=== PATIENT | female | born 1960 | race Caucasian/White ===

== ENCOUNTER 2018-04-29 16:40 | Inpatient (IN) | payer OTHER ==
--- NOTE | 2018-04-29 16:59 | PDOC ---
History of Present Illness - General Stated Complaint: SICK History Source: Patient, Family Exam Limitations: Clinical Condition - History of Present Illness Initial Comments: 04/29/18 16:53 58 yo F with a hx of CAD, ESRD, HLD, anemia, atrial fibrillation, HTN, DM, on g tube, and tracheostomy presents to the emergency department from [facility] for worsening SOB and AMS. Per the daughter, she states her mother has been acting off since receiving her flu vaccine 2 days ago. Normally, she interacts with nods during conversation but is now having her eyes wander, having periods of tachypnea, and seeming distressed. Per the nursing charts, a cxr was done on 04/27 that shows an infiltrate consistent with a pneumonia in the right lung. Per the daughter, the patient did not receive abx. Per the patient, she was able to nod to basic questions; she endorses having SOB, chest pain, abdominal pain, and overall malaise. Past History - Past Medical History Allergies/Adverse Reactions: Allergies Allergy/AdvReac Type Severity Reaction Status Date / Time fluoxetine HCl [From Prozac] Allergy Verified 04/29/18 17:02 Home Medications: Ambulatory Orders Acetaminophen 650 mg PO Q6H PRN 05/18/17 Diphenhydramine HCl 50 mg PO Q6H PRN 05/18/17 Metoclopramide HCl 5 mg PO TID 05/18/17 Montelukast Sodium [Singulair] 10 mg PO DAILY 05/18/17 Multivit-Min/Iron/Folic/Vit K1 [Centrum Chewables Adults Tab] 1 each PO DAILY Omeprazole 20 mg PO DAILY 05/18/17 Acetaminophen [Tylenol .Regular Strength -] 650 mg PO Q4H PRN tablet 05/27/17 Albuterol 2.5/Ipratropium 0.5 [Duoneb -] 1 amp NEB Q4H PRN amp 05/27/17 Amino Acids/Protein Hydrolys [Prosource No Carb Liquid Pkt] 30 ml PO BID@0800, 1730 packet 05/27/17 Budesonide [Pulmicort 0.5 mg Nebulizer -] 1 amp NEB RBID amp 05/27/17 Folic Acid - 1 mg PO DAILY 30 Days #30 tablet 05/27/17 Megestrol Acetate Oral Susp [Megace Oral Suspension -] 400 mg PO DAILY 30 Days # 300 ml 05/27/17 Montelukast Na [Singulair -] 10 mg PO HS tablet 05/27/17 Omeprazole 20 mg PO BID #60 capsule. 05/27/17 Polyethylene Glycol 3350 [Miralax 119 gm Btl -] 17 gm PO DAILY bottle 05/27/17 Sucralfate Oral Suspension [Carafate Oral Suspension -] 1 gm PO QID #0 ml Sucralfate [Carafate -] 1 gm PO QID 30 Days #120 tablet 05/27/17 Vitamin B Comp W-C [Total B with C -] 1 each PO DAILY tablet 05/27/17 Asthma: Yes COPD: Yes Diabetes: Yes (IDDM) GI Disorders: Yes (diverticulitis, diverticulosis) HTN: Yes - Surgical History Abdominal Surgery: Yes (TUMOR,GASTRIC BYPASS,HERNIA X2) Cholecystectomy: Yes Lung Surgery: Yes (LOBECTOMY RT) - Suicide/Smoking/Psychosocial Hx Smoking History: Never smoked Have you smoked in the past 12 months: No If you are a former smoker, when did you quit?: 10 YRS AGO Hx Alcohol Use: No Drug/Substance Use Hx: No Substance Use Type: None Hx Substance Use Treatment: No Review of Systems - Review of Systems Able to Perform ROS?: No (non verbal) Is the patient limited [place] proficient: No HEENTM: No: Mouth Pain *Physical Exam - Physical Exam General Appearance: Yes: Nourished, Appropriately Dressed, Mild Distress, Obese , Other (anxious and uncomfortable ) HEENT: positive: EOMI, ORLIN, Normal Voice, Symmetrical, Pharynx Normal. negative: Pale Conjunctivae, Scleral Icterus (R), Scleral Icterus (L), Muffled/ Hoarse voice, Pharyngeal Erythema, Tonsillar Exudate, Tonsillar Erythema, Nasal Congestion, Rhinorrhea Neck: positive: Trachea midline, Supple, Other (tracheostomy in place). negative: Tender, Lymphadenopathy (R), Lymphadenopathy (L), Tender lateral, Tender midline Respiratory/Chest: positive: Crackles, Rales, Rhonchi, Other (bilateral rhonchi , crackles, and rales throughout the lung espinosa with decreased breath sounds. ) . negative: Chest Tender, Lungs Clear, Normal Breath Sounds, Respiratory Distress, Accessory Muscle Use Cardiovascular: positive: Regular Rhythm, Regular Rate, S1, S2. negative: Systolic Murmur Gastrointestinal/Abdominal: positive: Normal Bowel Sounds, Tender (LLQ tenderness point of maximal tenderness. tenderness throughout the abdomen), Other (g tube in for 2 weeks). negative: Guarding, Rebound Lymphatic: negative: Adenopathy Musculoskeletal: positive: Other (patient has the following findings: 8x8 cm stage 3 ulcer with obvious infection, 2x 4x4cm stage 2 ulcers on right posterior shoulder). negative: Normal Inspection, CVA Tenderness Extremity: positive: Other (the following have digit necrosis: Left hand has DIP necrosis of the third digit. Right hand has digit necrosis of the 2nd and 3rd digit. both hands are cold to touch with poor radial pulses. Bilateral toes all 10 are necrosed. ). negative: Normal Capillary Refill, Normal Inspection, Normal Range of Motion, Tender Integumentary: positive: Dry, Warm, Pale. negative: Swelling Neurologic: positive: Alert. negative: EOM Palsy, Facial Droop ED Treatment Course - LABORATORY CBC & Chemistry Diagram: 04/29/18 17:30 04/29/18 17:30 Medical Decision Making - Medical Decision Making 58 yo F with a hx of CAD, ESRD, HLD, anemia, atrial fibrillation, HTN, DM, on g tube, and tracheostomy presents to the emergency department from [facility] for worsening SOB and AMS. Initial vitals: Temperature: 98.8 F, Pulse 72 bpm, 119/54, and 100% O2. Work up: ddx: pna vs uri vs acs Interventions: patient is coming with a known right lobe PNA from a previous xray the day prior. will start on vancomycin, zosyn, tylenol, and fluids. Laboratory Tests 04/29/18 04/29/18 04/29/18 17:30 17:30 17:30 WBC 23.6 H RBC 3.25 L Hgb 10.0 L Hct 30.3 L D MCV 93.3 MCH 30.6 MCHC 32.8 RDW 18.8 H Plt Count 278 MPV 7.2 L Absolute Neuts (auto) 22.6 H Neutrophils % 95.7 H D Neutrophils % (Manual) 88.0 H Band Neutrophils % 3.0 Lymphocytes % 1.7 L D Lymphocytes % (Manual) 1.0 L Monocytes % 2.3 L Monocytes % (Manual) 8 Eosinophils % 0.1 D Basophils % 0.2 Nucleated RBC % 0 Hypochromia 1+ Platelet Estimate Adequate Platelet Comment No clumping noted Polychromasia 1+ Anisocytosis 1+ Macrocytosis 1+ PT with INR 15.70 H INR 1.33 H PTT (Actin FS) 35.2 Anticoagulation Therapy Puncture Site ABG pH ABG pCO2 at Pt Temp ABG pO2 at Pt Temp ABG HCO3 ABG O2 Sat (Measured) ABG O2 Content ABG Base Excess Young Test VBG pH POC VBG pCO2 POC VBG pO2 Mixed VBG HCO3 Carboxyhemoglobin Methemoglobin O2 Delivery Device Oxygen Flow Rate Vent Mode Vent Rate Mechanical Rate Pressure Support Vent Sodium 128 L Potassium 5.1 Chloride 96 L Carbon Dioxide 26 Anion Gap 6 L BUN 64 H Creatinine 2.7 H Creat Clearance w eGFR 18.23 Random Glucose 52 L Lactic Acid Calcium 7.2 L Total Bilirubin 0.3 AST 10 L ALT < 6 L Alkaline Phosphatase 128 H Creatine Kinase 20 L CK-MB (CK-2) 2.7 Troponin I Total Protein 5.5 L Albumin 1.1 L Urine Color Urine Appearance Urine pH Ur Specific [place] Urine Protein Urine Glucose (UA) Urine Ketones Urine Blood Urine Nitrite Urine Bilirubin Urine Urobilinogen Ur Leukocyte Esterase Urine WBC (Auto) Urine RBC (Auto) Urine Mucus Digoxin Blood Type Antibody Screen 04/29/18 04/29/18 04/29/18 17:30 17:30 17:30 WBC RBC Hgb Hct MCV MCH MCHC RDW Plt Count MPV Absolute Neuts (auto) Neutrophils % Neutrophils % (Manual) Band Neutrophils % Lymphocytes % Lymphocytes % (Manual) Monocytes % Monocytes % (Manual) Eosinophils % Basophils % Nucleated RBC % Hypochromia Platelet Estimate Platelet Comment Polychromasia Anisocytosis Macrocytosis PT with INR INR PTT (Actin FS) Anticoagulation Therapy Puncture Site ABG pH ABG pCO2 at Pt Temp ABG pO2 at Pt Temp ABG HCO3 ABG O2 Sat (Measured) ABG O2 Content ABG Base Excess Young Test VBG pH 7.26 L POC VBG pCO2 55.6 H POC VBG pO2 23.3 L Mixed VBG HCO3 24.0 Carboxyhemoglobin Methemoglobin O2 Delivery Device Oxygen Flow Rate Vent Mode Vent Rate Mechanical Rate Pressure Support Vent Sodium Potassium Chloride Carbon Dioxide Anion Gap BUN Creatinine Creat Clearance w eGFR Random Glucose Lactic Acid 1.3 Calcium Total Bilirubin AST ALT Alkaline Phosphatase Creatine Kinase CK-MB (CK-2) Troponin I Total Protein Albumin Urine Color Red Urine Appearance Cloudy Urine pH 8.0 D Ur Specific [place] 1.012 Urine Protein 3+ H Urine Glucose (UA) Negative Urine Ketones Negative Urine Blood 3+ H Urine Nitrite Negative Urine Bilirubin Negative Urine Urobilinogen Negative Ur Leukocyte Esterase 1+ H Urine WBC (Auto) 92 Urine RBC (Auto) 437 Urine Mucus Rare Digoxin Blood Type Antibody Screen 04/29/18 04/29/18 04/29/18 17:30 17:30 17:30 WBC RBC Hgb Hct MCV MCH MCHC RDW Plt Count MPV Absolute Neuts (auto) Neutrophils % Neutrophils % (Manual) Band Neutrophils % Lymphocytes % Lymphocytes % (Manual) Monocytes % Monocytes % (Manual) Eosinophils % Basophils % Nucleated RBC % Hypochromia Platelet Estimate Platelet Comment Polychromasia Anisocytosis Macrocytosis PT with INR INR PTT (Actin FS) Anticoagulation Therapy Puncture Site ABG pH ABG pCO2 at Pt Temp ABG pO2 at Pt Temp ABG HCO3 ABG O2 Sat (Measured) ABG O2 Content ABG Base Excess Young Test VBG pH POC VBG pCO2 POC VBG pO2 Mixed VBG HCO3 Carboxyhemoglobin Methemoglobin O2 Delivery Device Oxygen Flow Rate Vent Mode Vent Rate Mechanical Rate Pressure Support Vent Sodium Potassium Chloride Carbon Dioxide Anion Gap BUN Creatinine Creat Clearance w eGFR Random Glucose Lactic Acid Calcium Total Bilirubin AST ALT Alkaline Phosphatase Creatine Kinase CK-MB (CK-2) Troponin I < 0.02 Total Protein Albumin Urine Color Urine Appearance Urine pH Ur Specific [place] Urine Protein Urine Glucose (UA) Urine Ketones Urine Blood Urine Nitrite Urine Bilirubin Urine Urobilinogen Ur Leukocyte Esterase Urine WBC (Auto) Urine RBC (Auto) Urine Mucus Digoxin 0.97 Blood Type O POSITIVE Antibody Screen Negative 04/29/18 17:42 WBC RBC Hgb Hct MCV MCH MCHC RDW Plt Count MPV Absolute Neuts (auto) Neutrophils % Neutrophils % (Manual) Band Neutrophils % Lymphocytes % Lymphocytes % (Manual) Monocytes % Monocytes % (Manual) Eosinophils % Basophils % Nucleated RBC % Hypochromia Platelet Estimate Platelet Comment Polychromasia Anisocytosis Macrocytosis PT with INR INR PTT (Actin FS) Anticoagulation Therapy No Result Required. Puncture Site No Result Required. ABG pH 7.35 ABG pCO2 at Pt Temp 42.9 ABG pO2 at Pt Temp 110.0 H ABG HCO3 23.0 ABG O2 Sat (Measured) 98.5 ABG O2 Content 11.7 L ABG Base Excess -1.9 Young Test No Result Required. VBG pH POC VBG pCO2 POC VBG pO2 Mixed VBG HCO3 Carboxyhemoglobin 1.0 Methemoglobin 0.1 L O2 Delivery Device No Result Required. Oxygen Flow Rate No Result Required. Vent Mode No Result Required. Vent Rate No Result Required. Mechanical Rate No Result Required. Pressure Support Vent No Result Required. Sodium Potassium Chloride Carbon Dioxide Anion Gap BUN Creatinine Creat Clearance w eGFR Random Glucose Lactic Acid Calcium Total Bilirubin AST ALT Alkaline Phosphatase Creatine Kinase CK-MB (CK-2) Troponin I Total Protein Albumin Urine Color Urine Appearance Urine pH Ur Specific [place] Urine Protein Urine Glucose (UA) Urine Ketones Urine Blood Urine Nitrite Urine Bilirubin Urine Urobilinogen Ur Leukocyte Esterase Urine WBC (Auto) Urine RBC (Auto) Urine Mucus Digoxin Blood Type Antibody Screen labs were deranged on a multitude of fronts including the followin.6 WBC, 10 hgb, 7.35 pH, 52 glucose, 2.7 creatinine, 1.1 albumin and UA showing 1+ leukocyte esterase with [address] negative. [address] Power was contacted who accepted admission. At the time of admission, head ct, abdomen pelvis CT, and chest CT were pending. Dispo: Admit *DC/Admit/Observation/Transfer Diagnosis at time of Disposition: Sepsis Qualifiers: Sepsis type: sepsis due to unspecified organism Qualified Code(s): A41.9 - Sepsis, unspecified organism - Referrals - Patient Instructions - Post Discharge Activity
[2018-04-29] MEDS ORDERED: PIPERACILLIN/TAZOB 2.25 GM 2.25 GM in DEXTROSE 5%-WATER - 50 ML IVPB ONE (17:05)
[2018-04-29] MEDS ORDERED: VANCOMYCIN 1,000 MG in DEXTROSE 5%-WATER - 250 ML IVPB ONE (17:05)
[2018-04-29] MEDS ORDERED: PIPERACILLIN/TAZOB 2.25 GM 2.25 GM/50 ML BAG IVPB ONE (17:23)
[2018-04-29] MEDS ORDERED: VANCOMYCIN 1 GRAM (PRE-DOCKED) 1,000 MG/250 ML BAG IVPB ONE (17:23)
[2018-04-29 17:39] LABS: VENOUS PC02 55.6 mmHg (38-52); VENOUS PH 7.26 (7.32-7.42); VENOUS PO2 23.3 mmHg (28-48)
[2018-04-29 17:40] LABS: HEMATOCRIT 30.3 % (32.4-45.2); LYMPH % 1.7 % (8-40); MCH 30.6 pg (25.7-33.7); MCHC 32.8 g/dl (32.0-36.0); MEAN CELL VOLUME 93.3 fl (80-96); MEAN PLT VOLUME 7.2 fl (7.5-11.1); NEUT % 95.7 % (42.8-82.8); PLATELET COUNT 278 K/MM3 (134-434); RBC 3.25 M/mm3 (3.60-5.2); RDW 18.8 % (11.6-15.6); WHITE BLOOD COUNT 23.6 K/mm3 (4.0-10.0)
[2018-04-29 17:41] LABS: BASO % 0.2 % (0-2.0); EOS % 0.1 % (0-4.5); MONO % 2.3 % (3.8-10.2)
[2018-04-29 17:45] LABS: URINE APPEARANCE CLOUDY; URINE BILIRUBIN NEGATIVE (<2.0 mg/dL); URINE COLOR RED; URINE GLUCOSE (UA) NEGATIVE (NEGATIVE); URINE KETONE NEGATIVE (NEGATIVE); URINE LEUK ESTERASE 1+ (NEGATIVE); URINE NITRITE NEGATIVE (NEGATIVE); URINE PROTEIN 3+ (NEGATIVE); URINE UROBILINOGEN NEGATIVE mg/dL (0.2-1.0)
[2018-04-29 17:48] LABS: URINE MUCUS RARE
[2018-04-29 17:54] LABS: INR 1.33 (0.83-1.09); PROTHROMBIN TIME (PATIENT) 15.7 SEC (9.7-13.0)
[2018-04-29 17:56] LABS: ACTIVATED PTT 35.2 SECONDS (25.2-36.5)
[2018-04-29 18:09] LABS: ALBUMIN 1.1 g/dl (3.4-5.0); ALK PHOS 128 U/L (45-117); ANION GAP 6 MMOL/L (8-16); BILIRUBIN,TOTAL 0.3 mg/dL (0.2-1); BLOOD UREA NITROGEN 64 mg/dL (7-18); CALCIUM 7.2 mg/dL (8.5-10.1); CHLORIDE 96 mmol/L (98-107); CO2 26 mmol/L (21-32); CREATININE 2.7 mg/dL (0.55-1.3); GLUCOSE,RANDOM 52 mg/dL (74-106); POTASSIUM 5.1 mmol/L (3.5-5.1); SGOT/AST 10 U/L (15-37); SGPT/ALT < 6 U/L (13-61); SODIUM 128 mmol/L (136-145); TOT PROT 5.5 g/dl (6.4-8.2)
[2018-04-29 18:12] LABS: ANISOCYTOSIS 1+; MACROCYTOSIS 1+
[2018-04-29 18:13] LABS: PLATELET ESTIMATE ADEQUATE
[2018-04-29] MEDS ORDERED: SODIUM CHLORIDE 1,000 ML IV STA (18:13)
[2018-04-29] MEDS ORDERED: DEXTROSE 50%-WATER - 25 GM/50 ML VIAL IVPUSH ONE (18:13)
[2018-04-29] MEDS ORDERED: DEXTROSE 50%-WATER 25 GM/50 ML DISP.SYRIN ONE (18:29)
[2018-04-29 18:34] LABS: ARTERIAL BLD GAS O2 SATURATION 98.5 % (90-98.9); ARTERIAL BLOOD GAS BASE EXCESS -1.9 meq/l (-2-2); ARTERIAL BLOOD GAS PCO2 42.9 mmHg (35-45); ARTERIAL BLOOD GAS pH 7.35 (7.35-7.45)
--- NOTE | 2018-04-29 18:35 | PDOC ---
Attending Attestation - Resident Resident Name: Lloyd Hathaway - ED Attending Attestation I have performed the following: I have examined & evaluated the patient, The case was reviewed & discussed with the resident, I agree w/resident's findings & plan, Exceptions are as noted - HPI HPI: 04/29/18 18:28 "The patient is a 58 year old female, with a significant past medical history of CAD, HLD, anemia, atrial fibrillation, HTN, DM, s/p G tube and trach, who presents to the emergency department from [facility], accompanied by daughter, with shortness of breath and altered mental status. Patients daughter reports 2 days of subjective fevers and lethargy. She notes that over the past 2 days pt has also had episodes of tachypnea and increased work of breathing. The patient is non verbal (due to tracheostomy) but is responsive with nodding. Pt had CXR at OR 2 days ago that showed RLL PNA. The patient denies cough, headache and dizziness. Denies, chills, nausea, vomit, diarrhea and constipation. Denies dysuria, frequency, urgency and hematuria. Allergies: Fluoxetine HCl Past surgical history: tumor removal, gastric bypass, hernia repair x2, right lobectomy, cholecystectomy Social history: None reported - Physicial Exam PE: 04/29/18 18:35 Agree with resident exam - Medical Decision Making 04/29/18 18:37 58 F with SOB, lethargy. Found on CXR 2 days ago to have PNA. Pt tachynpeic in ED but otherwise stable on vent. - Labs, cultures - CT head - CT chest - IVF, abx - Admit
[2018-04-29] MEDS ORDERED: ACETAMINOPHEN 1000 MG/100 ML VIAL (NON FORMULARY) IVPB ONE (18:42)
[2018-04-29] MEDS ORDERED: ACETAMINOPHEN INJECTION 100 ML IVPB ONE (18:52)
[2018-04-29] MEDS ORDERED: morphine CARPU-JECT 4 MG/1 ML DISP.SYRIN IVPUSH ONE (20:56)
[2018-04-29] MEDS ORDERED: MORPHINE SULFATE 2 MG/ML VIAL ONE (21:08)
[2018-04-29] MEDS ORDERED: SODIUM CHLORIDE 1,000 ML IV SCH (21:45)
--- NOTE | 2018-04-29 21:46 | HP ---
Admitting History and Physical - Admission History of Present Illness: 58 yo F with a hx of CAD, ESRD, HLD, anemia, atrial fibrillation, HTN, DM, on g tube, and tracheostomy presents to the emergency department from [facility] for worsening SOB and AMS. Per the daughter, she states her mother has been acting off since receiving her flu vaccine 2 days ago. Normally, she interacts with nods during conversation but is now having her eyes wander, having periods of tachypnea, and seeming distressed. Per the nursing charts, a cxr was done on 04/27 that shows an infiltrate consistent with a pneumonia in the right lung. Per the daughter, the patient did not receive abx. Per the patient, she was able to nod to basic questions; she endorses having SOB, chest pain, abdominal pain, and overall malaise. 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 She had PICC inserted and started on supplemental nutrition. On 10/2017 she was admitted to [facility] in septic shock by MRSA --Cx by [facility] / Resp failure / drug induced thromocytopenia / necrosis of LE toes and several finger of both hands / she remained on pressors >2 weeks/---at that time she was transferred to [facility] ---our office had no follow up after transferred. History Source: Medical Record Limitations to Obtaining History: Intubated - Past Medical History Cardiovascular: Yes: AFIB, CHF, HTN, Hyperlipdemia Pulmonary: Yes: Cancer, COPD, Pneumonia, Previously Intubated, Other (partial right pneumonectomy) Gastrointestinal: Yes: Cancer (GIST), Diverticulitis, Other (GIST tumor, adhesions, sigmoid colitis/diverticulitis) Renal/: Yes: Renal Inusuff ...LMP: 03/25/16 Heme/Onc: Yes: Thrombocytopenia Infectious Disease: Yes: MRSA (sepsis MRSA blood) Endocrine: Yes: Diabetes Mellitus - Past Surgical History Past Surgical History: Yes: Bariatric Surgery (with excision of GIST tumor), Cholecystectomy, Colectomy - Smoking History Smoking history: Never smoked Have you smoked in the past 12 months: No If you are a former smoker, when did you quit?: 10 YRS AGO - Alcohol/Substance Use Hx Alcohol Use: No History of Substance Use: reports: Prescription (opioid pain medication - [facility] record ) - Social History Usual Living Arrangement: Yes: Jail ADL: Independent History of Recent Travel: No Home Medications - Allergies Allergies/Adverse Reactions: Allergies Allergy/AdvReac Type Severity Reaction Status Date / Time fluoxetine HCl [From Prozac] Allergy Verified 04/29/18 17:02 - Home Medications Home Medications: Ambulatory Orders Acetaminophen 650 mg PO Q6H PRN 05/18/17 Diphenhydramine HCl 50 mg PO Q6H PRN 05/18/17 Metoclopramide HCl 5 mg PO TID 05/18/17 Montelukast Sodium [Singulair] 10 mg PO DAILY 05/18/17 Multivit-Min/Iron/Folic/Vit K1 [Centrum Chewables Adults Tab] 1 each PO DAILY Omeprazole 20 mg PO DAILY 05/18/17 Acetaminophen [Tylenol .Regular Strength -] 650 mg PO Q4H PRN tablet 05/27/17 Albuterol 2.5/Ipratropium 0.5 [Duoneb -] 1 amp NEB Q4H PRN amp 05/27/17 Amino Acids/Protein Hydrolys [Prosource No Carb Liquid Pkt] 30 ml PO BID@0800, 1730 packet 05/27/17 Budesonide [Pulmicort 0.5 mg Nebulizer -] 1 amp NEB RBID amp 05/27/17 Folic Acid - 1 mg PO DAILY 30 Days #30 tablet 05/27/17 Megestrol Acetate Oral Susp [Megace Oral Suspension -] 400 mg PO DAILY 30 Days # 300 ml 05/27/17 Montelukast Na [Singulair -] 10 mg PO HS tablet 05/27/17 Omeprazole 20 mg PO BID #60 capsule. 05/27/17 Polyethylene Glycol 3350 [Miralax 119 gm Btl -] 17 gm PO DAILY bottle 05/27/17 Sucralfate Oral Suspension [Carafate Oral Suspension -] 1 gm PO QID #0 ml Sucralfate [Carafate -] 1 gm PO QID 30 Days #120 tablet 05/27/17 Vitamin B Comp W-C [Total B with C -] 1 each PO DAILY tablet 05/27/17 Fentanyl 12 patch TD Q3D 04/30/18 Aspirin 81 mg PO DAILY 05/01/18 Clopidogrel 75 mg PEG DAILY 05/01/18 Collagenase Clostridium Hist. [Santyl -] 250 unit TP DAILY 05/01/18 Famotidine 20 tab PEG BID 05/01/18 Heparin - 5,000 unit SQ Q8H 05/01/18 Insulin Aspart [Novolog] 100 unit SQ BID 05/01/18 Metoprolol Tartrate [Lopressor] 100 mg PEG Q8H 05/01/18 Nitroglycerin Patch [Nitro-Dur] 0.4 mg TD DAILY 05/01/18 Silver Sulfadiazine 1% Top Cr [Silvadene -] 1 applic TP DAILY 05/01/18 Review of Systems Unable to obtain ROS, reason: intubated at time of exam - Review of Systems Constitutional: reports: Loss of Appetite, Weakness Eyes: reports: No Symptoms HENT: reports: No Symptoms Neck: reports: No Symptoms Cardiovascular: reports: Shortness of Breath. denies: Chest Pain Respiratory: reports: SOB, Other (intubated) Gastrointestinal: reports: No Symptoms, Other (PEG) Integumentary: reports: Other (gangrene toes and fingers.) Neurological: reports: Pre-Existing Deficit Hematology/Lymphatic: reports: No Symptoms Psychiatric: reports: No Symptoms Physical Examination Vital Signs: Vital Signs Temperature 98.8 F 04/29/18 17:47 Pulse Rate 72 04/29/18 19:10 Respiratory Rate 14 04/29/18 19:10 Blood Pressure 119/54 L 04/29/18 19:10 O2 Sat by Pulse Oximetry (%) 100 04/29/18 19:10 Constitutional: Yes: Calm, Other (intubated) Eyes: Yes: Conjunctiva Clear, EOM Intact HENT: Yes: Atraumatic, Normocephalic Neck: Yes: Supple, Trachea Midline Cardiovascular: Yes: Regular Rate and Rhythm Respiratory: Yes: Rhonchi Gastrointestinal: Yes: Distention Renal/: Yes: WNL Breast(s): Yes: WNL, Gynecomastia Musculoskeletal: Yes: Muscle Weakness Extremities: Yes: Cyanosis (gangrene all toes right hand distal 2nd and 3rd digit left hand distal 3rd digit) Edema: Yes Edema: LUE: 3+, RUE: 3+, LLE: 3+, RLE: 3+ Peripheral Pulses WNL: Yes (gangrene toes / fingers) Integumentary: Yes: Pressure Ulcer Neurological: Yes: Alert Psychiatric: Yes: Alert Labs: CBC, BMP 04/29/18 17:30 04/29/18 17:30 Problem List - Problems (1) Sepsis Code(s): A41.9 - SEPSIS, UNSPECIFIED ORGANISM Qualifiers: Sepsis type: methicillin resistant Staphylococcus aureus Qualified Code(s) : A41.02 - Sepsis due to Methicillin resistant Staphylococcus aureus (2) Respiratory failure, acute and chronic Code(s): J96.20 - ACUTE AND CHR RESP FAILURE, UNSP W HYPOXIA OR HYPERCAPNIA (3) Altered mental status Code(s): R41.82 - ALTERED MENTAL STATUS, UNSPECIFIED (4) CKD (chronic kidney disease) Code(s): N18.9 - CHRONIC KIDNEY DISEASE, UNSPECIFIED (5) PVD (peripheral vascular disease) Code(s): I73.9 - PERIPHERAL VASCULAR DISEASE, UNSPECIFIED (6) CAD (coronary artery disease) Code(s): I25.10 - ATHSCL HEART DISEASE OF [place] CORONARY ARTERY W/O ANG PCTRS (7) Atrial fibrillation Code(s): I48.91 - UNSPECIFIED ATRIAL FIBRILLATION (8) Hypertension Code(s): I10 - ESSENTIAL (PRIMARY) HYPERTENSION (9) Diabetes mellitus Code(s): E11.9 - TYPE 2 DIABETES MELLITUS WITHOUT COMPLICATIONS (10) Nyafq-xy-pohlhes renal failure Code(s): N17.9 - ACUTE KIDNEY FAILURE, UNSPECIFIED; N18.9 - CHRONIC KIDNEY DISEASE, UNSPECIFIED Qualifiers: Qualified Code(s): N17.9 - Acute kidney failure, unspecified; N18.9 - Chronic kidney disease, unspecified Assessment/Plan assmt #Sepsis await c/s emepric abx Vanco given in ER X1 will hold further dose in view of renal status ID consult Dr Aiken #resp failure acute on chronic - patient with trache - hx unclear Ac12/ 40 FiO2 CXR opacified right hemithorax PNA / atelectasis / fluid overload Pulmonary consult # [facility] CKD baseline unknown / proteinuria / hematuria appreciate renal consult #PVD gangrene toes / fingers vascular consult wound care silvadene / lidocaine #DM hx multiple episodes of hypoglycemia will monitor BS no coverage and no hypoglycemics #HTN monitor Bp and treat as needed # severe malnutrition albumin 1.[address] start feeding - nephro AND add protein supplement HOB elevated
[2018-04-30] MEDS: ALBUTEROL SO4 2.5/IPRATROPIUM 0.5 INH SOL 3 ML VIAL.NEB. NEB SCH ×4 (08:13→21:00)
[2018-04-30 08:29] LABS: HEMATOCRIT 26.5 % (32.4-45.2); HEMOGLOBIN 8.9 GM/dL (10.7-15.3); MCH 30.9 pg (25.7-33.7); MCHC 33.5 g/dl (32.0-36.0); MEAN CELL VOLUME 92.1 fl (80-96); MEAN PLT VOLUME 7.2 fl (7.5-11.1); PLATELET COUNT 263 K/MM3 (134-434); RBC 2.88 M/mm3 (3.60-5.2); RDW 18.4 % (11.6-15.6); WHITE BLOOD COUNT 21.2 K/mm3 (4.0-10.0)
[2018-04-30 09:11] LABS: ANION GAP 7 MMOL/L (8-16); BLOOD UREA NITROGEN 69 mg/dL (7-18); CHLORIDE 97 mmol/L (98-107); CO2 24 mmol/L (21-32); CREATININE 2.8 mg/dL (0.55-1.3); PHOSPHOROUS 3.1 mg/dL (2.5-4.9); SODIUM 128 mmol/L (136-145)
[2018-04-30] MEDS ORDERED: DEXTROSE 50%-WATER - 25 GM/50 ML VIAL IVPUSH ONE (09:25)
[2018-04-30 09:26] LABS: CALCIUM 6.9 mg/dL (8.5-10.1); GLUCOSE,RANDOM 28 mg/dL (74-106)
[2018-04-30] MEDS ORDERED: DEXTROSE 50%-WATER 25 GM/50 ML DISP.SYRIN ONE (09:35)
--- NOTE | 2018-04-30 09:39 | PN ---
Progress Note (short form) - Note Progress Note: ID consult dictated imp/reccd sepsis bacteremia pneumonia/atelectasis ckd 58 yo female with trach and peg admitted from NH with SOB and Mental status changed she has left cxry whiteout , leukocytosis multiple necrotic fingers and toes, a stage 3 sacral ulcer and positive blood cultures prior history of MRSA sepsis per Dr Power\ plan cultures-add sputum, urinary antigens continue vanco/zosyn contact isolation MRSA repeat blood cultures in am echo pulmonary consult
--- NOTE | 2018-04-30 10:06 | EKG ---
Test Reason : Blood Pressure : / mmHG Vent. Rate : 069 BPM Atrial Rate : 069 BPM P-R Int : 158 ms QRS Dur : 072 ms QT Int : 286 ms P-R-T Axes : 064 035 156 degrees QTc Int : 306 ms NORMAL SINUS RHYTHM LOW VOLTAGE QRS NONSPECIFIC T WAVE ABNORMALITY ABNORMAL ECG WHEN COMPARED WITH ECG OF 18-MAY-2017 15:04, T WAVE VARIATION Confirmed by EMMY SEGOVIA MD ([id number]) on 04/30/2018 10:05:37 AM Referred By: Confirmed By:EMMY SEGOVIA MD
[2018-04-30 11:01] LABS: ARTERIAL BLD GAS O2 SATURATION 98.2 % (90-98.9); ARTERIAL BLOOD GAS BASE EXCESS -1.5 meq/l (-2-2); ARTERIAL BLOOD GAS PCO2 38.9 mmHg (35-45); ARTERIAL BLOOD GAS pH 7.39 (7.35-7.45)
[2018-04-30 11:02] LABS: ALLENS TEST POSITIVE
[2018-04-30] MEDS: PIPERACILLIN/TAZOB 2.25 GM 2.25 GM in DEXTROSE 5%-WATER - 50 ML IVPB SCH ×2 (11:29→21:01)
[2018-04-30 11:42] LABS: AMYLASE 7 U/L (25-115); LIPASE 28 U/L (73-393)
[2018-04-30] MEDS: DEXTROSE 5%-NORMAL SALINE 1,000 ML IV SCH (12:29)
--- NOTE | 2018-04-30 13:17 | CONSULT ---
Consult Consult Specialty:: Nephrology Reason for Consultation:: HOPE - History of Present Illness Chief Complaint: sent in for hypoxia and altered mental status History of Present Illness: Pt is a 58 year old female with pmhx of CAD, HLD, anemia, a-fib, htn, dm, chronic resp failure with trache and vent and possible ckd who was sent in from [facility] for shortness of breath and altered mental status. Pt is awake and interactive however is unable to give much history as she is on a vent. She does nod to questions. Chart was reviewed. I was called to evaluate the pt for elevated creatinine. She does not have ESRD. - History Source History Provided By: Medical Record - Past Medical History Cardio/Vascular: Yes: HTN, Hyperlipdemia Pulmonary: Yes: COPD, Pneumonia, Previously Intubated Gastrointestinal: Yes: Diverticulitis, Other (GIST tumor, adhesions, sigmoid colitis/diverticulitis) Renal/: Yes: Renal Inusuff ...LMP: 03/25/16 Infectious Disease: Yes: MRSA (sepsis MRSA blood) Additional Medical History: obesity - Past Surgical History Past Surgical History: Yes: Bariatric Surgery (with excision of GIST tumor), Cholecystectomy, Colectomy - Alcohol/Substance Use Hx Alcohol Use: No History of Substance Use: reports: Prescription (opioid pain medication - [facility] record ) - Smoking History Smoking history: Never smoked Have you smoked in the past 12 months: No If you are a former smoker, when did you quit?: 10 YRS AGO - Social History ADL: Independent History of Recent Travel: No Home Medications - Allergies Allergies/Adverse Reactions: Allergies Allergy/AdvReac Type Severity Reaction Status Date / Time fluoxetine HCl [From Prozac] Allergy Verified 04/29/18 17:02 - Home Medications Home Medications: Ambulatory Orders Acetaminophen 650 mg PO Q6H PRN 05/18/17 Diphenhydramine HCl 50 mg PO Q6H PRN 05/18/17 Metoclopramide HCl 5 mg PO TID 05/18/17 Montelukast Sodium [Singulair] 10 mg PO DAILY 05/18/17 Multivit-Min/Iron/Folic/Vit K1 [Centrum Chewables Adults Tab] 1 each PO DAILY Omeprazole 20 mg PO DAILY 05/18/17 Acetaminophen [Tylenol .Regular Strength -] 650 mg PO Q4H PRN tablet 05/27/17 Albuterol 2.5/Ipratropium 0.5 [Duoneb -] 1 amp NEB Q4H PRN amp 05/27/17 Amino Acids/Protein Hydrolys [Prosource No Carb Liquid Pkt] 30 ml PO BID@0800, 1730 packet 05/27/17 Budesonide [Pulmicort 0.5 mg Nebulizer -] 1 amp NEB RBID amp 05/27/17 Folic Acid - 1 mg PO DAILY 30 Days #30 tablet 05/27/17 Megestrol Acetate Oral Susp [Megace Oral Suspension -] 400 mg PO DAILY 30 Days # 300 ml 05/27/17 Montelukast Na [Singulair -] 10 mg PO HS tablet 05/27/17 Omeprazole 20 mg PO BID #60 capsule. 05/27/17 Polyethylene Glycol 3350 [Miralax 119 gm Btl -] 17 gm PO DAILY bottle 05/27/17 Sucralfate Oral Suspension [Carafate Oral Suspension -] 1 gm PO QID #0 ml Sucralfate [Carafate -] 1 gm PO QID 30 Days #120 tablet 05/27/17 Vitamin B Comp W-C [Total B with C -] 1 each PO DAILY tablet 05/27/17 Family Disease History - Family Disease History Family History: Unable to Obtain Review of Systems Unable to obtain ROS, reason: not verbal, very limited - Review of Systems Constitutional: reports: Weakness. denies: Chills Cardiovascular: reports: Shortness of Breath Respiratory: reports: SOB Gastrointestinal: denies: Abdominal Pain Physical Exam Vital Signs: Vital Signs Temperature 98.2 F 04/30/18 09:40 Pulse Rate 71 04/30/18 09:40 Respiratory Rate 18 04/30/18 09:40 Blood Pressure 139/64 04/30/18 09:40 O2 Sat by Pulse Oximetry (%) 100 04/30/18 09:40 Constitutional: Yes: Calm Eyes: Yes: Conjunctiva Clear Neck: Yes: Other (trache) Cardiovascular: Yes: S1, S2 Respiratory: Yes: Mechanically Ventilated Gastrointestinal: Yes: Soft, Other (peg) Renal/: Yes: Montoya Present, Hematuria Musculoskeletal: Yes: Muscle Weakness Extremities: Yes: Other (gangrene of distal exremities, fingers and toes) Edema: Yes Edema: LLE: 2+, RLE: 2+ Neurological: Yes: Other (awake and responsive) Psychiatric: Yes: Oriented Labs: CBC, BMP 04/30/18 07:08 04/30/18 07:08 Laboratory Tests 05/26/17 04/29/18 04/29/18 06:30 17:30 17:30 Sodium 128 L Potassium Chloride Carbon Dioxide Anion Gap BUN 64 H Creatinine 0.3 L 2.7 H Urine Protein 3+ H Urine Blood 3+ H 04/30/18 07:08 Sodium 128 L Potassium 5.0 Chloride 97 L Carbon Dioxide 24 Anion Gap 7 L BUN 69 H Creatinine 2.8 H Urine Protein Urine Blood Imaging - Results Chest X-ray: Report Reviewed Problem List - Problems (1) Altered mental status Code(s): R41.82 - ALTERED MENTAL STATUS, UNSPECIFIED (2) Atrial fibrillation Code(s): I48.91 - UNSPECIFIED ATRIAL FIBRILLATION (3) CAD (coronary artery disease) Code(s): I25.10 - ATHSCL HEART DISEASE OF [place] CORONARY ARTERY W/O ANG PCTRS (4) CKD (chronic kidney disease) Code(s): N18.9 - CHRONIC KIDNEY DISEASE, UNSPECIFIED (5) Diabetes mellitus Code(s): E11.9 - TYPE 2 DIABETES MELLITUS WITHOUT COMPLICATIONS (6) PVD (peripheral vascular disease) Code(s): I73.9 - PERIPHERAL VASCULAR DISEASE, UNSPECIFIED (7) Respiratory failure, acute and chronic Code(s): J96.20 - ACUTE AND CHR RESP FAILURE, UNSP W HYPOXIA OR HYPERCAPNIA (8) COPD (chronic obstructive pulmonary disease) Code(s): J44.9 - CHRONIC OBSTRUCTIVE PULMONARY DISEASE, UNSPECIFIED Qualifiers: Assessment/Plan Current Medications Generic Name Dose Route Start Last Admin Trade Name Freq PRN Reason Stop Dose Admin Albuterol/Ipratropium 1 amp 04/30/18 08:00 04/30/18 11:06 Duoneb - NEB 1 amp RQID JOE Administration Piperacillin Sod/Tazobactam 50 mls @ 100 mls/hr 04/30/18 10:00 04/30/18 11:29 Sod 2.25 gm/ Dextrose IVPB 100 mls/hr Q8H-IV JOE Administration Protocol Dextrose/Sodium Chloride 1,000 mls @ 100 mls/hr 04/30/18 10:15 04/30/18 12:29 D5-Ns - IV 100 mls/hr ASDIR JOE Administration Laboratory Tests 04/29/18 17:30 Albumin 1.1 L Impression 1. HOPE 2. CKD with unclear baseline 3. sepsis 4. chronic respiratory failure 5. peripheral vascular disease 6. 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 pt with peg tube 8. PNA 9. altered mental status 10. htn 11. DM 12. a-fib 13. hematuria 14. hyponatremia 15. hypoglycemia 16. severe malnutrition Plan - check ultrasound of the kidneys and bladder - check ua, lytes and graphics coordinator to calc fena - cont d5 ns as glucose was low - monitor blood sugar - follow up ct of the abd/pelvis - check plasma and urine osm - dietary eval as albumin is 1.1 - will workup renal failure and hyponatremia - may need diuretics once more stable - will follow Dr Lira
--- NOTE | 2018-04-30 13:47 | CONS ---
DATE OF CONSULTATION: DATE OF DICTATION: 04/30/2018 Patient was seen and examined. residential records were reviewed. Case was discussed with the primary physician, Dr. Power, at length. This is a 58-year-old woman with a history of CKD, hyperlipidemia, who has a history of a gastric bypass that had in the past been complicated by multiple admissions for aspiration pneumonia and weight loss. In September of 2017, she was at the [facility] for surgical correction of her bypass. 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 At that time, she was evaluated and she was felt to be in need of nutritional support prior to surgery. She had a PICC line placed and she was started on nutrition. In October, she was admitted to [facility] in septic shock, with MRSA. She had acute kidney injury, respiratory failure, necrosis of her hands and fingers, and she was ultimately transferred to an LTAC in [facility] and was lost therefore to local followup and she is now currently residing at [facility]. She now is admitted from the nursing center with worsening shortness of breath and change in mental status. She is apparently normally interactive but, per the daughter, has been less communicative. Per the nursing chart, she had a chest x-ray done on the that showed an infiltrate in the right lung. In the emergency room, the patient had a workup that included cultures and imaging. The imaging is all preliminary and has not been read. The head CT is negative for infiltrate. She is noted to have a white count of 23,000. It is unclear what her baseline renal function is. She was noted to have acute kidney injury with a BUN of 69 and creatinine 2.8. She was noted to have a chest x-ray with a whiteout of her entire right lung as well as some fluffy infiltrate in the left lower base. As I was seeing her in the emergency room, we received a call from Microbiology, and 3 of 4 blood cultures are now growing gram-positive cocci in clusters. She is awake and alert and in no distress. Past medical history is extensive. She has a history of hypertension, hyperlipidemia, COPD, pneumonia, multiple episodes of aspiration pneumonia. She has been previously intubated. As well, she has a history of MRSA sepsis and was in shock, on pressors for 2 weeks at [facility]. She has a history of diverticulitis, a GIST tumor, adhesions, sigmoid colitis, diverticulitis, thrombocytopenia. She has had bariatric surgery with excision of the GIST tumor and gastric bypass, cholecystectomy, colectomy. There is also a history of a right lobectomy in the past. She is currently status post trach and G-tube. SOCIAL HISTORY: Apparently she is a former smoker, stopped 10 years ago, and she is residing at the shelter. She is allergic to PROZAC. Her medication list includes vitamin B, sucralfate, MiraLax, omeprazole, Centrum, Singulair, Megace, folic acid, diphenhydramine, nebulizer treatment, and Tylenol. Review of systems is not available. She denies any pain at present. PHYSICAL EXAMINATION: General: She is a chronically ill-appearing woman in no acute distress. Vital Signs: Temperature is 98.2. She has had no fever since admission. Blood pressure is 139/64. She has not been hypotensive. Pulse is 71. Respiratory rate is 18. She is saturating 100% on FiO2 of 50%. HEENT: Normocephalic. Her eyes are anicteric. She has a trach. Lungs: Diminished breath sounds on the right lung. Heart: Regular rate and rhythm. Abdomen: G-tube site is clean. She has some areas of erythema and subcutaneous edema in both her flanks. She has a stage 3 sacral ulcer that has some eschar but there is no michael purulence. It is foul smelling. Skin: She has necrosis of all her toes on both her feet as well as multiple fingers. There is no active drainage. Extremities: Notable for edema. Her albumin is 1.1, BUN 69, creatinine 2.8, and her white count is 21.2 with a hemoglobin of 8.9, platelets are 263. Imaging: Head CT is negative for infiltrate; chest and abdomen are pending. Chest x-ray reveals a complete right lung whiteout. In summary, this is a 58-year-old woman with sepsis, bacteremia, pneumonia, atelectasis of the right lung, and CKD. Blood and urine cultures have been sent. Would obtain sputum and urinary antigens. Would continue vancomycin and Zosyn. Will continue vancomycin based on levels. A level has been ordered for today. Contact isolation for MRSA. She needs repeat blood cultures done as well as an echo and pulmonary consult. Case was discussed at length with Dr. Power. ALKA SLADE M.D. [place]/[id number]
[2018-04-30] MEDS ORDERED: VANCOMYCIN 500 MG in DEXTROSE 5%-WATER - 100 ML IVPB ONE (14:10)
--- NOTE | 2018-04-30 15:12 | ECHO ---
Name: FABIANA MARX Exam:Adult Echocardiogram Study Date: 04/30/2018 01:13 PM Age: 58 yrs Reason For Study: R/O ENDOCARDITIS Height: 56 in Weight: 149 lb BSA: 1.6 m2 MMode/2D Measurements & Calculations IVSd: 0.77 cm Ao root diam: 2.7 cm LVIDd: 5.2 cm LA dimension: 4.1 cm LVIDs: 3.8 cm LVPWd: 0.72 cm EDV(Teich): 127.8 ml TAPSE: 2.6 cm ESV(Teich): 62.1 ml Doppler Measurements & Calculations MV E max chris: 102.4 cm/sec Ao V2 max: 170.6 cm/sec MV A max chris: 92.5 cm/sec Ao max P.6 mmHg MV E/A: 1.1 MV dec time: 0.13 sec LV V1 max P.1 mmHg MR max chris: 568.7 cm/sec LV V1 max: 101.8 cm/sec MR max P.4 mmHg TR max chris: 380.8 cm/sec PA V2 max: 168.3 cm/sec TR max P.1 mmHg PA max P.3 mmHg PI end-d chris: 237.2 cm/sec Med Peak E' Chris: 4.1 cm/sec Med E/e': 24.8 Lat Peak E' Chris: 11.0 cm/sec Lat E/e': 9.3 Procedure A complete two-dimensional transthoracic echocardiogram was performed (2D, M-mode, Doppler and color flow Doppler). Left Ventricle The left ventricle is normal in size. Left ventricular systolic function is low normal. Ejection Frac tion = 50-55%. Diastolic dysfunction, Grade II (pseudonormalization pattern). Abnormal septal motion. Right Ventricle The right ventricle is normal size. The right ventricular systolic function is normal. RV systolic TD I is 11 cm/s. Atria The left atrial size is normal. Right atrial size is normal. Mitral Valve The mitral valve is normal in structure and function. There is mild mitral valve prolapse. Prolapse o f the posterior mitral leaflet(s). There is moderate mitral regurgitation. Tricuspid Valve The tricuspid valve is normal in structure and function. There is moderate to severe tricuspid regurg itation. Pulmonary artery systolic pressure is at least 70 mmHg assuming RA pressure of 3 mmHg. Aortic Valve There is mild aortic sclerosis.;. No aortic regurgitation is present. Pulmonic Valve The pulmonic valve is not well visualized. Mild pulmonic valvular regurgitation. Great Vessels The aortic root is normal size. Pericardium/Pleura Small pericardial effusion (<1cm). Interpretation Summary The left ventricle is normal in size. Left ventricular systolic function is low normal. Abnormal septal motion Ejection Fraction = 50-55%. Diastolic dysfunction, Grade II (pseudonormalization pattern). The right ventricular systolic function is normal. The left atrial size is normal. Right atrial size is normal. There is mild mitral valve prolapse. Prolapse of the posterior mitral leaflet(s). There is moderate mitral regurgitation. There is moderate to severe tricuspid regurgitation. Pulmonary artery systolic pressure is at least 70 mmHg assuming RA pressure of 3 mmHg There is mild aortic sclerosis.; No aortic regurgitation is present. Mild pulmonic valvular regurgitation. No obvious vegetation are seen. Clinical correlation is recommended. RUCHI if clinically indicated Small pericardial effusion (<1cm) Previous study is not available for comparison Charles Nation MD 04/30/2018 03:11 PM
[2018-04-30 15:50] LABS: URINE APPEARANCE TURBID; URINE BILIRUBIN NEGATIVE (<2.0 mg/dL); URINE COLOR AMBER; URINE GLUCOSE (UA) NEGATIVE (NEGATIVE); URINE KETONE NEGATIVE (NEGATIVE); URINE LEUK ESTERASE 2+ (NEGATIVE); URINE NITRITE NEGATIVE (NEGATIVE); URINE PROTEIN 3+ (NEGATIVE); URINE UROBILINOGEN NEGATIVE mg/dL (0.2-1.0)
--- NOTE | 2018-04-30 15:59 | CON.PULM ---
Consult Consult Specialty:: PULM/CCM Referred by:: RICHA Reason for Consultation:: Vent dependent - History of Present Illness History of Present Illness: 58 F, extensive past medical history. Trached and vented due to chronic respiratory failure, septic shock with resultant dry gangrene due of her fingers /toes, CAD, HLD, anemia, AFib, HTN, DM, and CKD. Admitted via the ER from the SNF due to shortness of breath and altered mental status. Patient is currently seen in the ER on AC Mode of vent 40%, saturating 100%. She is awake and responsive and able to follow simple commands. She is able to nod to questioning. She denies SOB or CP. She does report some mild abdominal tenderness. CXR/CT: right opacification that has increased from previous imaging. Bibasilar infiltrates. - History Source History Provided By: Patient, Medical Record Limitations to Obtaining History: Clinical Condition - Past Medical History Cardio/Vascular: Yes: HTN, Hyperlipdemia Pulmonary: Yes: COPD, O2 Dependent, Pneumonia, Previously Intubated. No: Pulmonary Embolus Gastrointestinal: Yes: Diverticulitis, Other (GIST tumor, adhesions, sigmoid colitis/diverticulitis) Renal/: Yes: Renal Inusuff ...LMP: 03/25/16 Infectious Disease: Yes: MRSA (sepsis MRSA blood) Additional Medical History: obesity - Past Surgical History Past Surgical History: Yes: Bariatric Surgery (with excision of GIST tumor), Cholecystectomy, Colectomy - Alcohol/Substance Use Hx Alcohol Use: No History of Substance Use: reports: Prescription (opioid pain medication - [facility] record ) - Smoking History Smoking history: Never smoked Have you smoked in the past 12 months: No If you are a former smoker, when did you quit?: 10 YRS AGO - Social History ADL: Independent History of Recent Travel: No Home Medications - Allergies Allergies/Adverse Reactions: Allergies Allergy/AdvReac Type Severity Reaction Status Date / Time fluoxetine HCl [From Prozac] Allergy Verified 04/29/18 17:02 - Home Medications Home Medications: Ambulatory Orders Acetaminophen 650 mg PO Q6H PRN 05/18/17 Diphenhydramine HCl 50 mg PO Q6H PRN 05/18/17 Metoclopramide HCl 5 mg PO TID 05/18/17 Montelukast Sodium [Singulair] 10 mg PO DAILY 05/18/17 Multivit-Min/Iron/Folic/Vit K1 [Centrum Chewables Adults Tab] 1 each PO DAILY Omeprazole 20 mg PO DAILY 05/18/17 Acetaminophen [Tylenol .Regular Strength -] 650 mg PO Q4H PRN tablet 05/27/17 Albuterol 2.5/Ipratropium 0.5 [Duoneb -] 1 amp NEB Q4H PRN amp 05/27/17 Amino Acids/Protein Hydrolys [Prosource No Carb Liquid Pkt] 30 ml PO BID@0800, 1730 packet 05/27/17 Budesonide [Pulmicort 0.5 mg Nebulizer -] 1 amp NEB RBID amp 05/27/17 Folic Acid - 1 mg PO DAILY 30 Days #30 tablet 05/27/17 Megestrol Acetate Oral Susp [Megace Oral Suspension -] 400 mg PO DAILY 30 Days # 300 ml 05/27/17 Montelukast Na [Singulair -] 10 mg PO HS tablet 05/27/17 Omeprazole 20 mg PO BID #60 capsule. 05/27/17 Polyethylene Glycol 3350 [Miralax 119 gm Btl -] 17 gm PO DAILY bottle 05/27/17 Sucralfate Oral Suspension [Carafate Oral Suspension -] 1 gm PO QID #0 ml Sucralfate [Carafate -] 1 gm PO QID 30 Days #120 tablet 05/27/17 Vitamin B Comp W-C [Total B with C -] 1 each PO DAILY tablet 05/27/17 Review of Systems Unable to obtain ROS, reason: not able to provide Physical Exam Vital Sings: Vital Signs Temperature 98.2 F 04/30/18 09:40 Pulse Rate 71 04/30/18 09:40 Respiratory Rate 27 H 04/30/18 14:01 Blood Pressure 139/64 04/30/18 09:40 O2 Sat by Pulse Oximetry (%) 100 04/30/18 09:40 Constitutional: Yes: Anxious, Other (vented ) Eyes: Yes: Conjunctiva Clear HENT: Yes: Other (Tracheostomy intact ) Neck: Yes: Trachea Midline, Other (Tracheostomy intact ) Cardiovascular: Yes: Regular Rate and Rhythm Respiratory: Yes: Diminished, Dullness, Mechanically Ventilated, Poor Air Entry , Rhonchi. No: Accessory Muscle Use, Rales, Stridor, Tachypnea, Wheezes ...Inspection: Yes: Other (well healed surgical scars ) ...Clubbing: No Gastrointestinal: Yes: Normal Bowel Sounds, Soft, Abdomen, Obese, Tenderness, Tenderness, Epigastrium, Other. No: Palpable Mass (PEG ), Pulsatile Mass Musculoskeletal: Yes: WNL Extremities: Yes: Cool Peripheral Pulses WNL: Yes Integumentary: Yes: WNL Neurological: Yes: Confusion Labs: CBC, BMP 04/30/18 07:08 04/30/18 07:08 ABG Results ABG pH 7.39 (7.35-7.45) 04/30/18 10:50 ABG pCO2 at Pt Temp 38.9 mmHg (35-45) 04/30/18 10:50 ABG pO2 at Pt Temp 104.0 mmHg (80-100) H 04/30/18 10:50 ABG HCO3 22.8 meq/L (22-26) 04/30/18 10:50 ABG O2 Sat (Measured) 98.2 % (90-98.9) 04/30/18 10:50 ABG O2 Content 12.0 % vol (15-22) L 04/30/18 10:50 ABG Base Excess -1.5 meq/l (-2-2) 04/30/18 10:50 Imaging - Results Chest X-ray: Report Reviewed, Image Reviewed Cat Scan: Report Reviewed, Image Reviewed Problem List - Problems (1) Shortness of breath Code(s): R06.02 - SHORTNESS OF BREATH (2) Altered mental status Code(s): R41.82 - ALTERED MENTAL STATUS, UNSPECIFIED (3) Atrial fibrillation Code(s): I48.91 - UNSPECIFIED ATRIAL FIBRILLATION (4) CAD (coronary artery disease) Code(s): I25.10 - ATHSCL HEART DISEASE OF [place] CORONARY ARTERY W/O ANG PCTRS (5) Diabetes mellitus Code(s): E11.9 - TYPE 2 DIABETES MELLITUS WITHOUT COMPLICATIONS (6) Hypertension Code(s): I10 - ESSENTIAL (PRIMARY) HYPERTENSION (7) PVD (peripheral vascular disease) Code(s): I73.9 - PERIPHERAL VASCULAR DISEASE, UNSPECIFIED (8) Respiratory failure, acute and chronic Code(s): J96.20 - ACUTE AND CHR RESP FAILURE, UNSP W HYPOXIA OR HYPERCAPNIA (9) Abdominal pain Code(s): R10.9 - UNSPECIFIED ABDOMINAL PAIN Qualifiers: Abdominal location: generalized Qualified Code(s): R10.84 - Generalized abdominal pain (10) Asthma Code(s): J45.909 - UNSPECIFIED ASTHMA, UNCOMPLICATED (11) COPD (chronic obstructive pulmonary disease) Code(s): J44.9 - CHRONIC OBSTRUCTIVE PULMONARY DISEASE, UNSPECIFIED Qualifiers: (12) Diabetes mellitus Code(s): E11.9 - TYPE 2 DIABETES MELLITUS WITHOUT COMPLICATIONS Qualifiers: Diabetes mellitus type: type 2 (13) H/O gastric bypass Code(s): Z98.89 - OTHER SPECIFIED POSTPROCEDURAL STATES * DO NOT USE * Assessment/Plan AC Mode of vent, 40% FiO2 and titrate as needed BD TX Medrol Directional suctioning Solo-culture ABX per ID May need bronchoscopy if the right atelectasis does not improve Chest PT if able Will follow closely Can monitor on 5S for now. Thank you. Dr Blankenship
[2018-04-30 16:16] LABS: EPI CELLS RARE /HPF (FEW); URINE BACTERIA MANY /hpf (NONE SEEN); URINE MUCUS FEW
[2018-04-30] MEDS ORDERED: VANCOMYCIN 500 MG VIAL (RESTRICTED TO ID ONLY) ONE (16:48)
[2018-04-30] MEDS: methylPREDNISolone NA SUCC 40 MG/1 ML VIAL IVPUSH SCH (18:55)
[2018-04-30] MEDS ORDERED: DEXTROSE 5%-WATER - 50 ML IVPB ONE (20:03)
[2018-04-30] MEDS ORDERED: PIPERACILLIN/TAZOBACTAM 2.25 GM VIAL IVPB ONE (20:03)
[2018-04-30 20:14] VITALS: BMI 35.6
[2018-05-01] MEDS ORDERED: ACETAMINOPHEN 1000 MG/100 ML VIAL (NON FORMULARY) IVPB ONE (01:15)
[2018-05-01] MEDS ORDERED: PIPERACILLIN/TAZOBACTAM 2.25 GM VIAL IVPB ONE ×3 (01:24→18:01)
[2018-05-01] MEDS ORDERED: DEXTROSE 5%-WATER - 50 ML IVPB ONE ×3 (01:24→18:01)
[2018-05-01] MEDS: PIPERACILLIN/TAZOB 2.25 GM 2.25 GM in DEXTROSE 5%-WATER - 50 ML IVPB SCH ×3 (02:00→18:08)
[2018-05-01] MEDS: methylPREDNISolone NA SUCC 40 MG/1 ML VIAL IVPUSH SCH ×3 (02:00→18:09)
[2018-05-01] MEDS: DEXTROSE 5%-NORMAL SALINE 1,000 ML IV SCH ×2 (04:48→11:15)
[2018-05-01 06:40] LABS: ARTERIAL BLD GAS O2 SATURATION 99.1 % (90-98.9); ARTERIAL BLOOD GAS BASE EXCESS -3.1 meq/l (-2-2); ARTERIAL BLOOD GAS PCO2 32.1 mmHg (35-45); ARTERIAL BLOOD GAS pH 7.42 (7.35-7.45)
[2018-05-01] MEDS: ALBUTEROL SO4 2.5/IPRATROPIUM 0.5 INH SOL 3 ML VIAL.NEB. NEB SCH ×2 (07:35→11:10)
[2018-05-01 08:20] LABS: HEMATOCRIT 26.1 % (32.4-45.2); HEMOGLOBIN 8.7 GM/dL (10.7-15.3); MCH 30.2 pg (25.7-33.7); MCHC 33.3 g/dl (32.0-36.0); MEAN CELL VOLUME 90.7 fl (80-96); PLATELET COUNT 277 K/MM3 (134-434); RBC 2.88 M/mm3 (3.60-5.2); RDW 18.1 % (11.6-15.6); WHITE BLOOD COUNT 13.3 K/mm3 (4.0-10.0)
[2018-05-01 09:01] LABS: ANION GAP 8 MMOL/L (8-16); BLOOD UREA NITROGEN 72 mg/dL (7-18); CHLORIDE 94 mmol/L (98-107); CO2 22 mmol/L (21-32); GLUCOSE,RANDOM 206 mg/dL (74-106); POTASSIUM 5.4 mmol/L (3.5-5.1); SODIUM 124 mmol/L (136-145)
[2018-05-01 09:19] LABS: N-TERMINAL BNP 71773.6 pg/ml (5-125)
[2018-05-01] MEDS ORDERED: VANCOMYCIN 750 MG in DEXTROSE 5%-WATER - 250 ML IVPB ONE (12:00)
--- NOTE | 2018-05-01 12:29 | PN ---
Progress Note (short form) - Note Progress Note: PULMONARY Vented, awake. Low grade temps. AM CXR with improving right sided atelectasis. Vital Signs Period Temp Pulse Resp BP Sys/Corrigan Pulse Ox Last 24 Hr 97.9 F-100 F 70-91 12-27 134-152/63-70 100-100 Gen: vented, awake Heart: RRR Lung: scattered rhonchi Abd: soft, nontender Ext: + edema, +gangrene CBC, BMP 05/01/18 07:00 05/01/18 07:00 ABG Results ABG pH 7.42 (7.35-7.45) 05/01/18 06:30 ABG pCO2 at Pt Temp 32.1 mmHg (35-45) L 05/01/18 06:30 ABG pO2 at Pt Temp 142.0 mmHg (80-100) H D 05/01/18 06:30 ABG HCO3 20.4 meq/L (22-26) L 05/01/18 06:30 ABG O2 Sat (Measured) 99.1 % (90-98.9) H 05/01/18 06:30 ABG O2 Content 11.8 % vol (15-22) L 05/01/18 06:30 ABG Base Excess -3.1 meq/l (-2-2) L 05/01/18 06:30 Active Medications Albuterol/Ipratropium (Duoneb -) 1 amp NEB RQID JOE Last Admin: 05/01/18 11:10 Dose: 1 amp Piperacillin Sod/Tazobactam (Sod 2.25 gm/ Dextrose) 50 mls @ 100 mls/hr IVPB Q8H-IV JOE; Protocol Last Admin: 05/01/18 11:14 Dose: 100 mls/hr Dextrose/Sodium Chloride (D5-Ns -) 1,000 mls @ 100 mls/hr IV ASDIR JOE Last Admin: 05/01/18 11:15 Dose: Not Given Vancomycin HCl 750 mg/ (Dextrose) 250 mls @ 250 mls/hr IVPB ONCE ONE; Protocol Stop: 05/01/18 12:59 Methylprednisolone Sodium Succinate (Solu-Medrol -) 60 mg IVPUSH Q8H-IV JOE Last Admin: 05/01/18 11:15 Dose: 60 mg A/P Chronic Respiratory Failure s/p Tracheostomy Pneumonia vs Atelectasis Staph Bacteremia Sacral Ulcers Sepsis CKD Hyponatremia Volume Overload - continue antibiotics per ID - f/u cultures - chest PT, pulmonary toilet - will add mucomyst to inhaled bronchodilators - short course of medrol, can likely d/c in AM - monitor CXR, may need bronchoscopy if CXR does not improve further - enteral feeds - DVT prophylaxis
[2018-05-01 12:33] LABS: CALCIUM 6.9 mg/dL (8.5-10.1)
--- NOTE | 2018-05-01 12:46 | PN ---
Progress Note, Physician History of Present Illness: Pt seen and examined at bedside. She is more awake and alert. She is tolerating tube feeds. - Current Medication List Current Medications: Active Medications Acetylcysteine (Mucomyst 20 Oral / Inh Use Only*) 200 mg NEB RQID JOE Albuterol Sulfate (Ventolin 0.083% Nebulizer Soln -) 1 amp NEB RQID JOE Piperacillin Sod/Tazobactam (Sod 2.25 gm/ Dextrose) 50 mls @ 100 mls/hr IVPB Q8H-IV JOE; Protocol Last Admin: 05/01/18 11:14 Dose: 100 mls/hr Dextrose/Sodium Chloride (D5-Ns -) 1,000 mls @ 100 mls/hr IV ASDIR JOE Last Admin: 05/01/18 11:15 Dose: Not Given Vancomycin HCl 750 mg/ (Dextrose) 250 mls @ 250 mls/hr IVPB ONCE ONE; Protocol Stop: 05/01/18 12:59 Methylprednisolone Sodium Succinate (Solu-Medrol -) 60 mg IVPUSH Q8H-IV JOE Last Admin: 05/01/18 11:15 Dose: 60 mg - Objective Vital Signs: Vital Signs Temperature 98.6 F 05/01/18 09:00 Pulse Rate 70 05/01/18 09:00 Respiratory Rate 20 05/01/18 10:59 Blood Pressure 134/70 05/01/18 09:00 O2 Sat by Pulse Oximetry (%) 100 04/30/18 21:00 Constitutional: Yes: Calm Eyes: Yes: Conjunctiva Clear Neck: Yes: Other (trache) Cardiovascular: Yes: S1, S2 Respiratory: Yes: On Venti-Mask Gastrointestinal: Yes: Soft, Other (peg) Genitourinary: Yes: Montoya Present Musculoskeletal: Yes: Muscle Weakness Edema: Yes (anasarca) Edema: LUE: 3+, RUE: 3+, LLE: 3+, RLE: 3+ Neurological: Yes: Oriented Psychiatric: Yes: Oriented Labs: CBC, BMP 05/01/18 07:00 05/01/18 07:00 INR, PTT INR 1.33 (0.83-1.09) H 04/29/18 17:30 - ....Imaging Chest X-ray: Report Reviewed Problem List - Problems (1) Altered mental status Code(s): R41.82 - ALTERED MENTAL STATUS, UNSPECIFIED (2) Atrial fibrillation Code(s): I48.91 - UNSPECIFIED ATRIAL FIBRILLATION (3) CAD (coronary artery disease) Code(s): I25.10 - ATHSCL HEART DISEASE OF [place] CORONARY ARTERY W/O ANG PCTRS (4) CKD (chronic kidney disease) Code(s): N18.9 - CHRONIC KIDNEY DISEASE, UNSPECIFIED (5) Diabetes mellitus Code(s): E11.9 - TYPE 2 DIABETES MELLITUS WITHOUT COMPLICATIONS (6) PVD (peripheral vascular disease) Code(s): I73.9 - PERIPHERAL VASCULAR DISEASE, UNSPECIFIED (7) Respiratory failure, acute and chronic Code(s): J96.20 - ACUTE AND CHR RESP FAILURE, UNSP W HYPOXIA OR HYPERCAPNIA (8) COPD (chronic obstructive pulmonary disease) Code(s): J44.9 - CHRONIC OBSTRUCTIVE PULMONARY DISEASE, UNSPECIFIED Qualifiers: Assessment/Plan Current Medications Generic Name Dose Route Start Last Admin Trade Name Freq PRN Reason Stop Dose Admin Acetylcysteine 200 mg 05/01/18 16:00 Mucomyst 20 Oral / Inh Use Only* NEB RQID JOE Albuterol Sulfate 1 amp 05/01/18 16:00 Ventolin 0.083% Nebulizer Soln - NEB RQID JOE Piperacillin Sod/Tazobactam 50 mls @ 100 mls/hr 04/30/18 10:00 05/01/18 11:14 Sod 2.25 gm/ Dextrose IVPB 100 mls/hr Q8H-IV JOE Administration Protocol Dextrose/Sodium Chloride 1,000 mls @ 100 mls/hr 04/30/18 10:15 05/01/18 11:15 D5-Ns - IV Not Given ASDIR JOE Vancomycin HCl 750 mg/ 250 mls @ 250 mls/hr 05/01/18 12:00 Dextrose IVPB 05/01/18 12:59 ONCE ONE Protocol Methylprednisolone Sodium Succinate 60 mg 04/30/18 18:00 05/01/18 11:15 Solu-Medrol - IVPUSH 60 mg Q8H-IV JOE Administration Laboratory Tests 04/30/18 04/30/18 05/01/18 15:09 15:09 07:00 Sodium 124 L Potassium 5.4 H Random Glucose 206 H Urine Osmolality 401 Ur Random Sodium 66 Laboratory Tests 05/01/18 07:00 B-Natriuretic Peptide 89218.6 H Impression 1. HOPE 2. CKD with unclear baseline 3. sepsis 4. chronic respiratory failure 5. peripheral vascular disease 6. 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 pt with peg tube 8. PNA 9. altered mental status 10. htn 11. DM 12. a-fib 13. hematuria 14. hyponatremia 15. hypoglycemia 16. severe malnutrition 17. hyperkalemia Plan - d/c fluids - pt tolerating feeds - will give a dose of lasix for overload along with albumin - lasix should help with potassium - change feeds to nepro - discussed with pulmonary team - dietary eval as albumin is 1.1 - will workup renal failure and hyponatremia - will follow Dr Lira
[2018-05-01] MEDS ORDERED: FUROSEMIDE 40 MG/4 ML INJECTABLE VIAL IVPUSH ONE (12:47)
[2018-05-01] MEDS ORDERED: ALBUMIN HUMAN 25% 12.5 GM/50 ML VIAL IVPB ONE (12:47)
[2018-05-01] MEDS ORDERED: PT OWN MED DRAWER 7, Y5N ONE (13:13)
[2018-05-01] MEDS: ACETYLCYSTEINE 20% 200MG/ML 4 ML VIAL *FOR ORAL / INH USE ONLY NEB SCH ×2 (15:18→21:10)
[2018-05-01] MEDS: ALBUTEROL SO4 0.083% IH SOL 2.5 MG/3 ML VIAL.NEB. NEB SCH ×2 (15:18→21:10)
[2018-05-01] MEDS: METOPROLOL TARTRATE 50 MG TABLET (FP) PEG SCH ×2 (15:27→22:46)
[2018-05-01] MEDS: ACETAMINOPHEN 1000 MG/100 ML VIAL (NON FORMULARY) IVPB PRN (15:27)
--- NOTE | 2018-05-01 16:08 | PN ---
Progress Note (short form) - Note Progress Note: alert trach to vent family reports she was at [facility] for less then a week she was transferred there from [facility] thy were told she has myeloma "bone cancer" Vital Signs Period Temp Pulse Resp BP Sys/Corrigan Pulse Ox Last 24 Hr 97.9 F-100 F 70-91 12-26 134-157/62-70 100-100 cor-rrr lungs decreased bs on the right abd soft, +subcutaneous edema ext multiple dry necrotic digits and toes CBC, BMP 05/01/18 07:00 05/01/18 07:00 Microbiology 05/01/18 07:00 Sputum - Endotrachea Suction/Ventilator Gram Stain - Final 04/30/18 15:09 Back Gram Stain - Final 04/30/18 15:09 Back Wound Culture - Preliminary Lactose Fermenting Neg Bacilli Non Lactose Fermenting Gnb Staphylococcus Latex Coag Pos Group D Strep Or Entero Coccus Pending Organism 04/29/18 17:30 Urine - Urine Clean Catch Urine Culture - Preliminary Lactose Fermenting Neg Bacilli Presumptive Ps Aeruginosa Group D Strep Or Entero Coccus 04/29/18 17:30 Blood - Peripheral Venous Blood Culture - Preliminary Presumptive Mssa (Pbp2a Neg) 04/29/18 17:30 Blood - Peripheral Venous Blood Culture - Preliminary Presumptive Mssa (Pbp2a Neg) 04/30/18 10:38 Urine For Antigen Detection Legionella Antigen - Final 04/30/18 10:38 Urine For Antigen Detection Streptococcus pneumoniae Antigen (M - Final a/p sepsis bacteremia-staph await ID and sensi- ?skin source pneumonia/atelectasis-improved samuel/ckd ?myeloma-labs pending overall prognosis poor vanco/zosyn to adjust antibotics in am when blood culture results are back
[2018-05-01 17:41] LABS: RATIO URIN PROTEIN/URIN CREAT 10.72 MG/DL
--- NOTE | 2018-05-01 18:35 | PN ---
Progress Note (short form) - Note Progress Note: vented awake able to nod to questions appropriately family reports she was at [facility] for less then a week she was transferred there from [facility] they were told she has myeloma "bone cancer" Vital Signs Period Temp Pulse Resp BP Sys/Corrigan Pulse Ox Last 24 Hr 98.5 F-100 F 70-91 12-26 134-157/62-70 100-100 vented - trach awake Heart: RRR Lung: scattered rhonchi Abd: soft, nontender Ext: + edema, +gangrene anasarca CBC, BMP 05/01/18 07:00 05/01/18 07:00 Microbiology 05/01/18 07:00 Sputum - Endotrachea Suction/Ventilator Gram Stain - Final 04/30/18 15:09 Back Gram Stain - Final 04/30/18 15:09 Back Wound Culture - Preliminary Lactose Fermenting Neg Bacilli Non Lactose Fermenting Gnb Staphylococcus Latex Coag Pos Group D Strep Or Entero Coccus Pending Organism 04/29/18 17:30 Urine - Urine Clean Catch Urine Culture - Preliminary Lactose Fermenting Neg Bacilli Presumptive Ps Aeruginosa Group D Strep Or Entero Coccus 04/29/18 17:30 Blood - Peripheral Venous Blood Culture - Preliminary Presumptive Mssa (Pbp2a Neg) 04/29/18 17:30 Blood - Peripheral Venous Blood Culture - Preliminary Presumptive Mssa (Pbp2a Neg) 04/30/18 10:38 Urine For Antigen Detection Legionella Antigen - Final 04/30/18 10:38 Urine For Antigen Detection Streptococcus pneumoniae Antigen (M - Final Active Medications Acetaminophen (Ofirmev Injection -) 1,000 mg IVPB Q6H PRN PRN Reason: PAIN SCALE 6-10 Last Admin: 05/01/18 15:27 Dose: 1,000 mg Acetylcysteine (Mucomyst 20 Oral / Inh Use Only*) 200 mg NEB RQID JOE Last Admin: 05/01/18 15:18 Dose: 200 mg Albuterol Sulfate (Ventolin 0.083% Nebulizer Soln -) 1 amp NEB RQID JOE Last Admin: 05/01/18 15:18 Dose: 1 amp Amino Acids (Prosource No Carb Liquid Pkt) 30 ml PEG BID [facility] Aspirin (Asa -) 81 mg PEG DAILY [facility] Clopidogrel Bisulfate (Plavix -) 75 mg PEG DAILY [facility] Digoxin (Lanoxin -) 0.125 mg PEG MoWeFr [facility] Piperacillin Sod/Tazobactam (Sod 2.25 gm/ Dextrose) 50 mls @ 100 mls/hr IVPB Q8H-IV JOE; Protocol Last Admin: 05/01/18 18:08 Dose: 100 mls/hr Lidocaine HCl (Xylocaine 5% Top. Ointment) 1 applic TP BID [facility] Lorazepam (Ativan Injection -) 1 mg IVPUSH HS [facility] Methylprednisolone Sodium Succinate (Solu-Medrol -) 60 mg IVPUSH Q8H-IV JOE Last Admin: 05/01/18 18:09 Dose: 60 mg Metoprolol Tartrate (Lopressor -) 50 mg PEG TID [facility] Last Admin: 05/01/18 15:27 Dose: 50 mg Ranitidine HCl (Zantac Oral Solution -) 150 mg PEG BID [facility] Silver Sulfadiazine (Silvadene -) 1 applic TP BID [facility] assmt #Sepsis await c/s emepric abx Vanco given in ER X1 will hold further dose in view of renal status ID consult Dr Aiken #resp failure acute on chronic - patient with trache - hx unclear Ac12/ 40 FiO2 CXR opacified right hemithorax PNA / atelectasis / fluid overload Pulmonary consult # HOPE CKD baseline unknown / proteinuria / hematuria appreciate renal consult #PVD gangrene toes / fingers vascular consult wound care silvadene / lidocaine #DM hx multiple episodes of hypoglycemia will monitor BS no coverage and no hypoglycemics #HTN monitor Bp and treat as needed # severe malnutrition albumin 1.[address] start feeding - nephro AND add protein supplement HOB elevated NH called - patient has been at [place] for approx one week and limited information obtained . Problem List - Problems (1) Respiratory failure, acute and chronic Code(s): J96.20 - ACUTE AND CHR RESP FAILURE, UNSP W HYPOXIA OR HYPERCAPNIA (2) Altered mental status Code(s): R41.82 - ALTERED MENTAL STATUS, UNSPECIFIED (3) CKD (chronic kidney disease) Code(s): N18.9 - CHRONIC KIDNEY DISEASE, UNSPECIFIED (4) PVD (peripheral vascular disease) Code(s): I73.9 - PERIPHERAL VASCULAR DISEASE, UNSPECIFIED (5) CAD (coronary artery disease) Code(s): I25.10 - ATHSCL HEART DISEASE OF [place] CORONARY ARTERY W/O ANG PCTRS (6) Atrial fibrillation Code(s): I48.91 - UNSPECIFIED ATRIAL FIBRILLATION (7) Hypertension Code(s): I10 - ESSENTIAL (PRIMARY) HYPERTENSION (8) Diabetes mellitus Code(s): E11.9 - TYPE 2 DIABETES MELLITUS WITHOUT COMPLICATIONS
[2018-05-01] MEDS ORDERED: SILVER SULFADIAZINE 1% TOP CREAM 50 GM JAR TP SCH (22:00)
[2018-05-01] MEDS: LIDOCAINE HCL 5% TOP OINTMENT 50 GM TUBE TP SCH (22:46)
[2018-05-01] MEDS: LORazepam 2 MG/ML SDV VIAL IVPUSH SCH (22:46)
[2018-05-01] MEDS: AMINO ACIDS/PROTEIN HYDROLYS 30 ML LIQUID.PKT PEG SCH (22:46)
[2018-05-01] MEDS: RANITIDINE HCL 150 MG/10 ML UNIT-DOSE PEG SCH (22:46)
[2018-05-02] MEDS ORDERED: PIPERACILLIN/TAZOBACTAM 2.25 GM VIAL IVPB ONE ×3 (02:24→17:12)
[2018-05-02] MEDS ORDERED: DEXTROSE 5%-WATER - 50 ML IVPB ONE ×2 (02:24→11:00)
[2018-05-02] MEDS: methylPREDNISolone NA SUCC 40 MG/1 ML VIAL IVPUSH SCH ×3 (02:33→17:40)
[2018-05-02] MEDS: PIPERACILLIN/TAZOB 2.25 GM 2.25 GM in DEXTROSE 5%-WATER - 50 ML IVPB SCH ×2 (02:33→11:28)
[2018-05-02] MEDS: METOPROLOL TARTRATE 50 MG TABLET (FP) PEG SCH ×3 (06:28→22:35)
[2018-05-02 07:08] LABS: ARTERIAL BLD GAS O2 SATURATION 98.5 % (90-98.9); ARTERIAL BLOOD GAS BASE EXCESS -5.9 meq/l (-2-2); ARTERIAL BLOOD GAS PCO2 41.4 mmHg (35-45)
[2018-05-02 07:09] LABS: ALLENS TEST POSITIVE
--- NOTE | 2018-05-02 08:07 | PN ---
Progress Note (short form) - Note Progress Note: Vascular Surgery: Called to see patient for multiple wound evaluations. She came to the ER from [facility] with SOB and AMS. 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 Hands: b/l radial pulses, +2. Left hand dry gangrene to tip of finger to nailbed (circumfrential) no drainage or erythema. Right hand: +2 radial pulse with second/third dry gangrenous fingers to pip joint. No drainage or erythema. LE: bilateral toes on left and right feet with dry gangrene, circumferential and extending to the base of the MCP. No drainage or erythema. +2 DP pulses b/ l. edema to b/l feet. Left ankle small ulcer/eschar on lateral mallellous. 1x1cm, applied optifoam. Bony promience over the left fibula head. No ulcers/erythema to skin, applied optifoam. CBC, BMP 05/02/18 06:30 05/02/18 06:30 A/p: 58 yo female with b/l dry gangrene to finger and feet. Sacral ulcer, stage 4 with minimal necrotic tissue. -Reposition every two hours while in bed -Air mattress recommended -Use drawsheets and Trendelenburg when repositioning to reduce friction and shear -Manage incontinence via timely cleansing, use of appropriate incontinence disposables and use of barrier ointment to intact skin -Ensure adequate hydration/nutrition, supplementation per primary team -Ensure off-loading to all bony areas (heels, ankles, hips and tailbone) with Allevyn/Optifoam -Clean open wounds with normal saline and apply (insert ointment/dressing) No surgical intervention needed, wound care orders written for betadine to dry gangrene. Optifoam to bony prominence areas. Santyl to sacrum with optifoam D/w Dr. renteria
[2018-05-02 08:08] LABS: BASO % 0.2 % (0-2.0); HEMATOCRIT 24.3 % (32.4-45.2); HEMOGLOBIN 8.3 GM/dL (10.7-15.3); LYMPH % 1.1 % (8-40); MCH 30.7 pg (25.7-33.7); MCHC 33.9 g/dl (32.0-36.0); MEAN CELL VOLUME 90.6 fl (80-96); MEAN PLT VOLUME 6.9 fl (7.5-11.1); MONO % 1.8 % (3.8-10.2); NEUT % 96.9 % (42.8-82.8); PLATELET COUNT 308 K/MM3 (134-434); RBC 2.69 M/mm3 (3.60-5.2); RDW 18.2 % (11.6-15.6); WHITE BLOOD COUNT 16.8 K/mm3 (4.0-10.0)
[2018-05-02] MEDS: ACETYLCYSTEINE 20% 200MG/ML 4 ML VIAL *FOR ORAL / INH USE ONLY NEB SCH ×4 (08:30→20:39)
[2018-05-02] MEDS: ALBUTEROL SO4 0.083% IH SOL 2.5 MG/3 ML VIAL.NEB. NEB SCH ×4 (08:30→20:39)
[2018-05-02 08:35] LABS: ALBUMIN 1.1 g/dl (3.4-5.0); ALK PHOS 153 U/L (45-117); ANION GAP 10 MMOL/L (8-16); BILIRUBIN,TOTAL 0.3 mg/dL (0.2-1); BLOOD UREA NITROGEN 85 mg/dL (7-18); CALCIUM 7.2 mg/dL (8.5-10.1); CHLORIDE 92 mmol/L (98-107); CO2 22 mmol/L (21-32); CREATININE 3.2 mg/dL (0.55-1.3); GLUCOSE,RANDOM 240 mg/dL (74-106); POTASSIUM 5.3 mmol/L (3.5-5.1); SGOT/AST 5 U/L (15-37); SGPT/ALT < 6 U/L (13-61); SODIUM 123 mmol/L (136-145); TOT PROT 5.2 g/dl (6.4-8.2)
[2018-05-02] MEDS ORDERED: PT OWN MED DRAWER 7, Y5N ONE ×3 (10:59→18:29)
[2018-05-02] MEDS: CLOPIDOGREL BISULFATE 75 MG TABLET (FP) PEG SCH (11:28)
[2018-05-02] MEDS: RANITIDINE HCL 150 MG/10 ML UNIT-DOSE PEG SCH ×2 (11:29→22:35)
[2018-05-02] MEDS: ASPIRIN 81 MG CHEWABLE TABLETS PEG SCH (11:29)
[2018-05-02] MEDS: AMINO ACIDS/PROTEIN HYDROLYS 30 ML LIQUID.PKT PEG SCH ×2 (11:29→22:35)
[2018-05-02] MEDS ORDERED: FUROSEMIDE 40 MG/4 ML INJECTABLE VIAL IVPUSH ONE ×2 (11:45→15:00)
[2018-05-02] MEDS ORDERED: ALBUMIN HUMAN 25% 12.5 GM/50 ML VIAL IVPB ONE (11:45)
[2018-05-02] MEDS: COLLAGENASE CLOSTRIDIUM HIST. 30 GRAMS TUBE TP SCH (11:48)
[2018-05-02] MEDS: LIDOCAINE HCL 5% TOP OINTMENT 50 GM TUBE TP SCH ×2 (11:49→22:35)
[2018-05-02] MEDS: DIGOXIN 0.125 MG TABLET (FP) PEG SCH (12:38)
[2018-05-02 12:44] LABS: ANISOCYTOSIS 1+
[2018-05-02 12:46] LABS: OVALOCYTE 1+; PLATELET ESTIMATE ADEQUATE
[2018-05-02] MEDS ORDERED: SODIUM CHLORIDE 1 GM TABLET GT ONE (13:35)
--- NOTE | 2018-05-02 13:35 | PN ---
Progress Note, Physician History of Present Illness: Pt seen and examined at bedside. She is awake and nods to questions. - Current Medication List Current Medications: Active Medications Acetaminophen (Ofirmev Injection -) 1,000 mg IVPB Q6H PRN PRN Reason: PAIN SCALE 6-10 Last Admin: 05/01/18 15:27 Dose: 1,000 mg Acetylcysteine (Mucomyst 20 Oral / Inh Use Only*) 200 mg NEB RQID [facility] Last Admin: 05/02/18 12:14 Dose: 200 mg Albuterol Sulfate (Ventolin 0.083% Nebulizer Soln -) 1 amp NEB RQID [facility] Last Admin: 05/02/18 12:14 Dose: 1 amp Amino Acids (Prosource No Carb Liquid Pkt) 30 ml PEG BID [facility] Last Admin: 05/02/18 11:29 Dose: 30 ml Aspirin (Asa -) 81 mg PEG DAILY [facility] Last Admin: 05/02/18 11:29 Dose: 81 mg Clopidogrel Bisulfate (Plavix -) 75 mg PEG DAILY [facility] Last Admin: 05/02/18 11:28 Dose: 75 mg Collagenase (Santyl -) 1 applic TP DAILY [facility]; Protocol Last Admin: 05/02/18 11:48 Dose: 1 applic Digoxin (Lanoxin -) 0.125 mg PEG MoWeFr [facility] Piperacillin Sod/Tazobactam (Sod 2.25 gm/ Dextrose) 50 mls @ 100 mls/hr IVPB Q8H-IV JOE; Protocol Last Admin: 05/02/18 11:28 Dose: 100 mls/hr Lidocaine HCl (Xylocaine 5% Top. Ointment) 1 applic TP BID [facility] Last Admin: 05/02/18 11:49 Dose: Not Given Lorazepam (Ativan Injection -) 1 mg IVPUSH HS [facility] Last Admin: 05/01/18 22:46 Dose: 1 mg Methylprednisolone Sodium Succinate (Solu-Medrol -) 60 mg IVPUSH Q8H-IV [facility] Last Admin: 05/02/18 11:28 Dose: 60 mg Metoprolol Tartrate (Lopressor -) 50 mg PEG TID [facility] Last Admin: 05/02/18 06:28 Dose: 50 mg Ranitidine HCl (Zantac Oral Solution -) 150 mg PEG BID [facility] Last Admin: 05/02/18 11:29 Dose: 150 mg - Objective Vital Signs: Vital Signs Temperature 99 F 02/13/19 08:00 Pulse Rate 89 05/02/18 08:00 Respiratory Rate 17 05/02/18 11:58 Blood Pressure 136/82 05/02/18 08:00 O2 Sat by Pulse Oximetry (%) 100 05/01/18 22:33 Constitutional: Yes: Calm Eyes: Yes: Conjunctiva Clear Neck: Yes: Other (trache) Cardiovascular: Yes: S1, S2 Gastrointestinal: Yes: Soft, Other (peg) Genitourinary: Yes: Montoya Present Musculoskeletal: Yes: Muscle Weakness Edema: Yes Edema: LUE: 2+, RUE: 2+, LLE: 2+, RLE: 2+ Neurological: Yes: Oriented Labs: CBC, BMP 05/02/18 06:30 05/02/18 06:30 INR, PTT INR 1.33 (0.83-1.09) H 04/29/18 17:30 Problem List - Problems (1) Altered mental status Code(s): R41.82 - ALTERED MENTAL STATUS, UNSPECIFIED (2) Atrial fibrillation Code(s): I48.91 - UNSPECIFIED ATRIAL FIBRILLATION (3) CAD (coronary artery disease) Code(s): I25.10 - ATHSCL HEART DISEASE OF [place] CORONARY ARTERY W/O ANG PCTRS (4) CKD (chronic kidney disease) Code(s): N18.9 - CHRONIC KIDNEY DISEASE, UNSPECIFIED (5) Diabetes mellitus Code(s): E11.9 - TYPE 2 DIABETES MELLITUS WITHOUT COMPLICATIONS (6) PVD (peripheral vascular disease) Code(s): I73.9 - PERIPHERAL VASCULAR DISEASE, UNSPECIFIED (7) Respiratory failure, acute and chronic Code(s): J96.20 - ACUTE AND CHR RESP FAILURE, UNSP W HYPOXIA OR HYPERCAPNIA (8) COPD (chronic obstructive pulmonary disease) Code(s): J44.9 - CHRONIC OBSTRUCTIVE PULMONARY DISEASE, UNSPECIFIED Qualifiers: Assessment/Plan Current Medications Generic Name Dose Route Start Last Admin Trade Name Freq PRN Reason Stop Dose Admin Acetaminophen 1,000 mg 05/01/18 15:14 05/01/18 15:27 Ofirmev Injection - IVPB 1,000 mg Q6H PRN Administration PAIN SCALE 6-10 Acetylcysteine 200 mg 05/01/18 16:00 05/02/18 12:14 Mucomyst 20 Oral / Inh Use Only* NEB 200 mg RQID JOE Administration Albuterol Sulfate 1 amp 05/01/18 16:00 05/02/18 12:14 Ventolin 0.083% Nebulizer Soln - NEB 1 amp RQID JOE Administration Amino Acids 30 ml 05/01/18 22:00 05/02/18 11:29 Prosource No Carb Liquid Pkt PEG 30 ml BID JOE Administration Aspirin 81 mg 05/02/18 10:00 05/02/18 11:29 Asa - PEG 81 mg DAILY JOE Administration Clopidogrel Bisulfate 75 mg 05/02/18 10:00 05/02/18 11:28 Plavix - PEG 75 mg DAILY JOE Administration Collagenase 1 applic 05/02/18 10:00 05/02/18 11:48 Santyl - TP 1 applic DAILY JOE Administration Protocol Digoxin 0.125 mg 05/02/18 10:00 Lanoxin - PEG MoWeFr JOE Piperacillin Sod/Tazobactam 50 mls @ 100 mls/hr 04/30/18 10:00 05/02/18 11:28 Sod 2.25 gm/ Dextrose IVPB 100 mls/hr Q8H-IV JOE Administration Protocol Lidocaine HCl 1 applic 05/01/18 22:00 05/02/18 11:49 Xylocaine 5% Top. Ointment TP Not Given BID JOE Lorazepam 1 mg 05/01/18 22:00 05/01/18 22:46 Ativan Injection - IVPUSH 1 mg HS JOE Administration Methylprednisolone Sodium Succinate 60 mg 04/30/18 18:00 05/02/18 11:28 Solu-Medrol - IVPUSH 60 mg Q8H-IV JOE Administration Metoprolol Tartrate 50 mg 05/01/18 15:15 05/02/18 06:28 Lopressor - PEG 50 mg TID JOE Administration Ranitidine HCl 150 mg 05/01/18 22:00 05/02/18 11:29 Zantac Oral Solution - PEG 150 mg BID JOE Administration Laboratory Tests 05/01/18 05/01/18 05/01/18 07:00 14:30 15:30 Protein/Creatinin Ratio 10.720 LUZ MARIA M-Fabien Pending CRISTEL Screen Pending c-ANCA Pending Proteinase 3 (PR3) Pending p-ANCA Pending Atypical p-ANCA Pending Myeloperoxidase Ab Pending Double Strand DNA Ab Pending Glomerular Base Memb Ab Pending Hepatitis A Ab Total Pending Hep Bs Antigen Pending Hep Bs Antibody Pending Hep B Core Total Ab Pending HCV Quantitation Pending Impression 1. HOPE 2. CKD with unclear baseline 3. sepsis 4. chronic respiratory failure 5. peripheral vascular disease 6. 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 pt with peg tube 8. PNA 9. altered mental status 10. htn 11. DM 12. a-fib 13. hematuria 14. hyponatremia 15. hypoglycemia 16. severe malnutrition 17. hyperkalemia 18. nephrotic range proteinuria Plan - cont with lasix - renal function worsening - may need HD if she does not improved - discussed care at length with medical team - renal workup in progress - pt on steroids IV - cont feeds - wound care to extremities as she has gangrene - prognosis is guarded Dr Lira
--- NOTE | 2018-05-02 15:23 | PN ---
Progress Note, Physician History of Present Illness: PULMONARY SLEEPY ON VENT SUPPORT,-RESP DISTRESS - Current Medication List Current Medications: Active Medications Acetaminophen (Ofirmev Injection -) 1,000 mg IVPB Q6H PRN PRN Reason: PAIN SCALE 6-10 Last Admin: 05/01/18 15:27 Dose: 1,000 mg Acetylcysteine (Mucomyst 20 Oral / Inh Use Only*) 200 mg NEB RQID JOE Last Admin: 05/02/18 12:14 Dose: 200 mg Albuterol Sulfate (Ventolin 0.083% Nebulizer Soln -) 1 amp NEB RQID [facility] Last Admin: 05/02/18 12:14 Dose: 1 amp Amino Acids (Prosource No Carb Liquid Pkt) 30 ml PEG BID [facility] Last Admin: 05/02/18 11:29 Dose: 30 ml Aspirin (Asa -) 81 mg PEG DAILY [facility] Last Admin: 05/02/18 11:29 Dose: 81 mg Clopidogrel Bisulfate (Plavix -) 75 mg PEG DAILY [facility] Last Admin: 05/02/18 11:28 Dose: 75 mg Collagenase (Santyl -) 1 applic TP DAILY [facility]; Protocol Last Admin: 05/02/18 11:48 Dose: 1 applic Digoxin (Lanoxin -) 0.125 mg PEG MoWeFr [facility] Piperacillin Sod/Tazobactam (Sod 2.25 gm/ Dextrose) 50 mls @ 100 mls/hr IVPB Q8H-IV JOE; Protocol Last Admin: 05/02/18 11:28 Dose: 100 mls/hr Lidocaine HCl (Xylocaine 5% Top. Ointment) 1 applic TP BID [facility] Last Admin: 05/02/18 11:49 Dose: Not Given Lorazepam (Ativan Injection -) 1 mg IVPUSH HS [facility] Last Admin: 05/01/18 22:46 Dose: 1 mg Methylprednisolone Sodium Succinate (Solu-Medrol -) 60 mg IVPUSH Q8H-IV [facility] Last Admin: 05/02/18 11:28 Dose: 60 mg Metoprolol Tartrate (Lopressor -) 50 mg PEG TID [facility] Last Admin: 05/02/18 06:28 Dose: 50 mg Ranitidine HCl (Zantac Oral Solution -) 150 mg PEG BID [facility] Last Admin: 05/02/18 11:29 Dose: 150 mg - Objective Vital Signs: Vital Signs Temperature 98.3 F 05/02/18 14:12 Pulse Rate 72 05/02/18 14:12 Respiratory Rate 20 05/02/18 14:12 Blood Pressure 142/72 05/02/18 14:12 O2 Sat by Pulse Oximetry (%) 100 05/01/18 22:33 Constitutional: Yes: Well Nourished, Other (SLEEPY) Eyes: Yes: WNL HENT: Yes: WNL Neck: Yes: Supple (TRACH) Cardiovascular: Yes: Regular Rate and Rhythm, S1, S2 Respiratory: Yes: Rhonchi Gastrointestinal: Yes: Normal Bowel Sounds, Soft Extremities: Yes: WNL Edema: No Labs: CBC, BMP 05/02/18 06:30 05/02/18 06:30 INR, PTT INR 1.33 (0.83-1.09) H 04/29/18 17:30 - ....Imaging Chest X-ray: Image Reviewed Problem List - Problems (1) CKD (chronic kidney disease) Code(s): N18.9 - CHRONIC KIDNEY DISEASE, UNSPECIFIED (2) Diabetes mellitus Code(s): E11.9 - TYPE 2 DIABETES MELLITUS WITHOUT COMPLICATIONS (3) Hypertension Code(s): I10 - ESSENTIAL (PRIMARY) HYPERTENSION (4) Respiratory failure, acute and chronic Code(s): J96.20 - ACUTE AND CHR RESP FAILURE, UNSP W HYPOXIA OR HYPERCAPNIA (5) COPD (chronic obstructive pulmonary disease) Code(s): J44.9 - CHRONIC OBSTRUCTIVE PULMONARY DISEASE, UNSPECIFIED Qualifiers: Assessment/Plan A/P Chronic Respiratory Failure s/p Tracheostomy Atelectasis improving Pneumonia Staph Bacteremia Sacral Ulcers Sepsis CKD Hyponatremia Volume Overload - antibiotics per ID - chest PT, pulmonary toilet - continue mucomyst and inhaled bronchodilators - medrol - monitor CXR, may need bronchoscopy if CXR does not improve further - enteral feeds - DVT prophylaxis DR ARROYO
--- NOTE | 2018-05-02 16:14 | PN ---
Progress Note (short form) - Note Progress Note: alert trach to vent Vital Signs Period Temp Pulse Resp BP Sys/Corrigan Pulse Ox Last 24 Hr 98.1 F-99 F 72-89 17-24 136-146/72-82 98-100 cor-rrr lungs decreased bs at right base abd soft, +GT +flank edema ext trace edema necrotic dry gangrene of toes/fingers CBC, BMP 05/02/18 06:30 05/02/18 06:30 Microbiology 04/30/18 15:09 Back Gram Stain - Final 04/30/18 15:09 Back Wound Culture - Preliminary Lactose Fermenting Neg Bacilli Non Lactose Fermenting Gnb Mr S Aureus Vr Ec Faecalis 04/29/18 17:30 Blood - Peripheral Venous Blood Culture - Final Staphylococcus Aureus 04/29/18 17:30 Urine - Urine Clean Catch Urine Culture - Preliminary Lactose Fermenting Neg Bacilli Pseudomonas Aeruginosa Group D Strep Or Entero Coccus 04/29/18 17:30 Blood - Peripheral Venous Blood Culture - Final Staphylococcus Aureus 05/01/18 07:00 Sputum - Endotrachea Suction/Ventilator Gram Stain - Final 05/01/18 07:00 Sputum - Endotrachea Suction/Ventilator Sputum Culture - Preliminary Presumptive Mssa (Pbp2a Neg) Non Lactose Fermenting Gnb Lactose Fermenting Neg Bacilli 05/01/18 07:30 Blood - Peripheral Venous Blood Culture - Preliminary NO GROWTH OBTAINED AFTER 24 HOURS, INCUBATION TO CONTINUE FOR 4 DAYS. 05/01/18 07:00 Blood - Peripheral Venous Blood Culture - Preliminary NO GROWTH OBTAINED AFTER 24 HOURS, INCUBATION TO CONTINUE FOR 4 DAYS. 04/30/18 10:38 Urine For Antigen Detection Legionella Antigen - Final 04/30/18 10:38 Urine For Antigen Detection Streptococcus pneumoniae Antigen (M - Final a/p sepsis bacteremia-staph await ID and sensi- ?skin source pneumonia/atelectasis-unchnanged samuel/ckd ?myeloma-labs pending overall prognosis poor continue zosyn consider taper steroids
--- NOTE | 2018-05-02 16:58 | PROC ---
Procedure Note Procedure: Called by patient's RN as they are unable to get peripheral iv access after multiple attempts. Right EJ cleansed with chloraprep. 20 guage angiocath inserted. Line aspirates with good venous blood return. Flushed with 5cc NS. Heplock secured. Ok to use line.
[2018-05-02] MEDS ORDERED: SODIUM CHLORIDE 50 ML IVPB ONE (17:13)
[2018-05-02] MEDS: PIPERACILLIN/TAZOB 2.25 GM 2.25 GM in SODIUM CHLORIDE 50 ML IVPB SCH (17:37)
--- NOTE | 2018-05-02 21:37 | PN ---
Progress Note (short form) - Note Progress Note: vented / lethargic / but arousalable awake able to nod to questions appropriately Vital Signs Period Temp Pulse Resp BP Sys/Corrigan Pulse Ox Last 24 Hr 98.5 F-100 F 70-91 12-26 134-157/62-70 100-100 vented - trach awake Heart: RRR Lung: scattered rhonchi Abd: soft, nontender Ext: + edema, +gangrene anasarca CBC, BMP 05/02/18 06:30 05/02/18 06:30 CBC, BMP 05/01/18 07:00 05/01/18 07:00 Microbiology 04/30/18 15:09 Back Gram Stain - Final 04/30/18 15:09 Back Wound Culture - Preliminary Lactose Fermenting Neg Bacilli Non Lactose Fermenting Gnb Mr S Aureus Vr Ec Faecalis 04/29/18 17:30 Blood - Peripheral Venous Blood Culture - Final Staphylococcus Aureus 04/29/18 17:30 Urine - Urine Clean Catch Urine Culture - Preliminary Lactose Fermenting Neg Bacilli Pseudomonas Aeruginosa Group D Strep Or Entero Coccus 04/29/18 17:30 Blood - Peripheral Venous Blood Culture - Final Staphylococcus Aureus 05/01/18 07:00 Sputum - Endotrachea Suction/Ventilator Gram Stain - Final 05/01/18 07:00 Sputum - Endotrachea Suction/Ventilator Sputum Culture - Preliminary Presumptive Mssa (Pbp2a Neg) Non Lactose Fermenting Gnb Lactose Fermenting Neg Bacilli 05/01/18 07:30 Blood - Peripheral Venous Blood Culture - Preliminary NO GROWTH OBTAINED AFTER 24 HOURS, INCUBATION TO CONTINUE FOR 4 DAYS. 05/01/18 07:00 Blood - Peripheral Venous Blood Culture - Preliminary NO GROWTH OBTAINED AFTER 24 HOURS, INCUBATION TO CONTINUE FOR 4 DAYS. 04/30/18 10:38 Urine For Antigen Detection Legionella Antigen - Final 04/30/18 10:38 Urine For Antigen Detection Streptococcus pneumoniae Antigen (M - Final Active Medications Acetaminophen (Ofirmev Injection -) 1,000 mg IVPB Q6H PRN PRN Reason: PAIN SCALE 6-10 Last Admin: 05/01/18 15:27 Dose: 1,000 mg Acetylcysteine (Mucomyst 20 Oral / Inh Use Only*) 200 mg NEB RQID JOE Last Admin: 05/01/18 15:18 Dose: 200 mg Albuterol Sulfate (Ventolin 0.083% Nebulizer Soln -) 1 amp NEB RQID [facility] Last Admin: 05/01/18 15:18 Dose: 1 amp Amino Acids (Prosource No Carb Liquid Pkt) 30 ml PEG BID [facility] Aspirin (Asa -) 81 mg PEG DAILY JOE Clopidogrel Bisulfate (Plavix -) 75 mg PEG DAILY JOE Digoxin (Lanoxin -) 0.125 mg PEG MoWeFr [facility] Piperacillin Sod/Tazobactam (Sod 2.25 gm/ Dextrose) 50 mls @ 100 mls/hr IVPB Q8H-IV JOE; Protocol Last Admin: 05/01/18 18:08 Dose: 100 mls/hr Lidocaine HCl (Xylocaine 5% Top. Ointment) 1 applic TP BID JOE Lorazepam (Ativan Injection -) 1 mg IVPUSH HS JOE Methylprednisolone Sodium Succinate (Solu-Medrol -) 60 mg IVPUSH Q8H-IV [facility]E Last Admin: 05/01/18 18:09 Dose: 60 mg Metoprolol Tartrate (Lopressor -) 50 mg PEG TID [facility] Last Admin: 05/01/18 15:27 Dose: 50 mg Ranitidine HCl (Zantac Oral Solution -) 150 mg PEG BID JOE Silver Sulfadiazine (Silvadene -) 1 applic TP BID [facility] assmt #Sepsis await c/s emepric abx #resp failure acute on chronic - patient with trache - hx unclear Ac12/ 40 FiO2 CXR opacified right hemithorax PNA / atelectasis / fluid overload # HOPE CKD baseline unknown / proteinuria / hematuria appreciate renal consult #PVD gangrene toes / fingers vascular consult wound care silvadene / lidocaine #DM hx multiple episodes of hypoglycemia will monitor BS no coverage and no hypoglycemics #HTN moitor Bp treat as needed # severe malnutrition albumin 1.[address] start feeding - nephro AND add protein supplement [facility] called - patient has been at [facility] for approx one week and limited information obtained . Problem List - Problems (1) Sepsis Code(s): A41.9 - SEPSIS, UNSPECIFIED ORGANISM Qualifiers: Sepsis type: Escherichia coli, in Qualified Code(s): P36.4 - Sepsis of due to Escherichia coli (2) Respiratory failure, acute and chronic Code(s): J96.20 - ACUTE AND CHR RESP FAILURE, UNSP W HYPOXIA OR HYPERCAPNIA (3) Altered mental status Code(s): R41.82 - ALTERED MENTAL STATUS, UNSPECIFIED (4) CKD (chronic kidney disease) Code(s): N18.9 - CHRONIC KIDNEY DISEASE, UNSPECIFIED (5) PVD (peripheral vascular disease) Code(s): I73.9 - PERIPHERAL VASCULAR DISEASE, UNSPECIFIED (6) CAD (coronary artery disease) Code(s): I25.10 - ATHSCL HEART DISEASE OF [place] CORONARY ARTERY W/O ANG PCTRS (7) Atrial fibrillation Code(s): I48.91 - UNSPECIFIED ATRIAL FIBRILLATION (8) Hypertension Code(s): I10 - ESSENTIAL (PRIMARY) HYPERTENSION (9) Diabetes mellitus Code(s): E11.9 - TYPE 2 DIABETES MELLITUS WITHOUT COMPLICATIONS (10) Sepsis Code(s): A41.9 - SEPSIS, UNSPECIFIED ORGANISM
[2018-05-02] MEDS: LORazepam 2 MG/ML SDV VIAL IVPUSH SCH (22:35)
[2018-05-03] MEDS ORDERED: SODIUM CHLORIDE 50 ML IVPB ONE ×2 (01:06→10:17)
[2018-05-03] MEDS ORDERED: PIPERACILLIN/TAZOBACTAM 2.25 GM VIAL IVPB ONE ×2 (01:06→10:16)
[2018-05-03] MEDS: PIPERACILLIN/TAZOB 2.25 GM 2.25 GM in SODIUM CHLORIDE 50 ML IVPB SCH ×2 (02:00→10:58)
[2018-05-03] MEDS: methylPREDNISolone NA SUCC 40 MG/1 ML VIAL IVPUSH SCH ×2 (02:00→10:47)
[2018-05-03] MEDS: METOPROLOL TARTRATE 50 MG TABLET (FP) PEG SCH ×3 (06:26→22:35)
[2018-05-03] MEDS ORDERED: PT OWN MED DRAWER 7, Y5N ONE ×2 (06:59→10:16)
[2018-05-03] MEDS: ACETYLCYSTEINE 20% 200MG/ML 4 ML VIAL *FOR ORAL / INH USE ONLY NEB SCH ×4 (07:20→20:15)
[2018-05-03] MEDS: ALBUTEROL SO4 0.083% IH SOL 2.5 MG/3 ML VIAL.NEB. NEB SCH ×4 (07:20→20:15)
[2018-05-03 08:41] LABS: ALBUMIN 1.5 g/dl (3.4-5.0); ALK PHOS 193 U/L (45-117); ANION GAP 11 MMOL/L (8-16); BILIRUBIN,TOTAL 0.3 mg/dL (0.2-1); BLOOD UREA NITROGEN 103 mg/dL (7-18); CALCIUM 7.4 mg/dL (8.5-10.1); CHLORIDE 93 mmol/L (98-107); CO2 20 mmol/L (21-32); CREATININE 3.4 mg/dL (0.55-1.3); GLUCOSE,RANDOM 285 mg/dL (74-106); POTASSIUM 5.2 mmol/L (3.5-5.1); SGOT/AST 8 U/L (15-37); SGPT/ALT 6 U/L (13-61); SODIUM 124 mmol/L (136-145); TOT PROT 5.5 g/dl (6.4-8.2)
--- NOTE | 2018-05-03 10:48 | PN ---
Progress Note (short form) - Note Progress Note: 58 y/o female found lying in bed. NAD. Nods yes for pain but unable to state location. Vital Signs Period Temp Pulse Resp BP Sys/Corrigan Pulse Ox Last 24 Hr 97.4 F-98.3 F 72-104 17-24 141-147/71-82 97-98 CBC, BMP 05/03/18 07:55 05/03/18 07:55 HEENT- Normocephalic, Trach in place Neck-supple Lungs- CTAb Heart- S1/S2 Abd- Soft, Nt, PEG intact Ext- Gangrenous B/L fingers and toes Active Medications Acetaminophen (Ofirmev Injection -) 1,000 mg IVPB Q6H PRN PRN Reason: PAIN SCALE 6-10 Last Admin: 05/01/18 15:27 Dose: 1,000 mg Acetylcysteine (Mucomyst 20 Oral / Inh Use Only*) 200 mg NEB RQID [facility] Last Admin: 05/03/18 07:20 Dose: 200 mg Albuterol Sulfate (Ventolin 0.083% Nebulizer Soln -) 1 amp NEB RQID [facility] Last Admin: 05/03/18 07:20 Dose: 1 amp Amino Acids (Prosource No Carb Liquid Pkt) 30 ml PEG BID [facility] Last Admin: 05/02/18 22:35 Dose: 30 ml Aspirin (Asa -) 81 mg PEG DAILY [facility] Last Admin: 05/02/18 11:29 Dose: 81 mg Clopidogrel Bisulfate (Plavix -) 75 mg PEG DAILY [facility] Last Admin: 05/02/18 11:28 Dose: 75 mg Collagenase (Santyl -) 1 applic TP DAILY [facility]E; Protocol Last Admin: 05/02/18 11:48 Dose: 1 applic Digoxin (Lanoxin -) 0.125 mg PEG MoWeFr [facility] Last Admin: 05/02/18 12:38 Dose: 0.125 mg Piperacillin Sod/Tazobactam (Sod 2.25 gm/ Sodium Chloride) 50 mls @ 100 mls/hr IVPB Q8H-IV JOE; Protocol Last Admin: 05/03/18 02:00 Dose: 100 mls/hr Insulin Aspart (Novolog Vial Sliding Scale -) 1 vial SQ TIDAC [facility]; Protocol Lidocaine HCl (Xylocaine 5% Top. Ointment) 1 applic TP BID [facility] Last Admin: 05/02/18 22:35 Dose: Not Given Lorazepam (Ativan Injection -) 1 mg IVPUSH HS [facility] Last Admin: 05/02/18 22:35 Dose: 1 mg Methylprednisolone Sodium Succinate (Solu-Medrol -) 60 mg IVPUSH Q8H-IV [facility] Last Admin: 05/03/18 02:00 Dose: 60 mg Metoprolol Tartrate (Lopressor -) 50 mg PEG TID [facility] Last Admin: 05/03/18 06:26 Dose: 50 mg Ranitidine HCl (Zantac Oral Solution -) 150 mg PEG BID [facility] Last Admin: 05/02/18 22:35 Dose: 150 mg assmt #Sepsis await c/s IV antibiotics per ID # Pain IV Tylenol prn #resp failure acute on chronic - patient with trach CXR reviewed- no change from previous PNA / atelectasis / fluid overload # HOPE CKD baseline unknown / proteinuria / hematuria Trend renal #PVD gangrene toes / fingers vascular consult local wound care #DM hx BG 285 monitor BS Sliding scale #HTN monitor BP # severe malnutrition albumin 1.[address] Cont nephro and protein supplement Problem List - Problems (1) Sepsis Code(s): A41.9 - SEPSIS, UNSPECIFIED ORGANISM Qualifiers: Sepsis type: Escherichia coli, in Qualified Code(s): P36.4 - Sepsis of due to Escherichia coli (2) Respiratory failure, acute and chronic Code(s): J96.20 - ACUTE AND CHR RESP FAILURE, UNSP W HYPOXIA OR HYPERCAPNIA (3) Altered mental status Code(s): R41.82 - ALTERED MENTAL STATUS, UNSPECIFIED (4) CKD (chronic kidney disease) Code(s): N18.9 - CHRONIC KIDNEY DISEASE, UNSPECIFIED (5) PVD (peripheral vascular disease) Code(s): I73.9 - PERIPHERAL VASCULAR DISEASE, UNSPECIFIED (6) CAD (coronary artery disease) Code(s): I25.10 - ATHSCL HEART DISEASE OF [place] CORONARY ARTERY W/O ANG PCTRS (7) Atrial fibrillation Code(s): I48.91 - UNSPECIFIED ATRIAL FIBRILLATION (8) Hypertension Code(s): I10 - ESSENTIAL (PRIMARY) HYPERTENSION (9) Diabetes mellitus Code(s): E11.9 - TYPE 2 DIABETES MELLITUS WITHOUT COMPLICATIONS (10) Sepsis Code(s): A41.9 - SEPSIS, UNSPECIFIED ORGANISM
[2018-05-03 11:21] LABS: HEMATOCRIT 25.4 % (32.4-45.2); HEMOGLOBIN 8.4 GM/dL (10.7-15.3); MCH 30.6 pg (25.7-33.7); MEAN CELL VOLUME 92.8 fl (80-96); MEAN PLT VOLUME 7.1 fl (7.5-11.1); PLATELET COUNT 279 K/MM3 (134-434); RBC 2.74 M/mm3 (3.60-5.2); RDW 18.3 % (11.6-15.6); WHITE BLOOD COUNT 16.5 K/mm3 (4.0-10.0)
[2018-05-03] MEDS: ASPIRIN 81 MG CHEWABLE TABLETS PEG SCH (11:28)
[2018-05-03] MEDS: AMINO ACIDS/PROTEIN HYDROLYS 30 ML LIQUID.PKT PEG SCH ×2 (11:28→22:35)
[2018-05-03] MEDS: CLOPIDOGREL BISULFATE 75 MG TABLET (FP) PEG SCH (11:28)
[2018-05-03] MEDS: LIDOCAINE HCL 5% TOP OINTMENT 50 GM TUBE TP SCH ×2 (11:29→22:43)
[2018-05-03] MEDS: RANITIDINE HCL 150 MG/10 ML UNIT-DOSE PEG SCH ×2 (11:29→22:35)
[2018-05-03] MEDS: ACETAMINOPHEN 1000 MG/100 ML VIAL (NON FORMULARY) IVPB PRN (11:30)
--- NOTE | 2018-05-03 11:32 | PN ---
Progress Note (short form) - Note Progress Note: PULMONARY Vented, awake. CXR showing continued improvement. Vital Signs Period Temp Pulse Resp BP Sys/Corrigan Pulse Ox Last 24 Hr 97.4 F-98.4 F 72-104 17-24 134-147/71-82 97-98 Gen: vented, awake Heart: RRR Lung: scattered rhonchi Abd: soft, nontender Ext: + edema, +gangrene CBC, BMP 05/03/18 07:55 Active Medications Acetaminophen (Ofirmev Injection -) 1,000 mg IVPB Q6H PRN PRN Reason: PAIN SCALE 6-10 Last Admin: 05/01/18 15:27 Dose: 1,000 mg Acetylcysteine (Mucomyst 20 Oral / Inh Use Only*) 200 mg NEB RQID [facility] Last Admin: 05/03/18 11:15 Dose: 200 mg Albuterol Sulfate (Ventolin 0.083% Nebulizer Soln -) 1 amp NEB RQID [facility] Last Admin: 05/03/18 11:16 Dose: 1 amp Amino Acids (Prosource No Carb Liquid Pkt) 30 ml PEG BID [facility] Last Admin: 05/02/18 22:35 Dose: 30 ml Aspirin (Asa -) 81 mg PEG DAILY [facility] Last Admin: 05/02/18 11:29 Dose: 81 mg Clopidogrel Bisulfate (Plavix -) 75 mg PEG DAILY [facility] Last Admin: 05/02/18 11:28 Dose: 75 mg Collagenase (Santyl -) 1 applic TP DAILY [facility]; Protocol Last Admin: 05/02/18 11:48 Dose: 1 applic Digoxin (Lanoxin -) 0.125 mg PEG MoWeFr [facility] Last Admin: 05/02/18 12:38 Dose: 0.125 mg Piperacillin Sod/Tazobactam (Sod 2.25 gm/ Sodium Chloride) 50 mls @ 100 mls/hr IVPB Q8H-IV [facility]; Protocol Last Admin: 05/03/18 10:58 Dose: 100 mls/hr Insulin Aspart (Novolog Vial Sliding Scale -) 1 vial SQ TIDAC [facility]; Protocol Lidocaine HCl (Xylocaine 5% Top. Ointment) 1 applic TP BID [facility] Last Admin: 05/02/18 22:35 Dose: Not Given Lorazepam (Ativan Injection -) 1 mg IVPUSH HS [facility] Last Admin: 05/02/18 22:35 Dose: 1 mg Methylprednisolone Sodium Succinate (Solu-Medrol -) 60 mg IVPUSH Q8H-IV [facility] Last Admin: 05/03/18 10:47 Dose: 60 mg Metoprolol Tartrate (Lopressor -) 50 mg PEG TID [facility] Last Admin: 05/03/18 06:26 Dose: 50 mg Ranitidine HCl (Zantac Oral Solution -) 150 mg PEG BID [facility] Last Admin: 05/02/18 22:35 Dose: 150 mg A/P Chronic Respiratory Failure s/p Tracheostomy Pneumonia vs Atelectasis Staph Bacteremia Sacral Ulcers Sepsis CKD Hyponatremia Volume Overload - continue antibiotics per ID - chest PT, pulmonary toilet - continue mucomyst with inhaled bronchodilators - will d/c steroids - monitor CXR - enteral feeds - DVT prophylaxis
[2018-05-03] MEDS ORDERED: INSULIN (NOVOLOG) ASPART 100 UNITS/ML 10ML VIAL ONE (11:34)
[2018-05-03] MEDS: INSULIN SLIDING SCALE (NOVOLOG) 1 VIAL SQ SCH ×2 (11:45→18:20)
[2018-05-03 12:28] LABS: HBSAG SCREEN Negative (Negative); HEP A AB, IGM Negative (Negative); HEP B CORE AB, TOT Negative (Negative)
--- NOTE | 2018-05-03 12:31 | PN ---
Progress Note, Physician History of Present Illness: Pt seen and examined at bedside. She is awake and appears comfortable. She is able to nod to questions. - Current Medication List Current Medications: Active Medications Acetaminophen (Ofirmev Injection -) 1,000 mg IVPB Q6H PRN PRN Reason: PAIN SCALE 6-10 Last Admin: 05/03/18 11:30 Dose: 1,000 mg Acetylcysteine (Mucomyst 20 Oral / Inh Use Only*) 200 mg NEB RQID [facility] Last Admin: 05/03/18 11:15 Dose: 200 mg Albuterol Sulfate (Ventolin 0.083% Nebulizer Soln -) 1 amp NEB RQID [facility] Last Admin: 05/03/18 11:16 Dose: 1 amp Amino Acids (Prosource No Carb Liquid Pkt) 30 ml PEG BID [facility] Last Admin: 05/03/18 11:28 Dose: 30 ml Aspirin (Asa -) 81 mg PEG DAILY [facility] Last Admin: 05/03/18 11:28 Dose: 81 mg Clopidogrel Bisulfate (Plavix -) 75 mg PEG DAILY [facility] Last Admin: 05/03/18 11:28 Dose: 75 mg Collagenase (Santyl -) 1 applic TP DAILY [facility]; Protocol Last Admin: 05/02/18 11:48 Dose: 1 applic Digoxin (Lanoxin -) 0.125 mg PEG MoWeFr [facility] Last Admin: 05/02/18 12:38 Dose: 0.125 mg Piperacillin Sod/Tazobactam (Sod 2.25 gm/ Sodium Chloride) 50 mls @ 100 mls/hr IVPB Q8H-IV [facility]; Protocol Last Admin: 05/03/18 10:58 Dose: 100 mls/hr Insulin Aspart (Novolog Vial Sliding Scale -) 1 vial SQ TIDAC [facility]; Protocol Last Admin: 05/03/18 11:45 Dose: 6 units Lidocaine HCl (Xylocaine 5% Top. Ointment) 1 applic TP BID [facility] Last Admin: 05/03/18 11:29 Dose: Not Given Lorazepam (Ativan Injection -) 1 mg IVPUSH HS [facility] Last Admin: 05/02/18 22:35 Dose: 1 mg Metoprolol Tartrate (Lopressor -) 50 mg PEG TID [facility] Last Admin: 05/03/18 06:26 Dose: 50 mg Ranitidine HCl (Zantac Oral Solution -) 150 mg PEG BID [facility] Last Admin: 05/03/18 11:29 Dose: 150 mg - Objective Vital Signs: Vital Signs Temperature 98.4 F 05/03/18 10:00 Pulse Rate 76 05/03/18 10:00 Respiratory Rate 23 H 05/03/18 11:14 Blood Pressure 134/75 05/03/18 10:00 O2 Sat by Pulse Oximetry (%) 97 05/03/18 08:05 Constitutional: Yes: Calm Eyes: Yes: Conjunctiva Clear Neck: Yes: Other (trache) Cardiovascular: Yes: S1, S2 Respiratory: Yes: Mechanically Ventilated Gastrointestinal: Yes: Soft, Other (peg) Genitourinary: Yes: [place] Present Edema: Yes (anasarca) Edema: LUE: 2+, RUE: 2+, LLE: 3+, RLE: 3+ Neurological: Yes: Oriented Labs: CBC, BMP 05/03/18 10:25 05/03/18 07:55 INR, PTT INR 1.33 (0.83-1.09) H 04/29/18 17:30 Problem List - Problems (1) Altered mental status Code(s): R41.82 - ALTERED MENTAL STATUS, UNSPECIFIED (2) Atrial fibrillation Code(s): I48.91 - UNSPECIFIED ATRIAL FIBRILLATION (3) CAD (coronary artery disease) Code(s): I25.10 - ATHSCL HEART DISEASE OF [place] CORONARY ARTERY W/O ANG PCTRS (4) CKD (chronic kidney disease) Code(s): N18.9 - CHRONIC KIDNEY DISEASE, UNSPECIFIED (5) Diabetes mellitus Code(s): E11.9 - TYPE 2 DIABETES MELLITUS WITHOUT COMPLICATIONS (6) PVD (peripheral vascular disease) Code(s): I73.9 - PERIPHERAL VASCULAR DISEASE, UNSPECIFIED (7) Respiratory failure, acute and chronic Code(s): J96.20 - ACUTE AND CHR RESP FAILURE, UNSP W HYPOXIA OR HYPERCAPNIA (8) COPD (chronic obstructive pulmonary disease) Code(s): J44.9 - CHRONIC OBSTRUCTIVE PULMONARY DISEASE, UNSPECIFIED Qualifiers: Assessment/Plan Current Medications Generic Name Dose Route Start Last Admin Trade Name Freq PRN Reason Stop Dose Admin Acetaminophen 1,000 mg 05/01/18 15:14 05/03/18 11:30 Ofirmev Injection - IVPB 1,000 mg Q6H PRN Administration PAIN SCALE 6-10 Acetylcysteine 200 mg 05/01/18 16:00 05/03/18 11:15 Mucomyst 20 Oral / Inh Use Only* NEB 200 mg RQID JOE Administration Albuterol Sulfate 1 amp 05/01/18 16:00 05/03/18 11:16 Ventolin 0.083% Nebulizer Soln - NEB 1 amp RQID JOE Administration Amino Acids 30 ml 05/01/18 22:00 05/03/18 11:28 Prosource No Carb Liquid Pkt PEG 30 ml BID JOE Administration Aspirin 81 mg 05/02/18 10:00 05/03/18 11:28 Asa - PEG 81 mg DAILY JOE Administration Clopidogrel Bisulfate 75 mg 05/02/18 10:00 05/03/18 11:28 Plavix - PEG 75 mg DAILY JOE Administration Collagenase 1 applic 05/02/18 10:00 05/02/18 11:48 Santyl - TP 1 applic DAILY JOE Administration Protocol Digoxin 0.125 mg 05/02/18 10:00 05/02/18 12:38 Lanoxin - PEG 0.125 mg MoWeFr JOE Administration Piperacillin Sod/Tazobactam 50 mls @ 100 mls/hr 05/02/18 18:00 05/03/18 10:58 Sod 2.25 gm/ Sodium Chloride IVPB 100 mls/hr Q8H-IV JOE Administration Protocol Insulin Aspart 1 vial 05/03/18 11:00 05/03/18 11:45 Novolog Vial Sliding Scale - SQ 6 units TIDAC JOE Administration Protocol Lidocaine HCl 1 applic 05/01/18 22:00 05/03/18 11:29 Xylocaine 5% Top. Ointment TP Not Given BID [facility] Lorazepam 1 mg 05/01/18 22:00 05/02/18 22:35 Ativan Injection - IVPUSH 1 mg HS JOE Administration Metoprolol Tartrate 50 mg 05/01/18 15:15 05/03/18 06:26 Lopressor - PEG 50 mg TID JOE Administration Ranitidine HCl 150 mg 05/01/18 22:00 05/03/18 11:29 Zantac Oral Solution - PEG 150 mg BID JOE Administration Impression 1. HOPE 2. CKD with unclear baseline 3. sepsis 4. chronic respiratory failure 5. peripheral vascular disease 6. 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 pt with peg tube 8. PNA 9. altered mental status 10. htn 11. DM 12. a-fib 13. hematuria 14. hyponatremia 15. hypoglycemia 16. severe malnutrition 17. hyperkalemia 18. nephrotic range proteinuria Plan - renal function worsening - pt remains overloaded - will give more lasix today - repeat labs in am - pt was getting myeloma workup in other hosp, check light chains - sodium slowly improving - cont feeds - wound care to extremities as she has gangrene - prognosis is guarded Dr Lira
[2018-05-03] MEDS ORDERED: FUROSEMIDE 40 MG/4 ML INJECTABLE VIAL IVPB ONE (13:00)
[2018-05-03] MEDS ORDERED: ALBUMIN HUMAN 25% 12.5 GM/50 ML VIAL IVPB ONE (13:00)
[2018-05-03] MEDS ORDERED: ALBUMIN HUMAN 25% 100 ML VIAL IVPB ONE (14:45)
[2018-05-03] MEDS: COLLAGENASE CLOSTRIDIUM HIST. 30 GRAMS TUBE TP SCH (14:52)
[2018-05-03] MEDS ORDERED: SODIUM CHLORIDE IVPB ONE (17:00)
[2018-05-03] MEDS ORDERED: LEVOFLOXACIN IVPB ONE (17:00)
--- NOTE | 2018-05-03 17:04 | PN ---
Progress Note (short form) - Note Progress Note: alert trach to vent Vital Signs Period Temp Pulse Resp BP Sys/Corrigan Pulse Ox Last 24 Hr 97.4 F-98.4 F 72-104 14-28 134-147/68-82 97-98 cor-rrr lungs decreased bs on the right abd soft, +GT ext necrotic digits unchanged CBC, BMP 05/03/18 10:25 05/03/18 07:55 Microbiology 04/29/18 17:30 Urine - Urine Clean Catch Urine Culture - Final Escherichia Coli [employer] Flow Team Leader Pseudomonas Aeruginosa Vr Ec Faecalis 04/30/18 15:09 Back Gram Stain - Final 04/30/18 15:09 Back Wound Culture - Final Escherichia Coli [employer]bl [employer] Flow Team Leader Proteus Mirabilis Mr S Aureus Vr Ec Faecalis 05/01/18 07:00 Sputum - Endotrachea Suction/Ventilator Gram Stain - Final 05/01/18 07:00 Sputum - Endotrachea Suction/Ventilator Sputum Culture - Preliminary Staphylococcus Aureus Stenotrophomon.(X.)Maltophilia Lactose Fermenting Neg Bacilli 05/01/18 07:30 Blood - Peripheral Venous Blood Culture - Preliminary NO GROWTH OBTAINED AFTER 48 HOURS, INCUBATION TO CONTINUE FOR 3 DAYS. 05/01/18 07:00 Blood - Peripheral Venous Blood Culture - Preliminary NO GROWTH OBTAINED AFTER 48 HOURS, INCUBATION TO CONTINUE FOR 3 DAYS. 04/29/18 17:30 Blood - Peripheral Venous Blood Culture - Final Staphylococcus Aureus 04/29/18 17:30 Blood - Peripheral Venous Blood Culture - Final Staphylococcus Aureus 04/30/18 10:38 Urine For Antigen Detection Legionella Antigen - Final 04/30/18 10:38 Urine For Antigen Detection Streptococcus pneumoniae Antigen (M - Final a/p sepsis bacteremia-MSSA pneumonia/atelectasis-improved sacral ulcer and urine represent colonization will switch to ancef and add levaquin for pneumonia based on present sensitivities samuel/ckd ?myeloma-labs pending overall prognosis poor
[2018-05-03] MEDS: CEFAZOLIN 1 GM in SODIUM CHLORIDE 50 ML IVPB SCH (22:35)
[2018-05-03] MEDS: LORazepam 2 MG/ML SDV VIAL IVPUSH SCH (22:35)
[2018-05-04] MEDS: METOPROLOL TARTRATE 50 MG TABLET (FP) PEG SCH ×3 (06:14→22:45)
[2018-05-04] MEDS: INSULIN SLIDING SCALE (NOVOLOG) 1 VIAL SQ SCH ×3 (06:14→17:14)
[2018-05-04] MEDS: ALBUTEROL SO4 0.083% IH SOL 2.5 MG/3 ML VIAL.NEB. NEB SCH ×4 (08:26→20:40)
[2018-05-04] MEDS: ACETYLCYSTEINE 20% 200MG/ML 4 ML VIAL *FOR ORAL / INH USE ONLY NEB SCH ×4 (08:26→20:40)
[2018-05-04 08:33] LABS: BASO % 0.4 % (0-2.0); HEMOGLOBIN 8.3 GM/dL (10.7-15.3); LYMPH % 1.3 % (8-40); MCH 30.6 pg (25.7-33.7); MCHC 33.1 g/dl (32.0-36.0); MEAN CELL VOLUME 92.5 fl (80-96); MEAN PLT VOLUME 7.4 fl (7.5-11.1); NEUT % 93.3 % (42.8-82.8); PLATELET COUNT 263 K/MM3 (134-434); RBC 2.71 M/mm3 (3.60-5.2); WHITE BLOOD COUNT 19.2 K/mm3 (4.0-10.0)
[2018-05-04 09:13] LABS: ALBUMIN 1.7 g/dl (3.4-5.0); ALK PHOS 202 U/L (45-117); ANION GAP 13 MMOL/L (8-16); BILIRUBIN,TOTAL 0.3 mg/dL (0.2-1); CALCIUM 7.6 mg/dL (8.5-10.1); CHLORIDE 93 mmol/L (98-107); CO2 18 mmol/L (21-32); CREATININE 3.6 mg/dL (0.55-1.3); POTASSIUM 4.9 mmol/L (3.5-5.1); SGOT/AST 7 U/L (15-37); SGPT/ALT 8 U/L (13-61); SODIUM 124 mmol/L (136-145); TOT PROT 5.5 g/dl (6.4-8.2)
[2018-05-04] MEDS: CEFAZOLIN 1 GM in SODIUM CHLORIDE 50 ML IVPB SCH (09:29)
[2018-05-04 09:32] LABS: BLOOD UREA NITROGEN 119 mg/dL (7-18); GLUCOSE,RANDOM 320 mg/dL (74-106)
[2018-05-04 10:18] LABS: ANTIGLOMERULAR BASEMENT MEN.AB 3 units (0-20)
--- NOTE | 2018-05-04 11:10 | PN ---
Progress Note (short form) - Note Progress Note: 58 y/o female found sitting in bed. Trach/vent in place. Vital Signs Period Temp Pulse Resp BP Sys/Corrigan Pulse Ox Last 24 Hr 97.9 F-99.5 F 71-82 14-28 142-150/68-79 100-100 CBC, BMP 05/04/18 06:20 05/04/18 06:20 HEENT- normocephalic, vented Neck-Supple Lungs- Scattered rhonchi Heart- S1/S2 Abd- Soft, nt, PEG in place Ext- 2+/ 3+ pitting edema B/L UEs/LEs Necrotic b/l fingers/toes Active Medications Acetaminophen (Ofirmev Injection -) 1,000 mg IVPB Q6H PRN PRN Reason: PAIN SCALE 6-10 Last Admin: 05/03/18 11:30 Dose: 1,000 mg Acetylcysteine (Mucomyst 20 Oral / Inh Use Only*) 200 mg NEB RQID [facility] Last Admin: 05/04/18 08:26 Dose: 200 mg Albuterol Sulfate (Ventolin 0.083% Nebulizer Soln -) 1 amp NEB RQID [facility] Last Admin: 05/04/18 08:26 Dose: 1 amp Amino Acids (Prosource No Carb Liquid Pkt) 30 ml PEG BID [facility] Last Admin: 05/03/18 22:35 Dose: 30 ml Aspirin (Asa -) 81 mg PEG DAILY [facility] Last Admin: 05/03/18 11:28 Dose: 81 mg Clopidogrel Bisulfate (Plavix -) 75 mg PEG DAILY [facility] Last Admin: 05/03/18 11:28 Dose: 75 mg Collagenase (Santyl -) 1 applic TP DAILY [facility]; Protocol Last Admin: 05/03/18 14:52 Dose: 1 applic Digoxin (Lanoxin -) 0.125 mg PEG MoWeFr [facility] Last Admin: 05/02/18 12:38 Dose: 0.125 mg Cefazolin Sodium 1 gm/ Sodium (Chloride) 50 mls @ 100 mls/hr IVPB BID [facility] Last Admin: 05/04/18 09:29 Dose: 100 mls/hr Insulin Aspart (Novolog Vial Sliding Scale -) 1 vial SQ TIDAC [facility]; Protocol Last Admin: 05/04/18 06:14 Dose: 10 units Lidocaine HCl (Xylocaine 5% Top. Ointment) 1 applic TP BID [facility] Last Admin: 05/03/18 22:43 Dose: Not Given Lorazepam (Ativan Injection -) 1 mg IVPUSH HS [facility] Last Admin: 05/03/18 22:35 Dose: 1 mg Metoprolol Tartrate (Lopressor -) 50 mg PEG TID [facility] Last Admin: 05/04/18 06:14 Dose: 50 mg Nystatin/Triamcinolone Acetonide (Mycolog Ii Ointment -) 1 applic TP BID [facility] Ranitidine HCl (Zantac Oral Solution -) 150 mg PEG BID [facility] Last Admin: 05/03/18 22:35 Dose: 150 mg assmt #Sepsis await c/s IV antibiotics per ID WBC increasing 19.2 # Pain IV Tylenol prn #resp failure acute on chronic - patient with trach PNA / atelectasis / fluid overload # HOPE CKD baseline unknown / proteinuria / hematuria Renal function worsening- BUN 119 #PVD gangrenous toes / fingers local wound care- DPD #DM hx BG 320 monitor BS cont Sliding scale #HTN- controlled monitor BP # severe malnutrition albumin 1.[address] Cont nephro and protein supplement Plan- Case discussed with renal. Renal function worsening. Attending notified. Case to be discussed with dtr regarding palliative care. Problem List - Problems (1) Sepsis Code(s): A41.9 - SEPSIS, UNSPECIFIED ORGANISM Qualifiers: Sepsis type: Escherichia coli, in Qualified Code(s): P36.4 - Sepsis of due to Escherichia coli (2) Respiratory failure, acute and chronic Code(s): J96.20 - ACUTE AND CHR RESP FAILURE, UNSP W HYPOXIA OR HYPERCAPNIA (3) Altered mental status Code(s): R41.82 - ALTERED MENTAL STATUS, UNSPECIFIED (4) CKD (chronic kidney disease) Code(s): N18.9 - CHRONIC KIDNEY DISEASE, UNSPECIFIED (5) PVD (peripheral vascular disease) Code(s): I73.9 - PERIPHERAL VASCULAR DISEASE, UNSPECIFIED (6) CAD (coronary artery disease) Code(s): I25.10 - ATHSCL HEART DISEASE OF [place] CORONARY ARTERY W/O ANG PCTRS (7) Atrial fibrillation Code(s): I48.91 - UNSPECIFIED ATRIAL FIBRILLATION (8) Hypertension Code(s): I10 - ESSENTIAL (PRIMARY) HYPERTENSION (9) Diabetes mellitus Code(s): E11.9 - TYPE 2 DIABETES MELLITUS WITHOUT COMPLICATIONS (10) Sepsis Code(s): A41.9 - SEPSIS, UNSPECIFIED ORGANISM
[2018-05-04] MEDS: ACETAMINOPHEN 1000 MG/100 ML VIAL (NON FORMULARY) IVPB PRN ×2 (11:24→18:11)
[2018-05-04] MEDS: AMINO ACIDS/PROTEIN HYDROLYS 30 ML LIQUID.PKT PEG SCH ×2 (11:26→22:45)
[2018-05-04] MEDS: CLOPIDOGREL BISULFATE 75 MG TABLET (FP) PEG SCH (11:26)
[2018-05-04] MEDS: ASPIRIN 81 MG CHEWABLE TABLETS PEG SCH (11:27)
[2018-05-04] MEDS: DIGOXIN 0.125 MG TABLET (FP) PEG SCH (11:27)
[2018-05-04] MEDS: LIDOCAINE HCL 5% TOP OINTMENT 50 GM TUBE TP SCH ×2 (11:27→22:46)
[2018-05-04] MEDS: RANITIDINE HCL 150 MG/10 ML UNIT-DOSE PEG SCH ×2 (11:28→22:45)
--- NOTE | 2018-05-04 11:31 | PN ---
Progress Note, Physician History of Present Illness: pulmonary alert on vent support ac mode -resp distress - Current Medication List Current Medications: Active Medications Acetaminophen (Ofirmev Injection -) 1,000 mg IVPB Q6H PRN PRN Reason: PAIN SCALE 6-10 Last Admin: 05/03/18 11:30 Dose: 1,000 mg Acetylcysteine (Mucomyst 20 Oral / Inh Use Only*) 200 mg NEB RQID [facility] Last Admin: 05/04/18 08:26 Dose: 200 mg Albuterol Sulfate (Ventolin 0.083% Nebulizer Soln -) 1 amp NEB RQID [facility] Last Admin: 05/04/18 08:26 Dose: 1 amp Amino Acids (Prosource No Carb Liquid Pkt) 30 ml PEG BID [facility] Last Admin: 05/03/18 22:35 Dose: 30 ml Aspirin (Asa -) 81 mg PEG DAILY [facility] Last Admin: 05/03/18 11:28 Dose: 81 mg Clopidogrel Bisulfate (Plavix -) 75 mg PEG DAILY [facility] Last Admin: 05/03/18 11:28 Dose: 75 mg Collagenase (Santyl -) 1 applic TP DAILY [facility]; Protocol Last Admin: 05/03/18 14:52 Dose: 1 applic Digoxin (Lanoxin -) 0.125 mg PEG MoWeFr [facility] Last Admin: 05/02/18 12:38 Dose: 0.125 mg Cefazolin Sodium 1 gm/ Sodium (Chloride) 50 mls @ 100 mls/hr IVPB BID [facility] Last Admin: 05/04/18 09:29 Dose: 100 mls/hr Insulin Aspart (Novolog Vial Sliding Scale -) 1 vial SQ TIDAC [facility]; Protocol Last Admin: 05/04/18 06:14 Dose: 10 units Lidocaine HCl (Xylocaine 5% Top. Ointment) 1 applic TP BID [facility] Last Admin: 05/03/18 22:43 Dose: Not Given Lorazepam (Ativan Injection -) 1 mg IVPUSH HS [facility] Last Admin: 05/03/18 22:35 Dose: 1 mg Metoprolol Tartrate (Lopressor -) 50 mg PEG TID [facility] Last Admin: 05/04/18 06:14 Dose: 50 mg Nystatin/Triamcinolone Acetonide (Mycolog Ii Ointment -) 1 applic TP BID [facility] Ranitidine HCl (Zantac Oral Solution -) 150 mg PEG BID [facility] Last Admin: 05/03/18 22:35 Dose: 150 mg - Objective Vital Signs: Vital Signs Temperature 97.9 F 05/04/18 10:00 Pulse Rate 74 05/04/18 10:29 Respiratory Rate 24 H 05/04/18 10:27 Blood Pressure 145/79 05/04/18 10:00 O2 Sat by Pulse Oximetry (%) 100 05/04/18 10:29 Constitutional: Yes: Well Nourished, Calm Eyes: Yes: WNL HENT: Yes: WNL Neck: Yes: WNL Cardiovascular: Yes: Regular Rate and Rhythm, S1, S2 Respiratory: Yes: Rhonchi (few rhonchi) Gastrointestinal: Yes: Normal Bowel Sounds, Soft Extremities: Yes: Other (gangrene) Edema: Yes Labs: CBC, BMP 05/04/18 06:20 05/04/18 06:20 INR, PTT INR 1.33 (0.83-1.09) H 04/29/18 17:30 Problem List - Problems (1) CKD (chronic kidney disease) Code(s): N18.9 - CHRONIC KIDNEY DISEASE, UNSPECIFIED (2) Diabetes mellitus Code(s): E11.9 - TYPE 2 DIABETES MELLITUS WITHOUT COMPLICATIONS (3) Hypertension Code(s): I10 - ESSENTIAL (PRIMARY) HYPERTENSION (4) Respiratory failure, acute and chronic Code(s): J96.20 - ACUTE AND CHR RESP FAILURE, UNSP W HYPOXIA OR HYPERCAPNIA (5) COPD (chronic obstructive pulmonary disease) Code(s): J44.9 - CHRONIC OBSTRUCTIVE PULMONARY DISEASE, UNSPECIFIED Qualifiers: Assessment/Plan A/P Chronic Respiratory Failure s/p Tracheostomy Atelectasis improving Pneumonia Staph Bacteremia Sacral Ulcers Sepsis CKD Hyponatremia Volume Overload - antibiotics per ID - chest PT, pulmonary toilet - continue mucomyst and inhaled bronchodilators - medrol - monitor CXR - enteral feeds - DVT prophylaxis DR ARROYO
--- NOTE | 2018-05-04 12:24 | PN ---
Progress Note (short form) - Note Progress Note: alert trach to vent worsening renal function Vital Signs Period Temp Pulse Resp BP Sys/Corrigan Pulse Ox Last 24 Hr 97.9 F-99.5 F 71-82 14-28 142-150/68-79 100-100 cor-rrr lungs decreased bs at bases abd soft, +flank edema ext multiple necrotic digits sacral ulcer CBC, BMP 05/04/18 06:20 05/04/18 06:20 Microbiology 05/01/18 07:00 Sputum - Endotrachea Suction/Ventilator Gram Stain - Final 05/01/18 07:00 Sputum - Endotrachea Suction/Ventilator Sputum Culture - Final Staphylococcus Aureus Stenotrophomon.(X.)Maltophilia Escherichia Coli Esbl Customer Order Clerk 05/01/18 07:30 Blood - Peripheral Venous Blood Culture - Preliminary NO GROWTH OBTAINED AFTER 72 HOURS, INCUBATION TO CONTINUE FOR 2 DAYS. 05/01/18 07:00 Blood - Peripheral Venous Blood Culture - Preliminary NO GROWTH OBTAINED AFTER 72 HOURS, INCUBATION TO CONTINUE FOR 2 DAYS. 04/29/18 17:30 Urine - Urine Clean Catch Urine Culture - Final Escherichia Coli Esbl Customer Order Clerk Pseudomonas Aeruginosa Vr Ec Faecalis 04/30/18 15:09 Back Gram Stain - Final 04/30/18 15:09 Back Wound Culture - Final Escherichia Coli Esbl Customer Order Clerk Proteus Mirabilis Mr S Aureus Vr Ec Faecalis 04/29/18 17:30 Blood - Peripheral Venous Blood Culture - Final Staphylococcus Aureus 04/29/18 17:30 Blood - Peripheral Venous Blood Culture - Final Staphylococcus Aureus 04/30/18 10:38 Urine For Antigen Detection Legionella Antigen - Final 04/30/18 10:38 Urine For Antigen Detection Streptococcus pneumoniae Antigen (M - Final a/p sepsis ervmjcoiir-DWZZ-znpxwn blood cultures negative pneumonia/rnpvlmolibt-fqmlhgaf-gvxz ecoli- will switch to ertapenam sacral ulcer and urine represent colonization change drew (catheter from prior hospital) samuel/ckd overall prognosis poor consider palliative care evaluation contact isolation
[2018-05-04] MEDS ORDERED: ERTAPENEM SODIUM 1 GM in SODIUM CHLORIDE 50 ML IVPB SCH (12:30)
[2018-05-04 12:32] LABS: ANISOCYTOSIS 1+; MACROCYTOSIS 0; PLATELET ESTIMATE NORMAL
[2018-05-04] MEDS: NYSTATIN/TRIAMCINOLONE TOPICAL OINTMENT 15 GM TUBE TP SCH ×2 (12:46→22:45)
--- NOTE | 2018-05-04 13:22 | PN ---
Progress Note, Physician History of Present Illness: Pt seen and examine at bedside. No great change in clinical status. - Current Medication List Current Medications: Active Medications Acetaminophen (Ofirmev Injection -) 1,000 mg IVPB Q6H PRN PRN Reason: PAIN SCALE 6-10 Last Admin: 05/04/18 11:24 Dose: 1,000 mg Acetylcysteine (Mucomyst 20 Oral / Inh Use Only*) 200 mg NEB RQID [facility] Last Admin: 05/04/18 08:26 Dose: 200 mg Albuterol Sulfate (Ventolin 0.083% Nebulizer Soln -) 1 amp NEB RQID [facility] Last Admin: 05/04/18 11:30 Dose: 1 amp Amino Acids (Prosource No Carb Liquid Pkt) 30 ml PEG BID [facility] Last Admin: 05/04/18 11:26 Dose: 30 ml Aspirin (Asa -) 81 mg PEG DAILY [facility] Last Admin: 05/04/18 11:27 Dose: 81 mg Clopidogrel Bisulfate (Plavix -) 75 mg PEG DAILY [facility] Last Admin: 05/04/18 11:26 Dose: 75 mg Collagenase (Santyl -) 1 applic TP DAILY [facility]; Protocol Last Admin: 05/03/18 14:52 Dose: 1 applic Digoxin (Lanoxin -) 0.125 mg PEG MoWeFr [facility] Last Admin: 05/04/18 11:27 Dose: 0.125 mg Ertapenem 0.5 gm/ Sodium (Chloride) 50 mls @ 100 mls/hr IVPB DAILY [facility] Insulin Aspart (Novolog Vial Sliding Scale -) 1 vial SQ TIDAC [facility]; Protocol Last Admin: 05/04/18 11:25 Dose: 6 units Lidocaine HCl (Xylocaine 5% Top. Ointment) 1 applic TP BID [facility] Last Admin: 05/04/18 11:27 Dose: Not Given Lorazepam (Ativan Injection -) 1 mg IVPUSH HS [facility] Last Admin: 05/03/18 22:35 Dose: 1 mg Metoprolol Tartrate (Lopressor -) 50 mg PEG TID [facility] Last Admin: 05/04/18 06:14 Dose: 50 mg Nystatin/Triamcinolone Acetonide (Mycolog Ii Ointment -) 1 applic TP BID [facility] Ranitidine HCl (Zantac Oral Solution -) 150 mg PEG BID [facility] Last Admin: 05/04/18 11:28 Dose: 150 mg - Objective Vital Signs: Vital Signs Temperature 97.9 F 05/04/18 10:00 Pulse Rate 76 05/04/18 11:27 Respiratory Rate 24 H 05/04/18 10:27 Blood Pressure 145/79 05/04/18 10:00 O2 Sat by Pulse Oximetry (%) 100 05/04/18 10:29 Constitutional: Yes: Calm Eyes: Yes: Conjunctiva Clear HENT: Yes: Atraumatic Neck: Yes: Other (trache) Cardiovascular: Yes: S1, S2 Respiratory: Yes: Mechanically Ventilated Gastrointestinal: Yes: Abdomen, Obese, Other (anasarca) Genitourinary: Yes: Montoya Present Musculoskeletal: Yes: Muscle Weakness Edema: Yes Edema: LUE: 2+, RUE: 2+, LLE: 2+, RLE: 2+ Neurological: Yes: Oriented Psychiatric: Yes: Oriented Labs: CBC, BMP 05/04/18 06:20 05/04/18 06:20 INR, PTT INR 1.33 (0.83-1.09) H 04/29/18 17:30 Problem List - Problems (1) Altered mental status Code(s): R41.82 - ALTERED MENTAL STATUS, UNSPECIFIED (2) Atrial fibrillation Code(s): I48.91 - UNSPECIFIED ATRIAL FIBRILLATION (3) CAD (coronary artery disease) Code(s): I25.10 - ATHSCL HEART DISEASE OF [place] CORONARY ARTERY W/O ANG PCTRS (4) CKD (chronic kidney disease) Code(s): N18.9 - CHRONIC KIDNEY DISEASE, UNSPECIFIED (5) Diabetes mellitus Code(s): E11.9 - TYPE 2 DIABETES MELLITUS WITHOUT COMPLICATIONS (6) PVD (peripheral vascular disease) Code(s): I73.9 - PERIPHERAL VASCULAR DISEASE, UNSPECIFIED (7) Respiratory failure, acute and chronic Code(s): J96.20 - ACUTE AND CHR RESP FAILURE, UNSP W HYPOXIA OR HYPERCAPNIA (8) COPD (chronic obstructive pulmonary disease) Code(s): J44.9 - CHRONIC OBSTRUCTIVE PULMONARY DISEASE, UNSPECIFIED Qualifiers: Assessment/Plan Current Medications Generic Name Dose Route Start Last Admin Trade Name Freq PRN Reason Stop Dose Admin Acetaminophen 1,000 mg 05/01/18 15:14 05/04/18 11:24 Ofirmev Injection - IVPB 1,000 mg Q6H PRN Administration PAIN SCALE 6-10 Acetylcysteine 200 mg 05/01/18 16:00 05/04/18 08:26 Mucomyst 20 Oral / Inh Use Only* NEB 200 mg RQID JOE Administration Albumin Human 25 gm 05/04/18 13:18 Albumin Human 25% IVPB 05/04/18 13:19 ONCE ONE Albuterol Sulfate 1 amp 05/01/18 16:00 05/04/18 11:30 Ventolin 0.083% Nebulizer Soln - NEB 1 amp RQID JOE Administration Amino Acids 30 ml 05/01/18 22:00 05/04/18 11:26 Prosource No Carb Liquid Pkt PEG 30 ml BID [facility] Administration Aspirin 81 mg 05/02/18 10:00 05/04/18 11:27 Asa - PEG 81 mg DAILY [facility] Administration Clopidogrel Bisulfate 75 mg 05/02/18 10:00 05/04/18 11:26 Plavix - PEG 75 mg DAILY [facility] Administration Collagenase 1 applic 05/02/18 10:00 05/03/18 14:52 Santyl - TP 1 applic DAILY [facility] Administration Protocol Digoxin 0.125 mg 05/02/18 10:00 05/04/18 11:27 Lanoxin - PEG 0.125 mg MoWeFr [facility]E Administration Furosemide 80 mg 05/04/18 14:00 Lasix Injection - IVPB BID@0600,1400 [facility] Ertapenem 0.5 gm/ Sodium 50 mls @ 100 mls/hr 05/04/18 12:45 Chloride IVPB DAILY [facility] Insulin Aspart 1 vial 05/03/18 11:00 05/04/18 11:25 Novolog Vial Sliding Scale - SQ 6 units TIDAC [facility] Administration Protocol Lidocaine HCl 1 applic 05/01/18 22:00 05/04/18 11:27 Xylocaine 5% Top. Ointment TP Not Given BID [facility] Lorazepam 1 mg 05/01/18 22:00 05/03/18 22:35 Ativan Injection - IVPUSH 1 mg HS [facility] Administration Metoprolol Tartrate 50 mg 05/01/18 15:15 05/04/18 06:14 Lopressor - PEG 50 mg TID [facility] Administration Nystatin/Triamcinolone Acetonide 1 applic 05/04/18 11:15 Mycolog Ii Ointment - TP BID [facility] Ranitidine HCl 150 mg 05/01/18 22:00 05/04/18 11:28 Zantac Oral Solution - PEG 150 mg BID [facility] Administration Laboratory Tests 05/03/18 10:25 Free [place] LC, Quant Pending Free Lambda LC, Quant Pending Free [place]/Lambda Ratio Pending Impression 1. HOPE 2. CKD with unclear baseline 3. sepsis 4. chronic respiratory failure 5. peripheral vascular disease 6. 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 pt with peg tube 8. PNA 9. altered mental status 10. htn 11. DM 12. a-fib 13. hematuria 14. hyponatremia 15. hypoglycemia 16. severe malnutrition 17. hyperkalemia 18. nephrotic range proteinuria Plan - renal function continues to worsen - will give lasix for fluid overload - called and discussed with her daughter, she will think about the goals of care, dose not want hd at this time - pt is a poor candidate for HD - likely has myeloma, follow light chains. Pt was being worked up for myeloma in [place] but workup stopped as she was too sick - sodium slowly improving - cont feeds - wound care to extremities as she has gangrene - prognosis is guarded Dr Lira
[2018-05-04] MEDS: COLLAGENASE CLOSTRIDIUM HIST. 30 GRAMS TUBE TP SCH (13:29)
[2018-05-04] MEDS ORDERED: PT OWN MED DRAWER 7, Y5N ONE (13:52)
[2018-05-04] MEDS ORDERED: FUROSEMIDE 100 MG/10 ML INJECTABLE VIAL IVPB SCH (14:00)
[2018-05-04] MEDS ORDERED: ALBUMIN HUMAN 25% 12.5 GM/50 ML VIAL IVPB ONE (14:00)
[2018-05-04] MEDS: ERTAPENEM SODIUM 0.5 GM in SODIUM CHLORIDE 50 ML IVPB SCH (14:11)
[2018-05-04] MEDS: FUROSEMIDE 40 MG/4 ML INJECTABLE VIAL IVPB SCH (16:39)
[2018-05-04 19:15] LABS: FREE KAPPA,SERUM 176.2 mg/L (3.3-19.4)
[2018-05-04] MEDS: LORazepam 2 MG/ML SDV VIAL IVPUSH SCH (22:45)
[2018-05-05] MEDS ORDERED: INSULIN (NOVOLOG) ASPART 100 UNITS/ML 10ML VIAL ONE ×2 (05:14→07:17)
[2018-05-05] MEDS ORDERED: FUROSEMIDE 40 MG/4 ML INJECTABLE VIAL IVPB SCH (06:00)
[2018-05-05] MEDS: INSULIN SLIDING SCALE (NOVOLOG) 1 VIAL SQ SCH ×3 (06:39→17:04)
[2018-05-05] MEDS: METOPROLOL TARTRATE 50 MG TABLET (FP) PEG SCH ×3 (06:39→22:26)
[2018-05-05] MEDS: FUROSEMIDE 40 MG/4 ML INJECTABLE VIAL IVPB SCH ×2 (06:40→15:05)
[2018-05-05] MEDS: ACETYLCYSTEINE 20% 200MG/ML 4 ML VIAL *FOR ORAL / INH USE ONLY NEB SCH ×4 (08:39→21:00)
[2018-05-05] MEDS: ALBUTEROL SO4 0.083% IH SOL 2.5 MG/3 ML VIAL.NEB. NEB SCH ×4 (08:42→21:00)
[2018-05-05] MEDS: RANITIDINE HCL 150 MG/10 ML UNIT-DOSE PEG SCH ×2 (11:51→22:26)
[2018-05-05] MEDS: ASPIRIN 81 MG CHEWABLE TABLETS PEG SCH (11:52)
[2018-05-05] MEDS: CLOPIDOGREL BISULFATE 75 MG TABLET (FP) PEG SCH (11:52)
[2018-05-05] MEDS: AMINO ACIDS/PROTEIN HYDROLYS 30 ML LIQUID.PKT PEG SCH ×2 (11:52→22:26)
[2018-05-05] MEDS: NYSTATIN/TRIAMCINOLONE TOPICAL OINTMENT 15 GM TUBE TP SCH ×2 (11:53→22:37)
[2018-05-05] MEDS: COLLAGENASE CLOSTRIDIUM HIST. 30 GRAMS TUBE TP SCH (11:53)
[2018-05-05] MEDS: LIDOCAINE HCL 5% TOP OINTMENT 50 GM TUBE TP SCH ×2 (11:53→22:36)
[2018-05-05] MEDS: ACETAMINOPHEN 1000 MG/100 ML VIAL (NON FORMULARY) IVPB PRN (12:00)
[2018-05-05 12:24] LABS: BASO % 0.2 % (0-2.0); EOS % 0.1 % (0-4.5); HEMATOCRIT 25.4 % (32.4-45.2); HEMOGLOBIN 8.3 GM/dL (10.7-15.3); LYMPH % 2.6 % (8-40); MCH 29.9 pg (25.7-33.7); MCHC 32.7 g/dl (32.0-36.0); MEAN CELL VOLUME 91.5 fl (80-96); MEAN PLT VOLUME 7.5 fl (7.5-11.1); MONO % 1.3 % (3.8-10.2); NEUT % 95.8 % (42.8-82.8); PLATELET COUNT 229 K/MM3 (134-434); RBC 2.78 M/mm3 (3.60-5.2); RDW 18.6 % (11.6-15.6); WHITE BLOOD COUNT 15.7 K/mm3 (4.0-10.0)
[2018-05-05 12:39] LABS: ANION GAP 13 MMOL/L (8-16); CALCIUM 7.1 mg/dL (8.5-10.1); CHLORIDE 95 mmol/L (98-107); CO2 19 mmol/L (21-32); CREATININE 3.7 mg/dL (0.55-1.3); GLUCOSE,RANDOM 143 mg/dL (74-106); POTASSIUM 4.6 mmol/L (3.5-5.1); SODIUM 127 mmol/L (136-145)
[2018-05-05 12:48] LABS: BLOOD UREA NITROGEN 131 mg/dL (7-18)
--- NOTE | 2018-05-05 13:17 | PN ---
Progress Note (short form) - Note Progress Note: PULMONARY Vented, sleeping. Family at bedside. Renal considering HD. Vital Signs Period Temp Pulse Resp BP Sys/Corrigan Pulse Ox Last 24 Hr 98.1 F-99.3 F 70-79 16-25 131-151/63-72 99-100 Gen: vented, sleeping Heart: RRR Lung: scattered rhonchi Abd: soft, nontender Ext: + edema, +gangrene CBC, BMP 05/05/18 10:40 05/05/18 10:40 Active Medications Acetaminophen (Ofirmev Injection -) 1,000 mg IVPB Q6H PRN PRN Reason: PAIN SCALE 6-10 Last Admin: 05/04/18 18:11 Dose: 1,000 mg Acetylcysteine (Mucomyst 20 Oral / Inh Use Only*) 200 mg NEB RQID [facility] Last Admin: 05/05/18 11:39 Dose: 200 mg Albuterol Sulfate (Ventolin 0.083% Nebulizer Soln -) 1 amp NEB RQID [facility] Last Admin: 05/05/18 11:40 Dose: 1 amp Amino Acids (Prosource No Carb Liquid Pkt) 30 ml PEG BID [facility] Last Admin: 05/05/18 11:52 Dose: 30 ml Aspirin (Asa -) 81 mg PEG DAILY [facility] Last Admin: 05/05/18 11:52 Dose: 81 mg Clopidogrel Bisulfate (Plavix -) 75 mg PEG DAILY [facility] Last Admin: 05/05/18 11:52 Dose: 75 mg Collagenase (Santyl -) 1 applic TP DAILY [facility]; Protocol Last Admin: 05/05/18 11:53 Dose: 1 applic Digoxin (Lanoxin -) 0.125 mg PEG MoWeFr [facility] Last Admin: 05/04/18 11:27 Dose: 0.125 mg Furosemide (Lasix Injection -) 80 mg IVPB BID@0600,1400 [facility] Last Admin: 05/05/18 06:40 Dose: 80 mg Ertapenem 0.5 gm/ Sodium (Chloride) 50 mls @ 100 mls/hr IVPB DAILY [facility] Last Admin: 05/04/18 14:11 Dose: 100 mls/hr Insulin Aspart (Novolog Vial Sliding Scale -) 1 vial SQ TIDAC [facility]; Protocol Last Admin: 05/05/18 12:21 Dose: Not Given Lidocaine HCl (Xylocaine 5% Top. Ointment) 1 applic TP BID [facility] Last Admin: 05/05/18 11:53 Dose: 1 applic Lorazepam (Ativan Injection -) 1 mg IVPUSH HS [facility] Last Admin: 05/04/18 22:45 Dose: 1 mg Metoprolol Tartrate (Lopressor -) 50 mg PEG TID [facility] Last Admin: 05/05/18 06:39 Dose: 50 mg Nystatin/Triamcinolone Acetonide (Mycolog Ii Ointment -) 1 applic TP BID [facility] Last Admin: 05/05/18 11:53 Dose: 1 applic Ranitidine HCl (Zantac Oral Solution -) 150 mg PEG BID [facility] Last Admin: 05/05/18 11:51 Dose: 150 mg A/P Chronic Respiratory Failure s/p Tracheostomy Pneumonia vs Atelectasis Staph Bacteremia Sacral Ulcers Dry Gangrene Sepsis Multiple Myeloma Acute on CKD Hyponatremia Volume Overload - continue antibiotics per ID - chest PT, pulmonary toilet - continue mucomyst with inhaled bronchodilators - monitor off steroids - monitor CXR - enteral feeds - DVT prophylaxis - continue discussions regarding goals of care
--- NOTE | 2018-05-05 14:11 | PN ---
Progress Note (short form) - Note Progress Note: opens her eyes to voice weak Vital Signs Period Temp Pulse Resp BP Sys/Corrigan Pulse Ox Last 24 Hr 98.1 F-99.3 F 70-79 16-25 143-151/63-72 99-100 cor-rrr lungs decreased bs at bases abd soft, +flank edema ext +edema +dry gangrene +trach +drew CBC, BMP 05/05/18 10:40 05/05/18 10:40 Microbiology 05/01/18 07:30 Blood - Peripheral Venous Blood Culture - Preliminary NO GROWTH OBTAINED AFTER 96 HOURS, INCUBATION TO CONTINUE FOR 1 DAYS. 05/01/18 07:00 Blood - Peripheral Venous Blood Culture - Preliminary NO GROWTH OBTAINED AFTER 96 HOURS, INCUBATION TO CONTINUE FOR 1 DAYS. 05/01/18 07:00 Sputum - Endotrachea Suction/Ventilator Gram Stain - Final 05/01/18 07:00 Sputum - Endotrachea Suction/Ventilator Sputum Culture - Final Staphylococcus Aureus Stenotrophomon.(X.)Maltophilia Escherichia Coli Esbl Chief Technician X Ray 04/29/18 17:30 Urine - Urine Clean Catch Urine Culture - Final Escherichia Coli Esbl Chief Technician X Ray Pseudomonas Aeruginosa Vr Ec Faecalis 04/30/18 15:09 Back Gram Stain - Final 04/30/18 15:09 Back Wound Culture - Final Escherichia Coli Esbl Chief Technician X Ray Proteus Mirabilis Mr S Aureus Vr Ec Faecalis 04/29/18 17:30 Blood - Peripheral Venous Blood Culture - Final Staphylococcus Aureus 04/29/18 17:30 Blood - Peripheral Venous Blood Culture - Final Staphylococcus Aureus 04/30/18 10:38 Urine For Antigen Detection Legionella Antigen - Final 04/30/18 10:38 Urine For Antigen Detection Streptococcus pneumoniae Antigen (M - Final a/p sepsis gdxteqnsii-VBLN-cniupa blood cultures negative pneumonia/vkyjwqmoybg-iiluktlu-mpbr ecoli- will switch to ertapenam sacral ulcer and urine represent colonization s/p drew change samuel/ckd-worsening ?myeloma overall prognosis poor consider palliative care evaluation contact isolation d/w dr braswell d/w daughter at bedside
[2018-05-05 14:24] LABS: ANISOCYTOSIS 2+; MACROCYTOSIS 0; OVALOCYTE 1+; PLATELET ESTIMATE NORMAL
--- NOTE | 2018-05-05 14:46 | PN ---
Progress Note (short form) - Note Progress Note: vented lethargic prognosis discussed extensively with daughter ( HCP) discussed dx of MM / ARF / Resp failure /anemia /malnutrition quality of life/ options for treatment and poor prognosis ( apporx 1 hour) daughter expresses preference for comfort care, aware prognosis is poor however states her mother voiced wishes to have "everything done " -- however its unclear mother understand extent of her dx and overall clinical condition. daughter will discuss further with Step father and will "make a decision " She has been informed use of narcotics for pain management and comfort care will compromise her BP and will make extubation significantly more difficult, - she understands also aware of deteriorating renal function and progression to failure, she is not ready to accept HD at this time. Vital Signs Period Temp Pulse Resp BP Sys/Corrigan Pulse Ox Last 24 Hr 98.5 F-100 F 70-91 12-26 134-157/62-70 100-100 vented - trach awake Heart: RRR Lung: scattered rhonchi Abd: soft, nontender Ext: + edema, +gangrene anasarca CBC, BMP 05/05/18 10:40 05/05/18 10:40 CBC, BMP 05/01/18 07:00 05/01/18 07:00 Microbiology 05/01/18 07:30 Blood - Peripheral Venous Blood Culture - Preliminary NO GROWTH OBTAINED AFTER 96 HOURS, INCUBATION TO CONTINUE FOR 1 DAYS. 05/01/18 07:00 Blood - Peripheral Venous Blood Culture - Preliminary NO GROWTH OBTAINED AFTER 96 HOURS, INCUBATION TO CONTINUE FOR 1 DAYS. 05/01/18 07:00 Sputum - Endotrachea Suction/Ventilator Gram Stain - Final 05/01/18 07:00 Sputum - Endotrachea Suction/Ventilator Sputum Culture - Final Staphylococcus Aureus Stenotrophomon.(X.)Maltophilia Escherichia Coli Esbl Paper Stacker 04/29/18 17:30 Urine - Urine Clean Catch Urine Culture - Final Escherichia Coli Esbl Paper Stacker Pseudomonas Aeruginosa Vr Ec Faecalis 04/30/18 15:09 Back Gram Stain - Final 04/30/18 15:09 Back Wound Culture - Final Escherichia Coli Esbl Paper Stacker Proteus Mirabilis Mr S Aureus Vr Ec Faecalis 04/29/18 17:30 Blood - Peripheral Venous Blood Culture - Final Staphylococcus Aureus 04/29/18 17:30 Blood - Peripheral Venous Blood Culture - Final Staphylococcus Aureus 04/30/18 10:38 Urine For Antigen Detection Legionella Antigen - Final 04/30/18 10:38 Urine For Antigen Detection Streptococcus pneumoniae Antigen (M - Final Active Medications Acetaminophen (Ofirmev Injection -) 1,000 mg IVPB Q6H PRN PRN Reason: PAIN SCALE 6-10 Last Admin: 05/04/18 18:11 Dose: 1,000 mg Acetylcysteine (Mucomyst 20 Oral / Inh Use Only*) 200 mg NEB RQID [facility] Last Admin: 05/05/18 11:39 Dose: 200 mg Albuterol Sulfate (Ventolin 0.083% Nebulizer Soln -) 1 amp NEB RQID [facility] Last Admin: 05/05/18 11:40 Dose: 1 amp Amino Acids (Prosource No Carb Liquid Pkt) 30 ml PEG BID [facility] Last Admin: 05/05/18 11:52 Dose: 30 ml Aspirin (Asa -) 81 mg PEG DAILY [facility] Last Admin: 05/05/18 11:52 Dose: 81 mg Clopidogrel Bisulfate (Plavix -) 75 mg PEG DAILY [facility] Last Admin: 05/05/18 11:52 Dose: 75 mg Collagenase (Santyl -) 1 applic TP DAILY [facility]; Protocol Last Admin: 05/05/18 11:53 Dose: 1 applic Digoxin (Lanoxin -) 0.125 mg PEG MoWeFr [facility] Last Admin: 05/04/18 11:27 Dose: 0.125 mg Furosemide (Lasix Injection -) 80 mg IVPB BID@0600,1400 [facility] Last Admin: 05/05/18 06:40 Dose: 80 mg Ertapenem 0.5 gm/ Sodium (Chloride) 50 mls @ 100 mls/hr IVPB DAILY [facility] Last Admin: 05/04/18 14:11 Dose: 100 mls/hr Insulin Aspart (Novolog Vial Sliding Scale -) 1 vial SQ TIDAC [facility]; Protocol Last Admin: 05/05/18 12:21 Dose: Not Given Lidocaine HCl (Xylocaine 5% Top. Ointment) 1 applic TP BID [facility] Last Admin: 05/05/18 11:53 Dose: 1 applic Lorazepam (Ativan Injection -) 1 mg IVPUSH HS [facility] Last Admin: 05/04/18 22:45 Dose: 1 mg Metoprolol Tartrate (Lopressor -) 50 mg PEG TID [facility] Last Admin: 05/05/18 06:39 Dose: 50 mg Nystatin/Triamcinolone Acetonide (Mycolog Ii Ointment -) 1 applic TP BID [facility] Last Admin: 05/05/18 11:53 Dose: 1 applic Ranitidine HCl (Zantac Oral Solution -) 150 mg PEG BID [facility] Last Admin: 05/05/18 11:51 Dose: 150 mg assmt #Sepsis bwuwvgauub-RSKC-ojoluv blood cultures negative pneumonia/fuveyjecnfv-ipotowrc-ebcv ecoli- will switch to ertapenam #resp failure acute on chronic - patient with trache - hx unclear Ac12/ 40 FiO2 CXR opacified right hemithorax clearing up but CXR looking more congested than last few days PNA / atelectasis / fluid overload Pulmonary consult appreciated # HOPE CKD baseline unknown / proteinuria / hematuria progressive deterioration of renal function HD has been offered but declined at this time #PVD gangrene toes / fingers vascular consult wound care silvadene / lidocaine for open wounds dry gangrene no tx #DM hx multiple episodes of hypoglycemia early in admission BS has remained elevated or normal #HTN monitor Bp and treat as needed # severe malnutrition albumin 1.[address] start feeding - nephro AND add protein supplement HOB elevated # Comfort care request palliative care consult will discuss with daughter again in am possible DNR status / comfort care Problem List - Problems (1) Sepsis Code(s): A41.9 - SEPSIS, UNSPECIFIED ORGANISM Qualifiers: Sepsis type: methicillin resistant Staphylococcus aureus Qualified Code(s) : A41.02 - Sepsis due to Methicillin resistant Staphylococcus aureus (2) Respiratory failure, acute and chronic Code(s): J96.20 - ACUTE AND CHR RESP FAILURE, UNSP W HYPOXIA OR HYPERCAPNIA (3) Altered mental status Code(s): R41.82 - ALTERED MENTAL STATUS, UNSPECIFIED (4) CKD (chronic kidney disease) Code(s): N18.9 - CHRONIC KIDNEY DISEASE, UNSPECIFIED (5) PVD (peripheral vascular disease) Code(s): I73.9 - PERIPHERAL VASCULAR DISEASE, UNSPECIFIED (6) CAD (coronary artery disease) Code(s): I25.10 - ATHSCL HEART DISEASE OF [place] CORONARY ARTERY W/O ANG PCTRS (7) Atrial fibrillation Code(s): I48.91 - UNSPECIFIED ATRIAL FIBRILLATION (8) Hypertension Code(s): I10 - ESSENTIAL (PRIMARY) HYPERTENSION (9) Diabetes mellitus Code(s): E11.9 - TYPE 2 DIABETES MELLITUS WITHOUT COMPLICATIONS (10) Tpxom-ts-nnoqray renal failure Code(s): N17.9 - ACUTE KIDNEY FAILURE, UNSPECIFIED; N18.9 - CHRONIC KIDNEY DISEASE, UNSPECIFIED Qualifiers: Qualified Code(s): N17.9 - Acute kidney failure, unspecified; N18.9 - Chronic kidney disease, unspecified
[2018-05-05] MEDS: ERTAPENEM SODIUM 0.5 GM in SODIUM CHLORIDE 50 ML IVPB SCH (15:00)
[2018-05-05] MEDS ORDERED: ALBUMIN HUMAN 25% 12.5 GM/50 ML VIAL IVPB ONE (15:18)
--- NOTE | 2018-05-05 15:18 | PN ---
Progress Note, Physician History of Present Illness: Pt seen and examined at bedside. She is awake. Pt is grossly volume overloaded. - Current Medication List Current Medications: Active Medications Acetaminophen (Ofirmev Injection -) 1,000 mg IVPB Q6H PRN PRN Reason: PAIN SCALE 6-10 Last Admin: 05/04/18 18:11 Dose: 1,000 mg Acetylcysteine (Mucomyst 20 Oral / Inh Use Only*) 200 mg NEB RQID JOE Last Admin: 05/05/18 11:39 Dose: 200 mg Albuterol Sulfate (Ventolin 0.083% Nebulizer Soln -) 1 amp NEB RQID [facility] [place] Last Admin: 05/05/18 11:40 Dose: 1 amp Amino Acids (Prosource No Carb Liquid Pkt) 30 ml PEG BID [facility] Last Admin: 05/05/18 11:52 Dose: 30 ml Aspirin (Asa -) 81 mg PEG DAILY [facility] [place] Last Admin: 05/05/18 11:52 Dose: 81 mg Clopidogrel Bisulfate (Plavix -) 75 mg PEG DAILY [facility] [place] Last Admin: 05/05/18 11:52 Dose: 75 mg Collagenase (Santyl -) 1 applic TP DAILY [facility] [place]; Protocol Last Admin: 05/05/18 11:53 Dose: 1 applic Digoxin (Lanoxin -) 0.125 mg PEG MoWeFr [facility] [place] Last Admin: 05/04/18 11:27 Dose: 0.125 mg Furosemide (Lasix Injection -) 80 mg IVPB BID@0600,1400 [facility] [place] Last Admin: 05/05/18 06:40 Dose: 80 mg Ertapenem 0.5 gm/ Sodium (Chloride) 50 mls @ 100 mls/hr IVPB DAILY [facility] [place] Last Admin: 05/04/18 14:11 Dose: 100 mls/hr Insulin Aspart (Novolog Vial Sliding Scale -) 1 vial SQ TIDAC [facility] [place]; Protocol Last Admin: 05/05/18 12:21 Dose: Not Given Lidocaine HCl (Xylocaine 5% Top. Ointment) 1 applic TP BID [facility] [place] Last Admin: 05/05/18 11:53 Dose: 1 applic Lorazepam (Ativan Injection -) 1 mg IVPUSH HS [facility] [place] Last Admin: 05/04/18 22:45 Dose: 1 mg Metoprolol Tartrate (Lopressor -) 50 mg PEG TID [facility] [place] Last Admin: 05/05/18 06:39 Dose: 50 mg Nystatin/Triamcinolone Acetonide (Mycolog Ii Ointment -) 1 applic TP BID [facility] [place] Last Admin: 05/05/18 11:53 Dose: 1 applic Ranitidine HCl (Zantac Oral Solution -) 150 mg PEG BID [facility] [place] Last Admin: 05/05/18 11:51 Dose: 150 mg - Objective Vital Signs: Vital Signs Temperature 98.1 F 05/05/18 14:44 Pulse Rate 80 05/05/18 14:44 Respiratory Rate 19 05/05/18 14:44 Blood Pressure 144/71 05/05/18 14:44 O2 Sat by Pulse Oximetry (%) 99 05/05/18 09:00 Constitutional: Yes: Calm Eyes: Yes: Conjunctiva Clear HENT: Yes: Atraumatic Neck: Yes: Other (trache) Cardiovascular: Yes: S1, S2 Respiratory: Yes: Rhonchi Gastrointestinal: Yes: Soft, Abdomen, Obese, Other (abd wall edema) Genitourinary: Yes: Montoya Present, Oliguria Musculoskeletal: Yes: Muscle Weakness Edema: Yes Edema: LUE: 3+, RUE: 3+, LLE: 3+, RLE: 3+ Neurological: Yes: Oriented Labs: CBC, BMP 05/05/18 10:40 05/05/18 10:40 INR, PTT INR 1.33 (0.83-1.09) H 04/29/18 17:30 Problem List - Problems (1) Altered mental status Code(s): R41.82 - ALTERED MENTAL STATUS, UNSPECIFIED (2) Atrial fibrillation Code(s): I48.91 - UNSPECIFIED ATRIAL FIBRILLATION (3) CAD (coronary artery disease) Code(s): I25.10 - ATHSCL HEART DISEASE OF [place] CORONARY ARTERY W/O ANG PCTRS (4) CKD (chronic kidney disease) Code(s): N18.9 - CHRONIC KIDNEY DISEASE, UNSPECIFIED (5) Diabetes mellitus Code(s): E11.9 - TYPE 2 DIABETES MELLITUS WITHOUT COMPLICATIONS (6) PVD (peripheral vascular disease) Code(s): I73.9 - PERIPHERAL VASCULAR DISEASE, UNSPECIFIED (7) Respiratory failure, acute and chronic Code(s): J96.20 - ACUTE AND CHR RESP FAILURE, UNSP W HYPOXIA OR HYPERCAPNIA (8) COPD (chronic obstructive pulmonary disease) Code(s): J44.9 - CHRONIC OBSTRUCTIVE PULMONARY DISEASE, UNSPECIFIED Qualifiers: Assessment/Plan Current Medications Generic Name Dose Route Start Last Admin Trade Name Freq PRN Reason Stop Dose Admin Acetaminophen 1,000 mg 05/01/18 15:14 05/04/18 18:11 Ofirmev Injection - IVPB 1,000 mg Q6H PRN Administration PAIN SCALE 6-10 Acetylcysteine 200 mg 05/01/18 16:00 05/05/18 11:39 Mucomyst 20 Oral / Inh Use Only* NEB 200 mg RQID JOE Administration Albuterol Sulfate 1 amp 05/01/18 16:00 05/05/18 11:40 Ventolin 0.083% Nebulizer Soln - NEB 1 amp RQID JOE Administration Amino Acids 30 ml 05/01/18 22:00 05/05/18 11:52 Prosource No Carb Liquid Pkt PEG 30 ml BID JOE Administration Aspirin 81 mg 05/02/18 10:00 05/05/18 11:52 Asa - PEG 81 mg DAILY JOE Administration Clopidogrel Bisulfate 75 mg 05/02/18 10:00 05/05/18 11:52 Plavix - PEG 75 mg DAILY JOE Administration Collagenase 1 applic 05/02/18 10:00 05/05/18 11:53 Santyl - TP 1 applic DAILY JOE Administration Protocol Digoxin 0.125 mg 05/02/18 10:00 05/04/18 11:27 Lanoxin - PEG 0.125 mg MoWeFr JOE Administration Furosemide 80 mg 05/04/18 14:00 05/05/18 06:40 Lasix Injection - IVPB 80 mg BID@0600,1400 JOE Administration Ertapenem 0.5 gm/ Sodium 50 mls @ 100 mls/hr 05/04/18 12:45 05/04/18 14:11 Chloride IVPB 100 mls/hr DAILY JOE Administration Insulin Aspart 1 vial 05/03/18 11:00 05/05/18 12:21 Novolog Vial Sliding Scale - SQ Not Given TIDAC JOE Protocol Lidocaine HCl 1 applic 05/01/18 22:00 05/05/18 11:53 Xylocaine 5% Top. Ointment TP 1 applic BID JOE Administration Lorazepam 1 mg 05/01/18 22:00 05/04/18 22:45 Ativan Injection - IVPUSH 1 mg HS JOE Administration Metoprolol Tartrate 50 mg 05/01/18 15:15 05/05/18 06:39 Lopressor - PEG 50 mg TID JOE Administration Nystatin/Triamcinolone Acetonide 1 applic 05/04/18 11:15 05/05/18 11:53 Mycolog Ii Ointment - TP 1 applic BID JOE Administration Ranitidine HCl 150 mg 05/01/18 22:00 05/05/18 11:51 Zantac Oral Solution - PEG 150 mg BID JOE Administration Laboratory Tests 05/01/18 05/03/18 14:30 10:25 c-ANCA Pending Proteinase 3 (PR3) Pending p-ANCA Pending Atypical p-ANCA Pending Myeloperoxidase Ab Pending Double Strand DNA Ab 1 Glomerular Base Memb Ab 3 Free [place] LC, Quant 176.2 H Free [place] LC, Quant 207.3 H Free [place]/Lambda Ratio 0.85 Impression 1. HOPE 2. CKD with unclear baseline 3. sepsis 4. chronic respiratory failure 5. peripheral vascular disease 6. 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 pt with peg tube 8. PNA 9. altered mental status 10. htn 11. DM 12. a-fib 13. hematuria 14. hyponatremia 15. hypoglycemia 16. severe malnutrition 17. hyperkalemia 18. nephrotic range proteinuria Plan - cont to monitor renal function - spoke to daughter, she does not want HD for her mother - cont lasix - will give a dose of albumin - follow renal workup - sodium is improving - cont feeds - wound care to extremities as she has gangrene - prognosis is guarded Dr Lira
[2018-05-05] MEDS: MORPHINE SULFATE 2 MG/ML VIAL IVPUSH PRN (17:13)
[2018-05-05] MEDS: LORazepam 2 MG/ML SDV VIAL IVPUSH SCH (22:25)
[2018-05-06] MEDS: FUROSEMIDE 40 MG/4 ML INJECTABLE VIAL IVPB SCH ×2 (05:10→15:56)
[2018-05-06] MEDS: METOPROLOL TARTRATE 50 MG TABLET (FP) PEG SCH ×3 (06:32→23:08)
[2018-05-06] MEDS: INSULIN SLIDING SCALE (NOVOLOG) 1 VIAL SQ SCH ×3 (06:34→17:59)
[2018-05-06] MEDS: ALBUTEROL SO4 0.083% IH SOL 2.5 MG/3 ML VIAL.NEB. NEB SCH ×3 (08:30→16:00)
[2018-05-06] MEDS: ACETYLCYSTEINE 20% 200MG/ML 4 ML VIAL *FOR ORAL / INH USE ONLY NEB SCH ×4 (08:30→20:25)
[2018-05-06 10:34] LABS: ALBUMIN 1.6 g/dl (3.4-5.0); ALK PHOS 166 U/L (45-117); ANION GAP 14 MMOL/L (8-16); BILIRUBIN,TOTAL 0.2 mg/dL (0.2-1); CALCIUM 7.2 mg/dL (8.5-10.1); CHLORIDE 95 mmol/L (98-107); CO2 18 mmol/L (21-32); CREATININE 3.9 mg/dL (0.55-1.3); GLUCOSE,RANDOM 116 mg/dL (74-106); POTASSIUM 4.6 mmol/L (3.5-5.1); SGOT/AST 10 U/L (15-37); SGPT/ALT < 6 U/L (13-61); SODIUM 127 mmol/L (136-145); TOT PROT 4.4 g/dl (6.4-8.2)
[2018-05-06 11:16] LABS: BLOOD UREA NITROGEN 142 mg/dL (7-18)
--- NOTE | 2018-05-06 11:43 | PN ---
Progress Note (short form) - Note Progress Note: PULMONARY Vented, more awake today. Vital Signs Period Temp Pulse Resp BP Sys/Corrigan Pulse Ox Last 24 Hr 98 F-99.3 F 75-88 15-23 132-148/61-78 99 Gen: vented, awake Heart: RRR Lung: scattered rhonchi Abd: soft, nontender Ext: + edema, +gangrene CBC, BMP 05/05/18 10:40 05/06/18 07:30 Active Medications Acetaminophen (Ofirmev Injection -) 1,000 mg IVPB Q6H PRN PRN Reason: PAIN SCALE 6-10 Last Admin: 05/05/18 12:00 Dose: 1,000 mg Acetylcysteine (Mucomyst 20 Oral / Inh Use Only*) 200 mg NEB RQID [facility] Last Admin: 05/05/18 21:00 Dose: 200 mg Albuterol Sulfate (Ventolin 0.083% Nebulizer Soln -) 1 amp NEB RQID [facility] Last Admin: 05/05/18 21:00 Dose: 1 amp Amino Acids (Prosource No Carb Liquid Pkt) 30 ml PEG BID [facility] Last Admin: 05/05/18 22:26 Dose: 30 ml Aspirin (Asa -) 81 mg PEG DAILY [facility] Last Admin: 05/05/18 11:52 Dose: 81 mg Clopidogrel Bisulfate (Plavix -) 75 mg PEG DAILY [facility] Last Admin: 05/05/18 11:52 Dose: 75 mg Collagenase (Santyl -) 1 applic TP DAILY [facility]; Protocol Last Admin: 05/05/18 11:53 Dose: 1 applic Digoxin (Lanoxin -) 0.125 mg PEG MoWeFr [facility] Last Admin: 05/04/18 11:27 Dose: 0.125 mg Furosemide (Lasix Injection -) 80 mg IVPB BID@0600,1400 [facility] Last Admin: 05/06/18 05:10 Dose: 80 mg Ertapenem 0.5 gm/ Sodium (Chloride) 50 mls @ 100 mls/hr IVPB DAILY [facility] Last Admin: 05/05/18 15:00 Dose: 100 mls/hr Insulin Aspart (Novolog Vial Sliding Scale -) 1 vial SQ TIDAC [facility]; Protocol Last Admin: 05/06/18 06:34 Dose: Not Given Lidocaine HCl (Xylocaine 5% Top. Ointment) 1 applic TP BID [facility] Last Admin: 05/05/18 22:36 Dose: 1 applic Lorazepam (Ativan Injection -) 1 mg IVPUSH HS [facility] Last Admin: 05/05/18 22:25 Dose: 1 mg Metoprolol Tartrate (Lopressor -) 50 mg PEG TID [facility] Last Admin: 05/06/18 06:32 Dose: 50 mg Morphine Sulfate (Morphine Sulfate) 2 mg IVPUSH Q4H PRN PRN Reason: PAIN LEVEL 4 - 6 Last Admin: 05/05/18 17:13 Dose: 2 mg Nystatin/Triamcinolone Acetonide (Mycolog Ii Ointment -) 1 applic TP BID [facility] Last Admin: 05/05/18 22:37 Dose: 1 applic Ranitidine HCl (Zantac Oral Solution -) 150 mg PEG BID [facility] Last Admin: 05/05/18 22:26 Dose: 150 mg A/P Chronic Respiratory Failure s/p Tracheostomy Pneumonia vs Atelectasis Staph Bacteremia Sacral Ulcers Dry Gangrene Sepsis Multiple Myeloma Acute on CKD Hyponatremia Volume Overload - continue antibiotics per ID - chest PT, pulmonary toilet - continue mucomyst with inhaled bronchodilators - monitor off steroids - monitor CXR - enteral feeds - DVT prophylaxis - continue discussions regarding goals of care
[2018-05-06] MEDS: CLOPIDOGREL BISULFATE 75 MG TABLET (FP) PEG SCH (11:48)
[2018-05-06] MEDS: AMINO ACIDS/PROTEIN HYDROLYS 30 ML LIQUID.PKT PEG SCH ×2 (11:48→23:08)
[2018-05-06] MEDS: ERTAPENEM SODIUM 0.5 GM in SODIUM CHLORIDE 50 ML IVPB SCH (11:48)
[2018-05-06] MEDS: COLLAGENASE CLOSTRIDIUM HIST. 30 GRAMS TUBE TP SCH (11:49)
[2018-05-06] MEDS: RANITIDINE HCL 150 MG/10 ML UNIT-DOSE PEG SCH ×2 (11:49→23:08)
[2018-05-06] MEDS: NYSTATIN/TRIAMCINOLONE TOPICAL OINTMENT 15 GM TUBE TP SCH ×2 (11:49→23:10)
[2018-05-06] MEDS: LIDOCAINE HCL 5% TOP OINTMENT 50 GM TUBE TP SCH ×2 (11:49→23:10)
[2018-05-06] MEDS: ASPIRIN 81 MG CHEWABLE TABLETS PEG SCH (11:49)
[2018-05-06] MEDS ORDERED: INSULIN (NOVOLOG) ASPART 100 UNITS/ML 10ML VIAL ONE (11:51)
[2018-05-06] MEDS: MORPHINE SULFATE 2 MG/ML VIAL IVPUSH PRN ×2 (11:52→17:59)
--- NOTE | 2018-05-06 13:48 | PN ---
Progress Note (short form) - Note Progress Note: vented awake - interactive able to provide c/o pain - inspite of Morphine given 90 minutes earlier no family at bedside Vital Signs Period Temp Pulse Resp BP Sys/Corrigan Pulse Ox Last 24 Hr 98 F-99.3 F 75-88 15-28 132-148/61-78 99 vented - trache awake Heart: RRR Lung: scattered rhonchi on right with decreased BS left hemithorax grossly clear ant and laterally Abd: soft, nontender Ext: + edema, +gangrene anasarca 05/06/18 07:30 CBC, BMP 05/05/18 10:40 05/05/18 10:40 CBC, BMP 05/01/18 07:00 05/01/18 07:00 Microbiology 05/01/18 07:30 Blood - Peripheral Venous Blood Culture - Final NO GROWTH AFTER 5 DAYS INCUBATION 05/01/18 07:00 Blood - Peripheral Venous Blood Culture - Final NO GROWTH AFTER 5 DAYS INCUBATION 05/01/18 07:00 Sputum - Endotrachea Suction/Ventilator Gram Stain - Final 05/01/18 07:00 Sputum - Endotrachea Suction/Ventilator Sputum Culture - Final Staphylococcus Aureus Stenotrophomon.(X.)Maltophilia Escherichia Coli Esbl Mortarman 04/29/18 17:30 Urine - Urine Clean Catch Urine Culture - Final Escherichia Coli Esbl Mortarman Pseudomonas Aeruginosa Vr Ec Faecalis 04/30/18 15:09 Back Gram Stain - Final 04/30/18 15:09 Back Wound Culture - Final Escherichia Coli Esbl Mortarman Proteus Mirabilis Mr S Aureus Vr Ec Faecalis 04/29/18 17:30 Blood - Peripheral Venous Blood Culture - Final Staphylococcus Aureus 04/29/18 17:30 Blood - Peripheral Venous Blood Culture - Final Staphylococcus Aureus 04/30/18 10:38 Urine For Antigen Detection Legionella Antigen - Final 04/30/18 10:38 Urine For Antigen Detection Streptococcus pneumoniae Antigen (M - Final Active Medications Acetaminophen (Ofirmev Injection -) 1,000 mg IVPB Q6H PRN PRN Reason: PAIN SCALE 6-10 Last Admin: 05/05/18 12:00 Dose: 1,000 mg Acetylcysteine (Mucomyst 20 Oral / Inh Use Only*) 200 mg NEB RQID JOE Last Admin: 05/06/18 12:59 Dose: 200 mg Albuterol Sulfate (Ventolin 0.083% Nebulizer Soln -) 1 amp NEB RQID [facility] Last Admin: 05/06/18 12:59 Dose: 1 amp Amino Acids (Prosource No Carb Liquid Pkt) 30 ml PEG BID [facility] Last Admin: 05/06/18 11:48 Dose: 30 ml Aspirin (Asa -) 81 mg PEG DAILY [facility] Last Admin: 05/06/18 11:49 Dose: 81 mg Clopidogrel Bisulfate (Plavix -) 75 mg PEG DAILY [facility] Last Admin: 05/06/18 11:48 Dose: 75 mg Collagenase (Santyl -) 1 applic TP DAILY [facility]; Protocol Last Admin: 05/06/18 11:49 Dose: 1 applic Digoxin (Lanoxin -) 0.125 mg PEG MoWeFr [facility] Last Admin: 05/04/18 11:27 Dose: 0.125 mg Furosemide (Lasix Injection -) 80 mg IVPB BID@0600,1400 [facility] Last Admin: 05/06/18 05:10 Dose: 80 mg Ertapenem 0.5 gm/ Sodium (Chloride) 50 mls @ 100 mls/hr IVPB DAILY [facility] Last Admin: 05/06/18 11:48 Dose: 100 mls/hr Insulin Aspart (Novolog Vial Sliding Scale -) 1 vial SQ TIDAC [facility]; Protocol Last Admin: 05/06/18 11:57 Dose: 1 units Lidocaine HCl (Xylocaine 5% Top. Ointment) 1 applic TP BID [facility] Last Admin: 05/06/18 11:49 Dose: 1 applic Lorazepam (Ativan Injection -) 1 mg IVPUSH HS [facility] Last Admin: 05/05/18 22:25 Dose: 1 mg Metoprolol Tartrate (Lopressor -) 50 mg PEG TID [facility] Last Admin: 05/06/18 06:32 Dose: 50 mg Morphine Sulfate (Morphine Sulfate) 2 mg IVPUSH Q4H PRN PRN Reason: PAIN LEVEL 4 - 6 Last Admin: 05/06/18 11:52 Dose: 2 mg Nystatin/Triamcinolone Acetonide (Mycolog Ii Ointment -) 1 applic TP BID [facility] Last Admin: 05/06/18 11:49 Dose: 1 applic Ranitidine HCl (Zantac Oral Solution -) 150 mg PEG BID [facility] Last Admin: 05/06/18 11:49 Dose: 150 mg assmt #Sepsis [id number] blood cultures negative pneumonia/[id number]-[id number]-hrlc ecoli- will switch to ertapenam #resp failure acute on chronic - patient with trache - hx unclear Ac12/ 40 FiO2 CXR opacified right hemithorax clearing up but CXR looking more congested than last few days PNA / atelectasis / fluid overload Pulmonary consult appreciated # HOPE CKD baseline unknown / proteinuria / hematuria progressive deterioration of renal function HD has been offered but declined at this time #PVD gangrene toes / fingers vascular consult wound care silvadene / lidocaine for open wounds dry gangrene no tx #DM hx multiple episodes of hypoglycemia early in admission BS has remained elevated or normal #HTN monitor Bp and treat as needed # severe malnutrition albumin 1.[address] start feeding - nephro AND add protein supplement HOB elevated # Comfort care / pain mamagement request palliative care consult possible DNR status / comfort care Problem List - Problems (1) Sepsis Code(s): A41.9 - SEPSIS, UNSPECIFIED ORGANISM Qualifiers: Sepsis type: methicillin resistant Staphylococcus aureus Qualified Code(s) : A41.02 - Sepsis due to Methicillin resistant Staphylococcus aureus (2) Respiratory failure, acute and chronic Code(s): J96.20 - ACUTE AND CHR RESP FAILURE, UNSP W HYPOXIA OR HYPERCAPNIA (3) Altered mental status Code(s): R41.82 - ALTERED MENTAL STATUS, UNSPECIFIED (4) CKD (chronic kidney disease) Code(s): N18.9 - CHRONIC KIDNEY DISEASE, UNSPECIFIED (5) PVD (peripheral vascular disease) Code(s): I73.9 - PERIPHERAL VASCULAR DISEASE, UNSPECIFIED (6) CAD (coronary artery disease) Code(s): I25.10 - ATHSCL HEART DISEASE OF [place] CORONARY ARTERY W/O ANG PCTRS (7) Atrial fibrillation Code(s): I48.91 - UNSPECIFIED ATRIAL FIBRILLATION (8) Hypertension Code(s): I10 - ESSENTIAL (PRIMARY) HYPERTENSION (9) Diabetes mellitus Code(s): E11.9 - TYPE 2 DIABETES MELLITUS WITHOUT COMPLICATIONS (10) [id number] renal failure Code(s): N17.9 - ACUTE KIDNEY FAILURE, UNSPECIFIED; N18.9 - CHRONIC KIDNEY DISEASE, UNSPECIFIED Qualifiers: Qualified Code(s): N17.9 - Acute kidney failure, unspecified; N18.9 - Chronic kidney disease, unspecified
--- NOTE | 2018-05-06 15:53 | PN ---
Progress Note, Physician History of Present Illness: Pt seen and examined at bedside. No great change. She is awake and is able to nod. She was made DNR today. - Current Medication List Current Medications: Active Medications Acetaminophen (Ofirmev Injection -) 1,000 mg IVPB Q6H PRN PRN Reason: PAIN SCALE 6-10 Last Admin: 05/05/18 12:00 Dose: 1,000 mg Acetylcysteine (Mucomyst 20 Oral / Inh Use Only*) 200 mg NEB RQID [facility] Last Admin: 05/06/18 12:59 Dose: 200 mg Albuterol Sulfate (Ventolin 0.083% Nebulizer Soln -) 1 amp NEB RQID [facility] Last Admin: 05/06/18 12:59 Dose: 1 amp Amino Acids (Prosource No Carb Liquid Pkt) 30 ml PEG BID [facility] Last Admin: 05/06/18 11:48 Dose: 30 ml Aspirin (Asa -) 81 mg PEG DAILY [facility] Last Admin: 05/06/18 11:49 Dose: 81 mg Clopidogrel Bisulfate (Plavix -) 75 mg PEG DAILY [facility] Last Admin: 05/06/18 11:48 Dose: 75 mg Collagenase (Santyl -) 1 applic TP DAILY [facility]; Protocol Last Admin: 05/06/18 11:49 Dose: 1 applic Digoxin (Lanoxin -) 0.125 mg PEG MoWeFr [facility] Last Admin: 05/04/18 11:27 Dose: 0.125 mg Furosemide (Lasix Injection -) 80 mg IVPB BID@0600,1400 [facility] Last Admin: 05/06/18 05:10 Dose: 80 mg Ertapenem 0.5 gm/ Sodium (Chloride) 50 mls @ 100 mls/hr IVPB DAILY [facility] Last Admin: 05/06/18 11:48 Dose: 100 mls/hr Insulin Aspart (Novolog Vial Sliding Scale -) 1 vial SQ TIDAC [facility]; Protocol Last Admin: 05/06/18 11:57 Dose: 1 units Lidocaine HCl (Xylocaine 5% Top. Ointment) 1 applic TP BID [facility] Last Admin: 05/06/18 11:49 Dose: 1 applic Lorazepam (Ativan Injection -) 1 mg IVPUSH HS [facility] Last Admin: 05/05/18 22:25 Dose: 1 mg Metoprolol Tartrate (Lopressor -) 50 mg PEG TID [facility] Last Admin: 05/06/18 06:32 Dose: 50 mg Morphine Sulfate (Morphine Sulfate) 2 mg IVPUSH Q4H PRN PRN Reason: PAIN LEVEL 4 - 6 Last Admin: 05/06/18 11:52 Dose: 2 mg Nystatin/Triamcinolone Acetonide (Mycolog Ii Ointment -) 1 applic TP BID [facility] Last Admin: 05/06/18 11:49 Dose: 1 applic Ranitidine HCl (Zantac Oral Solution -) 150 mg PEG BID [facility] Last Admin: 05/06/18 11:49 Dose: 150 mg - Objective Vital Signs: Vital Signs Temperature 100.6 F H 05/06/18 15:29 Pulse Rate 90 05/06/18 15:29 Respiratory Rate 16 05/06/18 15:29 Blood Pressure 164/75 05/06/18 15:29 O2 Sat by Pulse Oximetry (%) 99 05/05/18 21:00 Constitutional: Yes: Calm Eyes: Yes: Conjunctiva Clear HENT: Yes: Atraumatic Neck: Yes: Other (trache) Cardiovascular: Yes: S1, S2 Gastrointestinal: Yes: Other (peg, abd wall edema) Genitourinary: Yes: Montoya Present, Oliguria Edema: Yes Edema: LUE: 2+, RUE: 2+, LLE: 2+, RLE: 2+ Neurological: Yes: Oriented Labs: CBC, BMP 05/05/18 10:40 05/06/18 07:30 INR, PTT INR 1.33 (0.83-1.09) H 04/29/18 17:30 Problem List - Problems (1) Altered mental status Code(s): R41.82 - ALTERED MENTAL STATUS, UNSPECIFIED (2) Atrial fibrillation Code(s): I48.91 - UNSPECIFIED ATRIAL FIBRILLATION (3) CAD (coronary artery disease) Code(s): I25.10 - ATHSCL HEART DISEASE OF [place] CORONARY ARTERY W/O ANG PCTRS (4) CKD (chronic kidney disease) Code(s): N18.9 - CHRONIC KIDNEY DISEASE, UNSPECIFIED (5) Diabetes mellitus Code(s): E11.9 - TYPE 2 DIABETES MELLITUS WITHOUT COMPLICATIONS (6) PVD (peripheral vascular disease) Code(s): I73.9 - PERIPHERAL VASCULAR DISEASE, UNSPECIFIED (7) Respiratory failure, acute and chronic Code(s): J96.20 - ACUTE AND CHR RESP FAILURE, UNSP W HYPOXIA OR HYPERCAPNIA (8) COPD (chronic obstructive pulmonary disease) Code(s): J44.9 - CHRONIC OBSTRUCTIVE PULMONARY DISEASE, UNSPECIFIED Qualifiers: Assessment/Plan Current Medications Generic Name Dose Route Start Last Admin Trade Name Freq PRN Reason Stop Dose Admin Acetaminophen 1,000 mg 05/01/18 15:14 05/05/18 12:00 Ofirmev Injection - IVPB 1,000 mg Q6H PRN Administration PAIN SCALE 6-10 Acetylcysteine 200 mg 05/01/18 16:00 05/06/18 12:59 Mucomyst 20 Oral / Inh Use Only* NEB 200 mg RQID JOE Administration Albuterol Sulfate 1 amp 05/01/18 16:00 05/06/18 12:59 Ventolin 0.083% Nebulizer Soln - NEB 1 amp RQID JOE Administration Amino Acids 30 ml 05/01/18 22:00 05/06/18 11:48 Prosource No Carb Liquid Pkt PEG 30 ml BID JOE Administration Aspirin 81 mg 05/02/18 10:00 05/06/18 11:49 Asa - PEG 81 mg DAILY JOE Administration Clopidogrel Bisulfate 75 mg 05/02/18 10:00 05/06/18 11:48 Plavix - PEG 75 mg DAILY JOE Administration Collagenase 1 applic 05/02/18 10:00 05/06/18 11:49 Santyl - TP 1 applic DAILY JOE Administration Protocol Digoxin 0.125 mg 05/02/18 10:00 05/04/18 11:27 Lanoxin - PEG 0.125 mg MoWeFr JOE Administration Furosemide 80 mg 05/04/18 14:00 05/06/18 05:10 Lasix Injection - IVPB 80 mg BID@0600,1400 JOE Administration Ertapenem 0.5 gm/ Sodium 50 mls @ 100 mls/hr 05/04/18 12:45 05/06/18 11:48 Chloride IVPB 100 mls/hr DAILY JOE Administration Insulin Aspart 1 vial 05/03/18 11:00 05/06/18 11:57 Novolog Vial Sliding Scale - SQ 1 units TIDAC JOE Administration Protocol Lidocaine HCl 1 applic 05/01/18 22:00 05/06/18 11:49 Xylocaine 5% Top. Ointment TP 1 applic BID JOE Administration Lorazepam 1 mg 05/01/18 22:00 05/05/18 22:25 Ativan Injection - IVPUSH 1 mg HS JOE Administration Metoprolol Tartrate 50 mg 05/01/18 15:15 05/06/18 06:32 Lopressor - PEG 50 mg TID JOE Administration Morphine Sulfate 2 mg 05/05/18 16:33 05/06/18 11:52 Morphine Sulfate IVPUSH 2 mg Q4H PRN Administration PAIN LEVEL 4 - 6 Nystatin/Triamcinolone Acetonide 1 applic 05/04/18 11:15 05/06/18 11:49 Mycolog Ii Ointment - TP 1 applic BID JOE Administration Ranitidine HCl 150 mg 05/01/18 22:00 05/06/18 11:49 Zantac Oral Solution - PEG 150 mg BID JOE Administration Impression 1. HOPE 2. CKD with unclear baseline 3. sepsis 4. chronic respiratory failure 5. peripheral vascular disease 6. 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 pt with peg tube 8. PNA 9. altered mental status 10. htn 11. DM 12. a-fib 13. hematuria 14. hyponatremia 15. hypoglycemia 16. severe malnutrition 17. hyperkalemia 18. nephrotic range proteinuria Plan - cont with lasix - repeat labs in am - pt now DNR - family do not want hd - monitor urine output - follow renal workup - sodium is improving - cont feeds - wound care to extremities as she has gangrene - prognosis is guarded Dr Lira
[2018-05-06] MEDS ORDERED: ALBUMIN HUMAN 25% 12.5 GM/50 ML VIAL IVPB ONE (16:00)
[2018-05-06] MEDS: LORazepam 2 MG/ML SDV VIAL IVPUSH SCH (23:09)
[2018-05-06] MEDS: ACETAMINOPHEN 1000 MG/100 ML VIAL (NON FORMULARY) IVPB PRN (23:41)
[2018-05-07] MEDS: METOPROLOL TARTRATE 50 MG TABLET (FP) PEG SCH ×3 (05:32→21:59)
[2018-05-07] MEDS: FUROSEMIDE 40 MG/4 ML INJECTABLE VIAL IVPB SCH ×2 (06:32→15:17)
[2018-05-07] MEDS: INSULIN SLIDING SCALE (NOVOLOG) 1 VIAL SQ SCH ×3 (06:34→17:51)
[2018-05-07] MEDS: ACETYLCYSTEINE 20% 200MG/ML 4 ML VIAL *FOR ORAL / INH USE ONLY NEB SCH ×4 (07:20→20:37)
[2018-05-07 08:54] LABS: ANION GAP 15 MMOL/L (8-16); CALCIUM 7.2 mg/dL (8.5-10.1); CHLORIDE 96 mmol/L (98-107); CO2 17 mmol/L (21-32); GLUCOSE,RANDOM 126 mg/dL (74-106); SODIUM 128 mmol/L (136-145)
[2018-05-07 09:00] LABS: BLOOD UREA NITROGEN 147 mg/dL (7-18)
[2018-05-07] MEDS ORDERED: FENTANYL PATCH WASTE TD PRN (09:49)
[2018-05-07] MEDS ORDERED: ALBUTEROL SO4 0.083% IH SOL 2.5 MG/3 ML VIAL.NEB. NEB ONE (11:13)
[2018-05-07] MEDS: fentaNYL 25mcg/hr PATCH.TD72 TD SCH (11:14)
[2018-05-07] MEDS: MORPHINE SULFATE 2 MG/ML VIAL IVPUSH PRN ×2 (11:14→17:17)
[2018-05-07] MEDS: CLOPIDOGREL BISULFATE 75 MG TABLET (FP) PEG SCH (11:14)
[2018-05-07] MEDS: AMINO ACIDS/PROTEIN HYDROLYS 30 ML LIQUID.PKT PEG SCH ×2 (11:14→21:59)
[2018-05-07] MEDS: ASPIRIN 81 MG CHEWABLE TABLETS PEG SCH (11:18)
[2018-05-07] MEDS: LIDOCAINE HCL 5% TOP OINTMENT 50 GM TUBE TP SCH (11:19)
[2018-05-07] MEDS: RANITIDINE HCL 150 MG/10 ML UNIT-DOSE PEG SCH ×2 (11:19→21:59)
[2018-05-07] MEDS: ERTAPENEM SODIUM 0.5 GM in SODIUM CHLORIDE 50 ML IVPB SCH (11:19)
[2018-05-07] MEDS: NYSTATIN/TRIAMCINOLONE TOPICAL OINTMENT 15 GM TUBE TP SCH ×2 (11:20→21:59)
[2018-05-07] MEDS: COLLAGENASE CLOSTRIDIUM HIST. 30 GRAMS TUBE TP SCH (11:20)
[2018-05-07] MEDS: DIGOXIN 0.125 MG TABLET (FP) PEG SCH ×2 (11:23→13:17)
[2018-05-07] MEDS: ALBUTEROL SO4 0.083% IH SOL 2.5 MG/3 ML VIAL.NEB. NEB SCH ×3 (11:36→20:37)
[2018-05-07 13:15] LABS: ATYPICAL pANCA <1:20 titer (Neg:<1:20); C-ANCA <1:20 titer (Neg:<1:20); P-ANCA <1:20 titer (Neg:<1:20)
--- NOTE | 2018-05-07 14:56 | PN ---
Progress Note (short form) - Note Progress Note: PULMONARY Chart reviewed tmax 99.2 Gen: vented, awake Heart: RRR Lung: scattered rhonchi Abd: soft, nontender Ext: + edema, +gangrene Active Medications reviewed A/P Chronic Respiratory Failure s/p Tracheostomy Pneumonia vs Atelectasis Staph Bacteremia Sacral Ulcers Dry Gangrene Sepsis Multiple Myeloma Acute on CKD Hyponatremia Volume Overload - continue antibiotics per ID - chest PT, pulmonary toilet - continue mucomyst with inhaled bronchodilators - monitor off steroids - monitor CXR - enteral feeds - DVT prophylaxis - continue discussions regarding goals of care Stephanie SWEET MD
--- NOTE | 2018-05-07 16:18 | PN ---
Progress Note (short form) - Note Progress Note: quite alert opens her eyes to voice weak Vital Signs Period Temp Pulse Resp BP Sys/Corrigan Pulse Ox Last 24 Hr 98.6 F-100.3 F 76-95 16-24 113-175/52-78 100-100 cor-rrr lungs crackles right lung abd soft ext +edema +gangrenous digits CBC, BMP 05/05/18 10:40 05/07/18 06:45 Microbiology 05/01/18 07:30 Blood - Peripheral Venous Blood Culture - Final NO GROWTH AFTER 5 DAYS INCUBATION 05/01/18 07:00 Blood - Peripheral Venous Blood Culture - Final NO GROWTH AFTER 5 DAYS INCUBATION 05/01/18 07:00 Sputum - Endotrachea Suction/Ventilator Gram Stain - Final 05/01/18 07:00 Sputum - Endotrachea Suction/Ventilator Sputum Culture - Final Staphylococcus Aureus Stenotrophomon.(X.)Maltophilia Escherichia Coli Esbl Civil Laboratory Technician 04/29/18 17:30 Urine - Urine Clean Catch Urine Culture - Final Escherichia Coli Esbl Civil Laboratory Technician Pseudomonas Aeruginosa Vr Ec Faecalis 04/30/18 15:09 Back Gram Stain - Final 04/30/18 15:09 Back Wound Culture - Final Escherichia Coli Esbl Civil Laboratory Technician Proteus Mirabilis Mr S Aureus Vr Ec Faecalis 04/29/18 17:30 Blood - Peripheral Venous Blood Culture - Final Staphylococcus Aureus 04/29/18 17:30 Blood - Peripheral Venous Blood Culture - Final Staphylococcus Aureus 04/30/18 10:38 Urine For Antigen Detection Legionella Antigen - Final 04/30/18 10:38 Urine For Antigen Detection Streptococcus pneumoniae Antigen (M - Final a/p sepsis [id number] blood cultures negative pneumonia/atelectasis--esbl ecoli- will switch to ertapenam sacral ulcer and urine represent colonization s/p drew change samuel/uwa-rlytdpfot-ppyryb has declinend HD ?myeloma overall prognosis poor palliative care evaluation contact isolation d/w dr braswell yesterday- now DNR d/w daughter at bedside-for now continuig antiibotics-
--- NOTE | 2018-05-07 16:33 | PN ---
Progress Note, Physician History of Present Illness: Pt seen and examined at bedside. She is awake. She feels uncomfortable. - Current Medication List Current Medications: Active Medications Acetaminophen (Ofirmev Injection -) 1,000 mg IVPB Q6H PRN PRN Reason: PAIN SCALE 6-10 Last Admin: 05/06/18 23:41 Dose: 1,000 mg Acetylcysteine (Mucomyst 20 Oral / Inh Use Only*) 200 mg NEB RQID JOE Last Admin: 05/07/18 15:35 Dose: 200 mg Albuterol Sulfate (Ventolin 0.083% Nebulizer Soln -) 1 amp NEB RQID JOE Last Admin: 05/07/18 15:36 Dose: 1 amp Amino Acids (Prosource No Carb Liquid Pkt) 30 ml PEG BID [facility] Last Admin: 05/07/18 11:14 Dose: 30 ml Aspirin (Asa -) 81 mg PEG DAILY [facility] Last Admin: 05/07/18 11:18 Dose: 81 mg Clopidogrel Bisulfate (Plavix -) 75 mg PEG DAILY [facility] Last Admin: 05/07/18 11:14 Dose: 75 mg Collagenase (Santyl -) 1 applic TP DAILY [facility]; Protocol Last Admin: 05/07/18 11:20 Dose: 1 applic Digoxin (Lanoxin -) 0.125 mg PEG MoWeFr [facility] Last Admin: 05/04/18 11:27 Dose: 0.125 mg Fentanyl (Duragesic 25mcg Patch -) 1 patch TD Q72H [facility] Stop: 05/14/18 09:49 Last Admin: 05/07/18 11:14 Dose: 1 patch Furosemide (Lasix Injection -) 80 mg IVPB BID@0600,1400 [facility] Last Admin: 05/07/18 06:32 Dose: 80 mg Ertapenem 0.5 gm/ Sodium (Chloride) 50 mls @ 100 mls/hr IVPB DAILY [facility] Last Admin: 05/07/18 11:19 Dose: 100 mls/hr Insulin Aspart (Novolog Vial Sliding Scale -) 1 vial SQ TIDAC [facility]; Protocol Last Admin: 05/07/18 11:20 Dose: Not Given Lidocaine HCl (Xylocaine 5% Top. Ointment) 1 applic TP BID [facility] Last Admin: 05/07/18 11:19 Dose: 1 applic Lorazepam (Ativan Injection -) 1 mg IVPUSH HS [facility] Last Admin: 05/06/18 23:09 Dose: 1 mg Metoprolol Tartrate (Lopressor -) 50 mg PEG TID [facility] Last Admin: 05/07/18 05:32 Dose: 50 mg Miscellaneous (Duragesic Patch Waste) 1 each TD PRN PRN PRN Reason: PAIN Morphine Sulfate (Morphine Sulfate) 2 mg IVPUSH Q4H PRN PRN Reason: PAIN LEVEL 4 - 6 Last Admin: 05/07/18 11:14 Dose: 2 mg Nystatin/Triamcinolone Acetonide (Mycolog Ii Ointment -) 1 applic TP BID [facility] Last Admin: 05/07/18 11:20 Dose: 1 applic Ranitidine HCl (Zantac Oral Solution -) 150 mg PEG BID [facility] Last Admin: 05/07/18 11:19 Dose: 150 mg - Objective Vital Signs: Vital Signs Temperature 98.6 F 05/07/18 06:00 Pulse Rate 76 05/07/18 08:20 Respiratory Rate 24 H 05/07/18 14:13 Blood Pressure 127/60 05/07/18 06:00 O2 Sat by Pulse Oximetry (%) 100 05/07/18 08:20 Constitutional: Yes: Mild Distress Cardiovascular: Yes: S1, S2 Respiratory: Yes: Mechanically Ventilated Gastrointestinal: Yes: Other (peg tube, abd wall edema) Genitourinary: Yes: Montoya Present, Oliguria Musculoskeletal: Yes: Muscle Weakness Edema: Yes Edema: LUE: 3+, RUE: 3+, LLE: 3+, RLE: 3+ Neurological: Yes: Oriented Labs: CBC, BMP 05/05/18 10:40 05/07/18 06:45 INR, PTT INR 1.33 (0.83-1.09) H 04/29/18 17:30 Problem List - Problems (1) Altered mental status Code(s): R41.82 - ALTERED MENTAL STATUS, UNSPECIFIED (2) Atrial fibrillation Code(s): I48.91 - UNSPECIFIED ATRIAL FIBRILLATION (3) CAD (coronary artery disease) Code(s): I25.10 - ATHSCL HEART DISEASE OF [place] CORONARY ARTERY W/O ANG PCTRS (4) CKD (chronic kidney disease) Code(s): N18.9 - CHRONIC KIDNEY DISEASE, UNSPECIFIED (5) Diabetes mellitus Code(s): E11.9 - TYPE 2 DIABETES MELLITUS WITHOUT COMPLICATIONS (6) PVD (peripheral vascular disease) Code(s): I73.9 - PERIPHERAL VASCULAR DISEASE, UNSPECIFIED (7) Respiratory failure, acute and chronic Code(s): J96.20 - ACUTE AND CHR RESP FAILURE, UNSP W HYPOXIA OR HYPERCAPNIA (8) COPD (chronic obstructive pulmonary disease) Code(s): J44.9 - CHRONIC OBSTRUCTIVE PULMONARY DISEASE, UNSPECIFIED Qualifiers: Assessment/Plan Current Medications Generic Name Dose Route Start Last Admin Trade Name Freq PRN Reason Stop Dose Admin Acetaminophen 1,000 mg 05/01/18 15:14 05/06/18 23:41 Ofirmev Injection - IVPB 1,000 mg Q6H PRN Administration PAIN SCALE 6-10 Acetylcysteine 200 mg 05/01/18 16:00 05/07/18 15:35 Mucomyst 20 Oral / Inh Use Only* NEB 200 mg RQID JOE Administration Albuterol Sulfate 1 amp 05/07/18 12:30 05/07/18 15:36 Ventolin 0.083% Nebulizer Soln - NEB 1 amp RQID JOE Administration Amino Acids 30 ml 05/01/18 22:00 05/07/18 11:14 Prosource No Carb Liquid Pkt PEG 30 ml BID JOE Administration Aspirin 81 mg 05/02/18 10:00 05/07/18 11:18 Asa - PEG 81 mg DAILY JOE Administration Clopidogrel Bisulfate 75 mg 05/02/18 10:00 05/07/18 11:14 Plavix - PEG 75 mg DAILY JOE Administration Collagenase 1 applic 05/02/18 10:00 05/07/18 11:20 Santyl - TP 1 applic DAILY JOE Administration Protocol Digoxin 0.125 mg 05/02/18 10:00 05/04/18 11:27 Lanoxin - PEG 0.125 mg MoWeFr JOE Administration Fentanyl 1 patch 05/07/18 10:00 05/07/18 11:14 Duragesic 25mcg Patch - TD 05/14/18 09:49 1 patch Q72H JOE Administration Furosemide 80 mg 05/04/18 14:00 05/07/18 06:32 Lasix Injection - IVPB 80 mg BID@0600,1400 JOE Administration Ertapenem 0.5 gm/ Sodium 50 mls @ 100 mls/hr 05/04/18 12:45 05/07/18 11:19 Chloride IVPB 100 mls/hr DAILY JOE Administration Insulin Aspart 1 vial 05/03/18 11:00 05/07/18 11:20 Novolog Vial Sliding Scale - SQ Not Given TIDAC [facility] Protocol Lidocaine HCl 1 applic 05/01/18 22:00 05/07/18 11:19 Xylocaine 5% Top. Ointment TP 1 applic BID JOE Administration Lorazepam 1 mg 05/01/18 22:00 05/06/18 23:09 Ativan Injection - IVPUSH 1 mg HS JOE Administration Metoprolol Tartrate 50 mg 05/01/18 15:15 05/07/18 05:32 Lopressor - PEG 50 mg TID JOE Administration Miscellaneous 1 each 05/07/18 09:49 Duragesic Patch Waste TD PRN PRN PAIN Morphine Sulfate 2 mg 05/05/18 16:33 05/07/18 11:14 Morphine Sulfate IVPUSH 2 mg Q4H PRN Administration PAIN LEVEL 4 - 6 Nystatin/Triamcinolone Acetonide 1 applic 05/04/18 11:15 05/07/18 11:20 Mycolog Ii Ointment - TP 1 applic BID JOE Administration Ranitidine HCl 150 mg 05/01/18 22:00 05/07/18 11:19 Zantac Oral Solution - PEG 150 mg BID JOE Administration Impression 1. HOPE 2. CKD with unclear baseline 3. sepsis 4. chronic respiratory failure 5. peripheral vascular disease 6. 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 pt with peg tube 8. PNA 9. altered mental status 10. htn 11. DM 12. a-fib 13. hematuria 14. hyponatremia 15. hypoglycemia 16. severe malnutrition 17. hyperkalemia 18. nephrotic range proteinuria Plan - renal function worsening - ptis clinically doing poorly - family at bedside - pt now DNR - family do not want hd - cont to monitor output - pt has not had much of a response to the lasix, will continue for another day Dr Lira
--- NOTE | 2018-05-07 20:25 | PN ---
Progress Note (short form) - Note Progress Note: vented awake - interactive able to provide c/o pain - inspite of Morphine given 90 minutes earlier no family at bedside Vital Signs Period Temp Pulse Resp BP Sys/Corrigan Pulse Ox Last 24 Hr 98 F-99.3 F 75-88 15-28 132-148/61-78 99 vented - trache awake Heart: RRR Lung: scattered rhonchi on right with decreased BS left hemithorax grossly clear ant and laterally Abd: soft, nontender Ext: + edema, +gangrene anasarca 05/07/18 06:45 05/06/18 07:30 CBC, BMP 05/05/18 10:40 05/05/18 10:40 CBC, BMP 05/01/18 07:00 05/01/18 07:00 Microbiology 05/01/18 07:30 Blood - Peripheral Venous Blood Culture - Final NO GROWTH AFTER 5 DAYS INCUBATION 05/01/18 07:00 Blood - Peripheral Venous Blood Culture - Final NO GROWTH AFTER 5 DAYS INCUBATION 05/01/18 07:00 Sputum - Endotrachea Suction/Ventilator Gram Stain - Final 05/01/18 07:00 Sputum - Endotrachea Suction/Ventilator Sputum Culture - Final Staphylococcus Aureus Stenotrophomon.(X.)Maltophilia Escherichia Coli Esbl Eligibility Specialist 04/29/18 17:30 Urine - Urine Clean Catch Urine Culture - Final Escherichia Coli Esbl Eligibility Specialist Pseudomonas Aeruginosa Vr Ec Faecalis 04/30/18 15:09 Back Gram Stain - Final 04/30/18 15:09 Back Wound Culture - Final Escherichia Coli Esbl Eligibility Specialist Proteus Mirabilis Mr S Aureus Vr Ec Faecalis 04/29/18 17:30 Blood - Peripheral Venous Blood Culture - Final Staphylococcus Aureus 04/29/18 17:30 Blood - Peripheral Venous Blood Culture - Final Staphylococcus Aureus 04/30/18 10:38 Urine For Antigen Detection Legionella Antigen - Final 04/30/18 10:38 Urine For Antigen Detection Streptococcus pneumoniae Antigen (M - Final Active Medications Acetaminophen (Ofirmev Injection -) 1,000 mg IVPB Q6H PRN PRN Reason: PAIN SCALE 6-10 Last Admin: 05/06/18 23:41 Dose: 1,000 mg Acetylcysteine (Mucomyst 20 Oral / Inh Use Only*) 200 mg NEB RQID JOE Last Admin: 05/07/18 15:35 Dose: 200 mg Albuterol Sulfate (Ventolin 0.083% Nebulizer Soln -) 1 amp NEB RQID [facility] Last Admin: 05/07/18 15:36 Dose: 1 amp Amino Acids (Prosource No Carb Liquid Pkt) 30 ml PEG BID [facility] Last Admin: 05/07/18 11:14 Dose: 30 ml Aspirin (Asa -) 81 mg PEG DAILY [facility] Last Admin: 05/07/18 11:18 Dose: 81 mg Clopidogrel Bisulfate (Plavix -) 75 mg PEG DAILY [facility] Last Admin: 05/07/18 11:14 Dose: 75 mg Collagenase (Santyl -) 1 applic TP DAILY [facility]; Protocol Last Admin: 05/07/18 11:20 Dose: 1 applic Digoxin (Lanoxin -) 0.125 mg PEG MoWeFr [facility] Last Admin: 05/07/18 13:17 Dose: 0.125 mg Fentanyl (Duragesic 25mcg Patch -) 1 patch TD Q72H [facility] Stop: 05/14/18 09:49 Last Admin: 05/07/18 11:14 Dose: 1 patch Furosemide (Lasix Injection -) 80 mg IVPB BID@0600,1400 [facility] Last Admin: 05/07/18 15:17 Dose: 80 mg Ertapenem 0.5 gm/ Sodium (Chloride) 50 mls @ 100 mls/hr IVPB DAILY [facility] Last Admin: 05/07/18 11:19 Dose: 100 mls/hr Insulin Aspart (Novolog Vial Sliding Scale -) 1 vial SQ TIDAC [facility]; Protocol Last Admin: 05/07/18 17:51 Dose: Not Given Lidocaine HCl (Xylocaine 5% Top. Ointment) 1 applic TP BID [facility] Last Admin: 05/07/18 11:19 Dose: 1 applic Lorazepam (Ativan Injection -) 1 mg IVPUSH HS [facility] Last Admin: 05/06/18 23:09 Dose: 1 mg Metoprolol Tartrate (Lopressor -) 50 mg PEG TID [facility] Last Admin: 05/07/18 15:18 Dose: 50 mg Miscellaneous (Duragesic Patch Waste) 1 each TD PRN PRN PRN Reason: PAIN Morphine Sulfate (Morphine Sulfate) 2 mg IVPUSH Q4H PRN PRN Reason: PAIN LEVEL 4 - 6 Last Admin: 05/07/18 17:17 Dose: 2 mg Nystatin/Triamcinolone Acetonide (Mycolog Ii Ointment -) 1 applic TP BID [facility] Last Admin: 05/07/18 11:20 Dose: 1 applic Ranitidine HCl (Zantac Oral Solution -) 150 mg PEG BID [facility] Last Admin: 05/07/18 11:19 Dose: 150 mg assmt #Sepsis [id number]-ibpmcm blood cultures negative pneumonia/srgrkoblzxp-qehvxsav-kqbq ecoli- switch to ertapenam #resp failure acute on chronic - patient with trache - hx unclear Ac12/ 40 FiO2 CXR opacified right hemithorax clearing up but CXR looking more congested than last few days PNA / atelectasis / fluid overload Pulmonary consult appreciated # HOPE CKD baseline unknown / proteinuria / hematuria progressive deterioration of renal function HD has been offered but declined #PVD gangrene toes / fingers vascular consult wound care silvadene / lidocaine for open wounds dry gangrene no tx #DM hx multiple episodes of hypoglycemia early in admission BS has remained elevated or normal #HTN monitor Bp and treat as needed # severe malnutrition albumin 1.1 on admission PEG in place feeding - nephro AND add protein supplement HOB elevated # Comfort care / pain mamagement request palliative care consult DNR status / comfort care Problem List - Problems (1) Sepsis Code(s): A41.9 - SEPSIS, UNSPECIFIED ORGANISM Qualifiers: Sepsis type: methicillin resistant Staphylococcus aureus Qualified Code(s) : A41.02 - Sepsis due to Methicillin resistant Staphylococcus aureus (2) Respiratory failure, acute and chronic Code(s): J96.20 - ACUTE AND CHR RESP FAILURE, UNSP W HYPOXIA OR HYPERCAPNIA (3) Altered mental status Code(s): R41.82 - ALTERED MENTAL STATUS, UNSPECIFIED (4) CKD (chronic kidney disease) Code(s): N18.9 - CHRONIC KIDNEY DISEASE, UNSPECIFIED (5) PVD (peripheral vascular disease) Code(s): I73.9 - PERIPHERAL VASCULAR DISEASE, UNSPECIFIED (6) CAD (coronary artery disease) Code(s): I25.10 - ATHSCL HEART DISEASE OF [place] CORONARY ARTERY W/O ANG PCTRS (7) Atrial fibrillation Code(s): I48.91 - UNSPECIFIED ATRIAL FIBRILLATION (8) Hypertension Code(s): I10 - ESSENTIAL (PRIMARY) HYPERTENSION (9) Diabetes mellitus Code(s): E11.9 - TYPE 2 DIABETES MELLITUS WITHOUT COMPLICATIONS (10) Qwrhx-bc-chyhgpr renal failure Code(s): N17.9 - ACUTE KIDNEY FAILURE, UNSPECIFIED; N18.9 - CHRONIC KIDNEY DISEASE, UNSPECIFIED Qualifiers: Qualified Code(s): N17.9 - Acute kidney failure, unspecified; N18.9 - Chronic kidney disease, unspecified
[2018-05-07] MEDS: LORazepam 2 MG/ML SDV VIAL IVPUSH SCH (21:59)
[2018-05-08] MEDS: LIDOCAINE HCL 5% TOP OINTMENT 50 GM TUBE TP SCH ×3 (01:34→23:29)
[2018-05-08] MEDS: METOPROLOL TARTRATE 50 MG TABLET (FP) PEG SCH ×3 (05:24→21:35)
[2018-05-08] MEDS: FUROSEMIDE 40 MG/4 ML INJECTABLE VIAL IVPB SCH ×2 (05:24→15:03)
[2018-05-08] MEDS: INSULIN SLIDING SCALE (NOVOLOG) 1 VIAL SQ SCH ×3 (06:10→18:03)
[2018-05-08 06:57] LABS: BASO % 0.2 % (0-2.0); EOS % 0.7 % (0-4.5); HEMATOCRIT 20.1 % (32.4-45.2); LYMPH % 1.6 % (8-40); MCHC 33.3 g/dl (32.0-36.0); MEAN CELL VOLUME 93.2 fl (80-96); MEAN PLT VOLUME 8.1 fl (7.5-11.1); MONO % 2.6 % (3.8-10.2); NEUT % 94.9 % (42.8-82.8); PLATELET COUNT 284 K/MM3 (134-434); RBC 2.15 M/mm3 (3.60-5.2); RDW 19.6 % (11.6-15.6); WHITE BLOOD COUNT 26.2 K/mm3 (4.0-10.0)
[2018-05-08 07:25] LABS: HEMOGLOBIN 6.7 GM/dL (10.7-15.3)
[2018-05-08] MEDS: ALBUTEROL SO4 0.083% IH SOL 2.5 MG/3 ML VIAL.NEB. NEB SCH ×4 (07:25→20:30)
[2018-05-08] MEDS: ACETYLCYSTEINE 20% 200MG/ML 4 ML VIAL *FOR ORAL / INH USE ONLY NEB SCH ×4 (07:25→20:30)
[2018-05-08 08:28] LABS: CREATININE 4.3 mg/dL (0.55-1.3); GLUCOSE,RANDOM 150 mg/dL (74-106)
[2018-05-08 08:29] LABS: ANION GAP 13 MMOL/L (8-16); CALCIUM 7.3 mg/dL (8.5-10.1); CHLORIDE 95 mmol/L (98-107); CO2 19 mmol/L (21-32); POTASSIUM 4.4 mmol/L (3.5-5.1); SODIUM 127 mmol/L (136-145)
[2018-05-08 08:32] LABS: BLOOD UREA NITROGEN 155 mg/dL (7-18)
[2018-05-08] MEDS: AMINO ACIDS/PROTEIN HYDROLYS 30 ML LIQUID.PKT PEG SCH ×2 (09:02→23:28)
[2018-05-08] MEDS: RANITIDINE HCL 150 MG/10 ML UNIT-DOSE PEG SCH ×2 (09:02→23:28)
[2018-05-08] MEDS: CLOPIDOGREL BISULFATE 75 MG TABLET (FP) PEG SCH (09:03)
[2018-05-08] MEDS: ASPIRIN 81 MG CHEWABLE TABLETS PEG SCH (09:04)
[2018-05-08] MEDS ORDERED: PT OWN MED DRAWER 7, Y5N ONE (09:07)
[2018-05-08] MEDS: ERTAPENEM SODIUM 0.5 GM in SODIUM CHLORIDE 50 ML IVPB SCH (10:52)
[2018-05-08] MEDS: NYSTATIN/TRIAMCINOLONE TOPICAL OINTMENT 15 GM TUBE TP SCH ×3 (11:30→23:28)
--- NOTE | 2018-05-08 12:07 | PN ---
Progress Note, Physician History of Present Illness: PULMONARY ALERT,ON VENT SUPPORT,-RESP DISTRESS - Current Medication List Current Medications: Active Medications Acetaminophen (Ofirmev Injection -) 1,000 mg IVPB Q6H PRN PRN Reason: PAIN SCALE 6-10 Last Admin: 05/06/18 23:41 Dose: 1,000 mg Acetylcysteine (Mucomyst 20 Oral / Inh Use Only*) 200 mg NEB RQID [facility] Last Admin: 05/08/18 07:25 Dose: 200 mg Albuterol Sulfate (Ventolin 0.083% Nebulizer Soln -) 1 amp NEB RQID [facility] Last Admin: 05/08/18 07:25 Dose: 1 amp Amino Acids (Prosource No Carb Liquid Pkt) 30 ml PEG BID [facility] Last Admin: 05/08/18 09:02 Dose: 30 ml Aspirin (Asa -) 81 mg PEG DAILY [facility] Last Admin: 05/08/18 09:04 Dose: 81 mg Clopidogrel Bisulfate (Plavix -) 75 mg PEG DAILY [facility] Last Admin: 05/08/18 09:03 Dose: 75 mg Collagenase (Santyl -) 1 applic TP DAILY [facility]; Protocol Last Admin: 05/07/18 11:20 Dose: 1 applic Digoxin (Lanoxin -) 0.125 mg PEG MoWeFr [facility] Last Admin: 05/07/18 13:17 Dose: 0.125 mg Fentanyl (Duragesic 25mcg Patch -) 1 patch TD Q72H [facility] Stop: 05/14/18 09:49 Last Admin: 05/07/18 11:14 Dose: 1 patch Furosemide (Lasix Injection -) 80 mg IVPB BID@0600,1400 [facility] Last Admin: 05/08/18 05:24 Dose: 80 mg Ertapenem 0.5 gm/ Sodium (Chloride) 50 mls @ 100 mls/hr IVPB DAILY [facility] Last Admin: 05/08/18 10:52 Dose: 100 mls/hr Insulin Aspart (Novolog Vial Sliding Scale -) 1 vial SQ TIDAC [facility]; Protocol Last Admin: 05/08/18 06:10 Dose: 2 units Lidocaine HCl (Xylocaine 5% Top. Ointment) 1 applic TP BID [facility] Last Admin: 05/08/18 01:34 Dose: 1 applic Lorazepam (Ativan Injection -) 1 mg IVPUSH HS [facility] Last Admin: 05/07/18 21:59 Dose: 1 mg Metoprolol Tartrate (Lopressor -) 50 mg PEG TID [facility] Last Admin: 05/08/18 05:24 Dose: 50 mg Miscellaneous (Duragesic Patch Waste) 1 each TD PRN PRN PRN Reason: PAIN Morphine Sulfate (Morphine Sulfate) 2 mg IVPUSH Q4H PRN PRN Reason: PAIN LEVEL 4 - 6 Last Admin: 05/07/18 17:17 Dose: 2 mg Nystatin/Triamcinolone Acetonide (Mycolog Ii Ointment -) 1 applic TP BID [facility] Last Admin: 05/07/18 21:59 Dose: 1 applic Ranitidine HCl (Zantac Oral Solution -) 150 mg PEG BID [facility] Last Admin: 05/08/18 09:02 Dose: 150 mg - Objective Vital Signs: Vital Signs Temperature 98.6 F 05/08/18 11:40 Pulse Rate 64 05/08/18 11:24 Respiratory Rate 15 05/08/18 09:30 Blood Pressure 103/51 L 05/08/18 08:48 O2 Sat by Pulse Oximetry (%) 100 05/08/18 11:24 Constitutional: Yes: Well Nourished, Calm Eyes: Yes: WNL HENT: Yes: WNL Neck: Yes: Supple (TRACH) Cardiovascular: Yes: Regular Rate and Rhythm, S1, S2 Respiratory: Yes: Rhonchi (SCATTERED SHOAIB RHONCHI) Gastrointestinal: Yes: Normal Bowel Sounds, Soft Extremities: Yes: Other (GANGRENE) Edema: No Labs: CBC, BMP 05/08/18 06:00 05/08/18 06:00 INR, PTT INR 1.33 (0.83-1.09) H 04/29/18 17:30 Problem List - Problems (1) CKD (chronic kidney disease) Code(s): N18.9 - CHRONIC KIDNEY DISEASE, UNSPECIFIED (2) Diabetes mellitus Code(s): E11.9 - TYPE 2 DIABETES MELLITUS WITHOUT COMPLICATIONS (3) Hypertension Code(s): I10 - ESSENTIAL (PRIMARY) HYPERTENSION (4) Respiratory failure, acute and chronic Code(s): J96.20 - ACUTE AND CHR RESP FAILURE, UNSP W HYPOXIA OR HYPERCAPNIA (5) COPD (chronic obstructive pulmonary disease) Code(s): J44.9 - CHRONIC OBSTRUCTIVE PULMONARY DISEASE, UNSPECIFIED Qualifiers: Assessment/Plan A/P Chronic Respiratory Failure s/p Tracheostomy Atelectasis improving Pneumonia Staph Bacteremia Sacral Ulcers Sepsis CKD Hyponatremia Volume Overload - antibiotics per ID - chest PT, pulmonary toilet - continue mucomyst and inhaled bronchodilators - monitor CXR - enteral feeds - DVT prophylaxis DR ARROYO
[2018-05-08 12:18] LABS: ANISOCYTOSIS 1+; MACROCYTOSIS 0; PLATELET ESTIMATE NORMAL; TEAR DROP CELLS 1+
[2018-05-08] MEDS: COLLAGENASE CLOSTRIDIUM HIST. 30 GRAMS TUBE TP SCH (15:31)
--- NOTE | 2018-05-08 16:08 | PN ---
Progress Note (short form) - Note Progress Note: vented sedated / on fentanyl patch and MsO4 q2 hour poor urine out put no family at bedside Vital Signs Period Temp Pulse Resp BP Sys/Corrigan Pulse Ox Last 24 Hr 98 F-99.3 F 75-88 15-28 132-148/61-78 99 vented - trache awake Heart: RRR Lung: scattered rhonchi on right with decreased BS left hemithorax grossly clear ant and laterally Abd: soft, nontender Ext: + edema, +gangrene anasarca CBC, BMP 05/08/18 06:00 05/08/18 06:00 05/07/18 06:45 05/06/18 07:30 CBC, BMP 05/05/18 10:40 05/05/18 10:40 CBC, BMP 05/01/18 07:00 05/01/18 07:00 Microbiology 05/01/18 07:30 Blood - Peripheral Venous Blood Culture - Final NO GROWTH AFTER 5 DAYS INCUBATION 05/01/18 07:00 Blood - Peripheral Venous Blood Culture - Final NO GROWTH AFTER 5 DAYS INCUBATION 05/01/18 07:00 Sputum - Endotrachea Suction/Ventilator Gram Stain - Final 05/01/18 07:00 Sputum - Endotrachea Suction/Ventilator Sputum Culture - Final Staphylococcus Aureus Stenotrophomon.(X.)Maltophilia Escherichia Coli Esbl Retail Leader 04/29/18 17:30 Urine - Urine Clean Catch Urine Culture - Final Escherichia Coli Esbl Retail Leader Pseudomonas Aeruginosa Vr Ec Faecalis 04/30/18 15:09 Back Gram Stain - Final 04/30/18 15:09 Back Wound Culture - Final Escherichia Coli Esbl Retail Leader Proteus Mirabilis Mr S Aureus Vr Ec Faecalis 04/29/18 17:30 Blood - Peripheral Venous Blood Culture - Final Staphylococcus Aureus 04/29/18 17:30 Blood - Peripheral Venous Blood Culture - Final Staphylococcus Aureus 04/30/18 10:38 Urine For Antigen Detection Legionella Antigen - Final 04/30/18 10:38 Urine For Antigen Detection Streptococcus pneumoniae Antigen (M - Final Active Medications Acetaminophen (Ofirmev Injection -) 1,000 mg IVPB Q6H PRN PRN Reason: PAIN SCALE 6-10 Last Admin: 05/06/18 23:41 Dose: 1,000 mg Acetylcysteine (Mucomyst 20 Oral / Inh Use Only*) 200 mg NEB RQID [facility] Last Admin: 05/08/18 15:23 Dose: 200 mg Albuterol Sulfate (Ventolin 0.083% Nebulizer Soln -) 1 amp NEB RQID [facility] Last Admin: 05/08/18 15:23 Dose: 1 amp Amino Acids (Prosource No Carb Liquid Pkt) 30 ml PEG BID [facility] Last Admin: 05/08/18 09:02 Dose: 30 ml Digoxin (Lanoxin -) 0.125 mg PEG MoWeFr [facility] Last Admin: 05/07/18 13:17 Dose: 0.125 mg Fentanyl (Duragesic 25mcg Patch -) 1 patch TD Q72H [facility] Stop: 05/14/18 09:49 Last Admin: 05/07/18 11:14 Dose: 1 patch Furosemide (Lasix Injection -) 80 mg IVPB BID@0600,1400 [facility] Last Admin: 05/08/18 15:03 Dose: Not Given Ertapenem 0.5 gm/ Sodium (Chloride) 50 mls @ 100 mls/hr IVPB DAILY [facility] Last Admin: 05/08/18 10:52 Dose: 100 mls/hr Insulin Aspart (Novolog Vial Sliding Scale -) 1 vial SQ TIDAC [facility]; Protocol Last Admin: 05/08/18 12:13 Dose: 2 units Lidocaine HCl (Xylocaine 5% Top. Ointment) 1 applic TP BID [facility] Last Admin: 05/08/18 15:30 Dose: 1 applic Lorazepam (Ativan Injection -) 1 mg IVPUSH HS [facility] Last Admin: 05/07/18 21:59 Dose: 1 mg Metoprolol Tartrate (Lopressor -) 50 mg PEG TID [facility] Last Admin: 05/08/18 15:04 Dose: Not Given Miscellaneous (Duragesic Patch Waste) 1 each TD PRN PRN PRN Reason: PAIN Morphine Sulfate (Morphine Sulfate) 2 mg IVPUSH Q4H PRN PRN Reason: PAIN LEVEL 4 - 6 Last Admin: 05/07/18 17:17 Dose: 2 mg Nystatin/Triamcinolone Acetonide (Mycolog Ii Ointment -) 1 applic TP BID [facility] Last Admin: 05/08/18 15:31 Dose: 1 applic Ranitidine HCl (Zantac Oral Solution -) 150 mg PEG BID [facility] Last Admin: 05/08/18 09:02 Dose: 150 mg assmt # anemia continuos drop in H/H will discuss with daughter regarding transfusion currently have discussed and agreed with comfort care DNR status ordered #Sepsis eufwswmpjg-BONO-sonwyt blood cultures negative pneumonia/fcqlminlien-suuwwawl-zwlz ecoli- switch to ertapenam #resp failure acute on chronic - patient with trache - hx unclear Ac12/ 40 FiO2 CXR opacified right hemithorax clearing up but CXR looking more congested than last few days PNA / atelectasis / fluid overload Pulmonary consult appreciated # HOPE CKD baseline unknown / proteinuria / hematuria progressive deterioration of renal function HD has been offered but declined #PVD gangrene toes / fingers vascular consult wound care silvadene / lidocaine for open wounds dry gangrene no tx #DM hx multiple episodes of hypoglycemia early in admission BS has remained elevated or normal #HTN monitor Bp and treat as needed # severe malnutrition albumin 1.1 on admission PEG in place feeding - nephro AND add protein supplement HOB elevated # Comfort care / pain mamagement request palliative care consult DNR status / comfort care Problem List - Problems (1) Sepsis Code(s): A41.9 - SEPSIS, UNSPECIFIED ORGANISM Qualifiers: Sepsis type: methicillin resistant Staphylococcus aureus Qualified Code(s) : A41.02 - Sepsis due to Methicillin resistant Staphylococcus aureus (2) Respiratory failure, acute and chronic Code(s): J96.20 - ACUTE AND CHR RESP FAILURE, UNSP W HYPOXIA OR HYPERCAPNIA (3) Altered mental status Code(s): R41.82 - ALTERED MENTAL STATUS, UNSPECIFIED (4) CKD (chronic kidney disease) Code(s): N18.9 - CHRONIC KIDNEY DISEASE, UNSPECIFIED (5) PVD (peripheral vascular disease) Code(s): I73.9 - PERIPHERAL VASCULAR DISEASE, UNSPECIFIED (6) CAD (coronary artery disease) Code(s): I25.10 - ATHSCL HEART DISEASE OF [place] CORONARY ARTERY W/O ANG PCTRS (7) Atrial fibrillation Code(s): I48.91 - UNSPECIFIED ATRIAL FIBRILLATION (8) Hypertension Code(s): I10 - ESSENTIAL (PRIMARY) HYPERTENSION (9) Diabetes mellitus Code(s): E11.9 - TYPE 2 DIABETES MELLITUS WITHOUT COMPLICATIONS (10) Jnhkc-ww-ewqigip renal failure Code(s): N17.9 - ACUTE KIDNEY FAILURE, UNSPECIFIED; N18.9 - CHRONIC KIDNEY DISEASE, UNSPECIFIED Qualifiers: Qualified Code(s): N17.9 - Acute kidney failure, unspecified; N18.9 - Chronic kidney disease, unspecified
--- NOTE | 2018-05-08 16:26 | PN ---
Progress Note, Physician History of Present Illness: Pt seen and examined at bedside. She is arousable. family are at bedside. She is not making urine. - Current Medication List Current Medications: Active Medications Acetaminophen (Ofirmev Injection -) 1,000 mg IVPB Q6H PRN PRN Reason: PAIN SCALE 6-10 Last Admin: 05/06/18 23:41 Dose: 1,000 mg Acetylcysteine (Mucomyst 20 Oral / Inh Use Only*) 200 mg NEB RQID [facility] Last Admin: 05/08/18 15:23 Dose: 200 mg Albuterol Sulfate (Ventolin 0.083% Nebulizer Soln -) 1 amp NEB RQID [facility] Last Admin: 05/08/18 15:23 Dose: 1 amp Amino Acids (Prosource No Carb Liquid Pkt) 30 ml PEG BID [facility] Last Admin: 05/08/18 09:02 Dose: 30 ml Digoxin (Lanoxin -) 0.125 mg PEG MoWeFr [facility] Last Admin: 05/07/18 13:17 Dose: 0.125 mg Fentanyl (Duragesic 25mcg Patch -) 1 patch TD Q72H [facility] Stop: 05/14/18 09:49 Last Admin: 05/07/18 11:14 Dose: 1 patch Furosemide (Lasix Injection -) 80 mg IVPB BID@0600,1400 [facility] Last Admin: 05/08/18 15:03 Dose: Not Given Ertapenem 0.5 gm/ Sodium (Chloride) 50 mls @ 100 mls/hr IVPB DAILY [facility] Last Admin: 05/08/18 10:52 Dose: 100 mls/hr Insulin Aspart (Novolog Vial Sliding Scale -) 1 vial SQ TIDAC [facility]; Protocol Last Admin: 05/08/18 12:13 Dose: 2 units Lidocaine HCl (Xylocaine 5% Top. Ointment) 1 applic TP BID [facility] Last Admin: 05/08/18 15:30 Dose: 1 applic Lorazepam (Ativan Injection -) 1 mg IVPUSH HS [facility] Last Admin: 05/07/18 21:59 Dose: 1 mg Metoprolol Tartrate (Lopressor -) 50 mg PEG TID [facility] Last Admin: 05/08/18 15:04 Dose: Not Given Miscellaneous (Duragesic Patch Waste) 1 each TD PRN PRN PRN Reason: PAIN Morphine Sulfate (Morphine Sulfate) 2 mg IVPUSH Q4H PRN PRN Reason: PAIN LEVEL 4 - 6 Last Admin: 05/07/18 17:17 Dose: 2 mg Nystatin/Triamcinolone Acetonide (Mycolog Ii Ointment -) 1 applic TP BID [facility] Last Admin: 05/08/18 15:31 Dose: 1 applic Ranitidine HCl (Zantac Oral Solution -) 150 mg PEG BID [facility] Last Admin: 05/08/18 09:02 Dose: 150 mg - Objective Vital Signs: Vital Signs Temperature 97.6 F 05/08/18 15:37 Pulse Rate 64 05/08/18 15:37 Respiratory Rate 18 05/08/18 15:37 Blood Pressure 98/42 L 05/08/18 15:37 O2 Sat by Pulse Oximetry (%) 100 05/08/18 15:23 Constitutional: Yes: Calm Eyes: Yes: Conjunctiva Clear Cardiovascular: Yes: S1, S2 Respiratory: Yes: Mechanically Ventilated Gastrointestinal: Yes: Abdomen, Obese, Other (peg, abd wall edema) Genitourinary: Yes: Montoya Present, Oliguria Edema: Yes Edema: LUE: 3+, RUE: 3+, LLE: 3+, RLE: 3+ Neurological: Yes: Confusion Labs: CBC, BMP 05/08/18 06:00 05/08/18 06:00 INR, PTT INR 1.33 (0.83-1.09) H 04/29/18 17:30 Problem List - Problems (1) Altered mental status Code(s): R41.82 - ALTERED MENTAL STATUS, UNSPECIFIED (2) Atrial fibrillation Code(s): I48.91 - UNSPECIFIED ATRIAL FIBRILLATION (3) CAD (coronary artery disease) Code(s): I25.10 - ATHSCL HEART DISEASE OF [place] CORONARY ARTERY W/O ANG PCTRS (4) CKD (chronic kidney disease) Code(s): N18.9 - CHRONIC KIDNEY DISEASE, UNSPECIFIED (5) Diabetes mellitus Code(s): E11.9 - TYPE 2 DIABETES MELLITUS WITHOUT COMPLICATIONS (6) PVD (peripheral vascular disease) Code(s): I73.9 - PERIPHERAL VASCULAR DISEASE, UNSPECIFIED (7) Respiratory failure, acute and chronic Code(s): J96.20 - ACUTE AND CHR RESP FAILURE, UNSP W HYPOXIA OR HYPERCAPNIA (8) COPD (chronic obstructive pulmonary disease) Code(s): J44.9 - CHRONIC OBSTRUCTIVE PULMONARY DISEASE, UNSPECIFIED Qualifiers: Assessment/Plan Current Medications Generic Name Dose Route Start Last Admin Trade Name Freq PRN Reason Stop Dose Admin Acetaminophen 1,000 mg 05/01/18 15:14 05/06/18 23:41 Ofirmev Injection - IVPB 1,000 mg Q6H PRN Administration PAIN SCALE 6-10 Acetylcysteine 200 mg 05/01/18 16:00 05/08/18 15:23 Mucomyst 20 Oral / Inh Use Only* NEB 200 mg RQID [facility]E Administration Albuterol Sulfate 1 amp 05/07/18 12:30 05/08/18 15:23 Ventolin 0.083% Nebulizer Soln - NEB 1 amp RQID [facility]E Administration Amino Acids 30 ml 05/01/18 22:00 05/08/18 09:02 Prosource No Carb Liquid Pkt PEG 30 ml BID [facility] Administration Digoxin 0.125 mg 05/02/18 10:00 05/07/18 13:17 Lanoxin - PEG 0.125 mg MoWeFr [facility]E Administration Fentanyl 1 patch 05/07/18 10:00 05/07/18 11:14 Duragesic 25mcg Patch - TD 05/14/18 09:49 1 patch Q72H [facility] Administration Furosemide 80 mg 05/04/18 14:00 05/08/18 15:03 Lasix Injection - IVPB Not Given BID@0600,1400 [facility] Ertapenem 0.5 gm/ Sodium 50 mls @ 100 mls/hr 05/04/18 12:45 05/08/18 10:52 Chloride IVPB 100 mls/hr DAILY [facility] Administration Insulin Aspart 1 vial 05/03/18 11:00 05/08/18 12:13 Novolog Vial Sliding Scale - SQ 2 units TIDAC [facility] Administration Protocol Lidocaine HCl 1 applic 05/01/18 22:00 05/08/18 15:30 Xylocaine 5% Top. Ointment TP 1 applic BID [facility] Administration Lorazepam 1 mg 05/01/18 22:00 05/07/18 21:59 Ativan Injection - IVPUSH 1 mg HS [facility]E Administration Metoprolol Tartrate 50 mg 05/01/18 15:15 05/08/18 15:04 Lopressor - PEG Not Given TID [facility] Miscellaneous 1 each 05/07/18 09:49 Duragesic Patch Waste TD PRN PRN PAIN Morphine Sulfate 2 mg 05/05/18 16:33 05/07/18 17:17 Morphine Sulfate IVPUSH 2 mg Q4H PRN Administration PAIN LEVEL 4 - 6 Nystatin/Triamcinolone Acetonide 1 applic 05/04/18 11:15 05/08/18 15:31 Mycolog Ii Ointment - TP 1 applic BID [facility] Administration Ranitidine HCl 150 mg 05/01/18 22:00 05/08/18 09:02 Zantac Oral Solution - PEG 150 mg BID [facility] Administration Impression 1. HOPE 2. CKD with unclear baseline 3. sepsis 4. chronic respiratory failure 5. peripheral vascular disease 6. 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 pt with peg tube 8. PNA 9. altered mental status 10. htn 11. DM 12. a-fib 13. hematuria 14. hyponatremia 15. hypoglycemia 16. severe malnutrition 17. hyperkalemia 18. nephrotic range proteinuria Plan - renal function continues to worsen - pt remains oliguric and not responding to lasix - discussed with family - pt now DNR - family do not want hd - cont to monitor output Dr Lira
[2018-05-08] MEDS: LORazepam 2 MG/ML SDV VIAL IVPUSH SCH (23:28)
[2018-05-09] MEDS: METOPROLOL TARTRATE 50 MG TABLET (FP) PEG SCH ×3 (07:02→23:39)
[2018-05-09] MEDS: ACETYLCYSTEINE 20% 200MG/ML 4 ML VIAL *FOR ORAL / INH USE ONLY NEB SCH ×4 (07:07→20:35)
[2018-05-09] MEDS: INSULIN SLIDING SCALE (NOVOLOG) 1 VIAL SQ SCH ×3 (07:07→18:03)
[2018-05-09] MEDS: ALBUTEROL SO4 0.083% IH SOL 2.5 MG/3 ML VIAL.NEB. NEB SCH ×4 (07:07→20:35)
[2018-05-09 07:13] LABS: BASO % 0.2 % (0-2.0); EOS % 0.6 % (0-4.5); HEMATOCRIT 25.9 % (32.4-45.2); HEMOGLOBIN 8.6 GM/dL (10.7-15.3); LYMPH % 1.7 % (8-40); MCH 30.8 pg (25.7-33.7); MCHC 33.3 g/dl (32.0-36.0); MEAN CELL VOLUME 92.4 fl (80-96); MEAN PLT VOLUME 7.4 fl (7.5-11.1); MONO % 4.2 % (3.8-10.2); NEUT % 93.3 % (42.8-82.8); PLATELET COUNT 209 K/MM3 (134-434); RDW 16.9 % (11.6-15.6); WHITE BLOOD COUNT 18.2 K/mm3 (4.0-10.0)
[2018-05-09 07:51] LABS: ANION GAP 13 MMOL/L (8-16); CALCIUM 7.1 mg/dL (8.5-10.1); CHLORIDE 97 mmol/L (98-107); CO2 18 mmol/L (21-32); CREATININE 4.4 mg/dL (0.55-1.3); GLUCOSE,RANDOM 123 mg/dL (74-106); POTASSIUM 4.5 mmol/L (3.5-5.1); SODIUM 128 mmol/L (136-145)
[2018-05-09 08:01] LABS: BLOOD UREA NITROGEN 165 mg/dL (7-18)
[2018-05-09] MEDS: AMINO ACIDS/PROTEIN HYDROLYS 30 ML LIQUID.PKT PEG SCH ×2 (09:40→23:26)
[2018-05-09] MEDS: RANITIDINE HCL 150 MG/10 ML UNIT-DOSE PEG SCH ×2 (09:40→23:25)
[2018-05-09] MEDS: DIGOXIN 0.125 MG TABLET (FP) PEG SCH (11:58)
[2018-05-09] MEDS: MORPHINE SULFATE 2 MG/ML VIAL IVPUSH PRN ×2 (11:58→18:02)
[2018-05-09] MEDS: ERTAPENEM SODIUM 0.5 GM in SODIUM CHLORIDE 50 ML IVPB SCH (11:59)
[2018-05-09] MEDS: LIDOCAINE HCL 5% TOP OINTMENT 50 GM TUBE TP SCH ×2 (11:59→23:25)
[2018-05-09] MEDS: NYSTATIN/TRIAMCINOLONE TOPICAL OINTMENT 15 GM TUBE TP SCH ×2 (12:00→23:27)
--- NOTE | 2018-05-09 12:50 | PN ---
Progress Note (short form) - Note Progress Note: vented sedated / on fentanyl patch and MsO4 q2 hour poor urine out put no family at bedside care discussed with RN Vital Signs Period Temp Pulse Resp BP Sys/Corrigan Pulse Ox Last 24 Hr 98 F-99.3 F 75-88 15-28 132-148/61-78 99 vented - trache awake Heart: RRR Lung: scattered rhonchi on right with decreased BS left hemithorax grossly clear ant and laterally Abd: soft, nontender Ext: + edema, +gangrene anasarca CBC, BMP 05/09/18 06:00 05/09/18 06:00 CBC, BMP 05/08/18 06:00 05/08/18 06:00 05/07/18 06:45 05/06/18 07:30 CBC, BMP 05/05/18 10:40 05/05/18 10:40 Microbiology 05/01/18 07:30 Blood - Peripheral Venous Blood Culture - Final NO GROWTH AFTER 5 DAYS INCUBATION 05/01/18 07:00 Blood - Peripheral Venous Blood Culture - Final NO GROWTH AFTER 5 DAYS INCUBATION 05/01/18 07:00 Sputum - Endotrachea Suction/Ventilator Gram Stain - Final 05/01/18 07:00 Sputum - Endotrachea Suction/Ventilator Sputum Culture - Final Staphylococcus Aureus Stenotrophomon.(X.)Maltophilia Escherichia Coli Esbl Distribution Superintendent 04/29/18 17:30 Urine - Urine Clean Catch Urine Culture - Final Escherichia Coli Esbl Distribution Superintendent Pseudomonas Aeruginosa Vr Ec Faecalis 04/30/18 15:09 Back Gram Stain - Final 04/30/18 15:09 Back Wound Culture - Final Escherichia Coli Esbl Distribution Superintendent Proteus Mirabilis Mr S Aureus Vr Ec Faecalis 04/29/18 17:30 Blood - Peripheral Venous Blood Culture - Final Staphylococcus Aureus 04/29/18 17:30 Blood - Peripheral Venous Blood Culture - Final Staphylococcus Aureus 04/30/18 10:38 Urine For Antigen Detection Legionella Antigen - Final 04/30/18 10:38 Urine For Antigen Detection Streptococcus pneumoniae Antigen (M - Final Active Medications Acetaminophen (Ofirmev Injection -) 1,000 mg IVPB Q6H PRN PRN Reason: PAIN SCALE 6-10 Last Admin: 05/06/18 23:41 Dose: 1,000 mg Acetylcysteine (Mucomyst 20 Oral / Inh Use Only*) 200 mg NEB RQID [facility] Last Admin: 05/09/18 11:28 Dose: 200 mg Albuterol Sulfate (Ventolin 0.083% Nebulizer Soln -) 1 amp NEB RQID [facility] Last Admin: 05/09/18 11:29 Dose: 1 amp Amino Acids (Prosource No Carb Liquid Pkt) 30 ml PEG BID [facility] Last Admin: 05/09/18 09:40 Dose: 30 ml Digoxin (Lanoxin -) 0.125 mg PEG MoWeFr [facility] Last Admin: 05/09/18 11:58 Dose: 0.125 mg Fentanyl (Duragesic 25mcg Patch -) 1 patch TD Q72H [facility] Stop: 05/14/18 09:49 Last Admin: 05/07/18 11:14 Dose: 1 patch Ertapenem 0.5 gm/ Sodium (Chloride) 50 mls @ 100 mls/hr IVPB DAILY [facility] Last Admin: 05/09/18 11:59 Dose: 100 mls/hr Insulin Aspart (Novolog Vial Sliding Scale -) 1 vial SQ TIDAC [facility]; Protocol Last Admin: 05/09/18 12:00 Dose: 2 units Lidocaine HCl (Xylocaine 5% Top. Ointment) 1 applic TP BID [facility] Last Admin: 05/09/18 11:59 Dose: 1 applic Lorazepam (Ativan Injection -) 1 mg IVPUSH HS [facility] Last Admin: 05/08/18 23:28 Dose: 1 mg Metoprolol Tartrate (Lopressor -) 50 mg PEG TID [facility] Last Admin: 05/09/18 07:02 Dose: Not Given Miscellaneous (Duragesic Patch Waste) 1 each TD PRN PRN PRN Reason: PAIN Morphine Sulfate (Morphine Sulfate) 2 mg IVPUSH Q4H PRN PRN Reason: PAIN LEVEL 4 - 6 Last Admin: 05/09/18 11:58 Dose: 2 mg Nystatin/Triamcinolone Acetonide (Mycolog Ii Ointment -) 1 applic TP BID [facility] Last Admin: 05/09/18 12:00 Dose: 1 applic Ranitidine HCl (Zantac Oral Solution -) 150 mg PEG BID [facility] Last Admin: 05/09/18 09:40 Dose: 150 mg assmt # anemia continuos drop in H/H s/p transfusion 2 units PRBC currently have discussed and agreed with comfort care DNR status ordered #Sepsis hcihzernlh-LHPE-yuvdry blood cultures negative pneumonia/eiejyoinebh-cjbltyve-xcqo ecoli- switch to ertapenam #resp failure acute on chronic - patient with trache - hx unclear Ac12/ 40 FiO2 CXR opacified right hemithorax clearing up but CXR looking more congested than last few days PNA / atelectasis / fluid overload Pulmonary follow up appreciated # HOPE CKD baseline unknown / proteinuria / hematuria progressive deterioration of renal function HD has been offered but declined #PVD gangrene toes / fingers vascular consult wound care silvadene / lidocaine for open wounds dry gangrene no tx #DM hx multiple episodes of hypoglycemia early in admission BS has remained elevated or normal #HTN monitor Bp and treat as needed # severe malnutrition albumin 1.1 on admission PEG in place feeding - nephro AND add protein supplement HOB elevated # Comfort care / pain mamagement request palliative care consult DNR status / comfort care Problem List - Problems (1) Sepsis Code(s): A41.9 - SEPSIS, UNSPECIFIED ORGANISM Qualifiers: Sepsis type: methicillin resistant Staphylococcus aureus Qualified Code(s) : A41.02 - Sepsis due to Methicillin resistant Staphylococcus aureus (2) Respiratory failure, acute and chronic Code(s): J96.20 - ACUTE AND CHR RESP FAILURE, UNSP W HYPOXIA OR HYPERCAPNIA (3) Altered mental status Code(s): R41.82 - ALTERED MENTAL STATUS, UNSPECIFIED (4) CKD (chronic kidney disease) Code(s): N18.9 - CHRONIC KIDNEY DISEASE, UNSPECIFIED (5) PVD (peripheral vascular disease) Code(s): I73.9 - PERIPHERAL VASCULAR DISEASE, UNSPECIFIED (6) CAD (coronary artery disease) Code(s): I25.10 - ATHSCL HEART DISEASE OF [place] CORONARY ARTERY W/O ANG PCTRS (7) Atrial fibrillation Code(s): I48.91 - UNSPECIFIED ATRIAL FIBRILLATION (8) Hypertension Code(s): I10 - ESSENTIAL (PRIMARY) HYPERTENSION (9) Diabetes mellitus Code(s): E11.9 - TYPE 2 DIABETES MELLITUS WITHOUT COMPLICATIONS (10) Iuisu-he-vlvkksc renal failure Code(s): N17.9 - ACUTE KIDNEY FAILURE, UNSPECIFIED; N18.9 - CHRONIC KIDNEY DISEASE, UNSPECIFIED Qualifiers: Qualified Code(s): N17.9 - Acute kidney failure, unspecified; N18.9 - Chronic kidney disease, unspecified
--- NOTE | 2018-05-09 12:54 | PN ---
Progress Note, Physician History of Present Illness: Pt seen and examined at bedside. She appears more lethargic today. - Current Medication List Current Medications: Active Medications Acetaminophen (Ofirmev Injection -) 1,000 mg IVPB Q6H PRN PRN Reason: PAIN SCALE 6-10 Last Admin: 05/06/18 23:41 Dose: 1,000 mg Acetylcysteine (Mucomyst 20 Oral / Inh Use Only*) 200 mg NEB RQID [facility] Last Admin: 05/09/18 11:28 Dose: 200 mg Albuterol Sulfate (Ventolin 0.083% Nebulizer Soln -) 1 amp NEB RQID [facility] Last Admin: 05/09/18 11:29 Dose: 1 amp Amino Acids (Prosource No Carb Liquid Pkt) 30 ml PEG BID [facility] Last Admin: 05/09/18 09:40 Dose: 30 ml Digoxin (Lanoxin -) 0.125 mg PEG MoWeFr [facility] Last Admin: 05/09/18 11:58 Dose: 0.125 mg Fentanyl (Duragesic 25mcg Patch -) 1 patch TD Q72H [facility] Stop: 05/14/18 09:49 Last Admin: 05/07/18 11:14 Dose: 1 patch Ertapenem 0.5 gm/ Sodium (Chloride) 50 mls @ 100 mls/hr IVPB DAILY [facility] Last Admin: 05/09/18 11:59 Dose: 100 mls/hr Insulin Aspart (Novolog Vial Sliding Scale -) 1 vial SQ TIDAC [facility]; Protocol Last Admin: 05/09/18 12:00 Dose: 2 units Lidocaine HCl (Xylocaine 5% Top. Ointment) 1 applic TP BID [facility] Last Admin: 05/09/18 11:59 Dose: 1 applic Lorazepam (Ativan Injection -) 1 mg IVPUSH HS [facility] Last Admin: 05/08/18 23:28 Dose: 1 mg Metoprolol Tartrate (Lopressor -) 50 mg PEG TID [facility] Last Admin: 05/09/18 07:02 Dose: Not Given Miscellaneous (Duragesic Patch Waste) 1 each TD PRN PRN PRN Reason: PAIN Morphine Sulfate (Morphine Sulfate) 2 mg IVPUSH Q4H PRN PRN Reason: PAIN LEVEL 4 - 6 Last Admin: 05/09/18 11:58 Dose: 2 mg Nystatin/Triamcinolone Acetonide (Mycolog Ii Ointment -) 1 applic TP BID [facility] Last Admin: 05/09/18 12:00 Dose: 1 applic Ranitidine HCl (Zantac Oral Solution -) 150 mg PEG BID [facility] Last Admin: 05/09/18 09:40 Dose: 150 mg - Objective Vital Signs: Vital Signs Temperature 99.5 F 05/09/18 06:00 Pulse Rate 79 05/09/18 11:58 Respiratory Rate 15 05/09/18 10:00 Blood Pressure 98/50 L 05/09/18 06:00 O2 Sat by Pulse Oximetry (%) 97 05/09/18 10:00 Constitutional: Yes: No Distress Neck: Yes: Other (trache) Cardiovascular: Yes: S1, S2 Respiratory: Yes: Mechanically Ventilated Gastrointestinal: Yes: Other (abd wall edema) Genitourinary: Yes: Montoya Present Musculoskeletal: Yes: Muscle Weakness Edema: Yes Edema: LUE: 2+, RUE: 2+, LLE: 3+, RLE: 3+ Neurological: Yes: Lethargy Labs: CBC, BMP 05/09/18 06:00 05/09/18 06:00 INR, PTT INR 1.33 (0.83-1.09) H 04/29/18 17:30 Problem List - Problems (1) Altered mental status Code(s): R41.82 - ALTERED MENTAL STATUS, UNSPECIFIED (2) Atrial fibrillation Code(s): I48.91 - UNSPECIFIED ATRIAL FIBRILLATION (3) CAD (coronary artery disease) Code(s): I25.10 - ATHSCL HEART DISEASE OF [place] CORONARY ARTERY W/O ANG PCTRS (4) CKD (chronic kidney disease) Code(s): N18.9 - CHRONIC KIDNEY DISEASE, UNSPECIFIED (5) Diabetes mellitus Code(s): E11.9 - TYPE 2 DIABETES MELLITUS WITHOUT COMPLICATIONS (6) PVD (peripheral vascular disease) Code(s): I73.9 - PERIPHERAL VASCULAR DISEASE, UNSPECIFIED (7) Respiratory failure, acute and chronic Code(s): J96.20 - ACUTE AND CHR RESP FAILURE, UNSP W HYPOXIA OR HYPERCAPNIA (8) COPD (chronic obstructive pulmonary disease) Code(s): J44.9 - CHRONIC OBSTRUCTIVE PULMONARY DISEASE, UNSPECIFIED Qualifiers: Assessment/Plan Current Medications Generic Name Dose Route Start Last Admin Trade Name Freq PRN Reason Stop Dose Admin Acetaminophen 1,000 mg 05/01/18 15:14 05/06/18 23:41 Ofirmev Injection - IVPB 1,000 mg Q6H PRN Administration PAIN SCALE 6-10 Acetylcysteine 200 mg 05/01/18 16:00 05/09/18 11:28 Mucomyst 20 Oral / Inh Use Only* NEB 200 mg RQID JOE Administration Albuterol Sulfate 1 amp 05/07/18 12:30 05/09/18 11:29 Ventolin 0.083% Nebulizer Soln - NEB 1 amp RQID JOE Administration Amino Acids 30 ml 05/01/18 22:00 05/09/18 09:40 Prosource No Carb Liquid Pkt PEG 30 ml BID JOE Administration Digoxin 0.125 mg 05/02/18 10:00 05/09/18 11:58 Lanoxin - PEG 0.125 mg MoWeFr JOE Administration Fentanyl 1 patch 05/07/18 10:00 05/07/18 11:14 Duragesic 25mcg Patch - TD 05/14/18 09:49 1 patch Q72H JOE Administration Ertapenem 0.5 gm/ Sodium 50 mls @ 100 mls/hr 05/04/18 12:45 05/09/18 11:59 Chloride IVPB 100 mls/hr DAILY [facility]E Administration Insulin Aspart 1 vial 05/03/18 11:00 05/09/18 12:00 Novolog Vial Sliding Scale - SQ 2 units TIDAC JOE Administration Protocol Lidocaine HCl 1 applic 05/01/18 22:00 05/09/18 11:59 Xylocaine 5% Top. Ointment TP 1 applic BID JOE Administration Lorazepam 1 mg 05/01/18 22:00 05/08/18 23:28 Ativan Injection - IVPUSH 1 mg HS JOE Administration Metoprolol Tartrate 50 mg 05/01/18 15:15 05/09/18 07:02 Lopressor - PEG Not Given TID JOE Miscellaneous 1 each 05/07/18 09:49 Duragesic Patch Waste TD PRN PRN PAIN Morphine Sulfate 2 mg 05/05/18 16:33 05/09/18 11:58 Morphine Sulfate IVPUSH 2 mg Q4H PRN Administration PAIN LEVEL 4 - 6 Nystatin/Triamcinolone Acetonide 1 applic 05/04/18 11:15 05/09/18 12:00 Mycolog Ii Ointment - TP 1 applic BID JOE Administration Ranitidine HCl 150 mg 05/01/18 22:00 05/09/18 09:40 Zantac Oral Solution - PEG 150 mg BID JOE Administration Impression 1. HOPE 2. CKD with unclear baseline 3. sepsis 4. chronic respiratory failure 5. peripheral vascular disease 6. 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 pt with peg tube 8. PNA 9. altered mental status 10. htn 11. DM 12. a-fib 13. hematuria 14. hyponatremia 15. hypoglycemia 16. severe malnutrition 17. hyperkalemia 18. nephrotic range proteinuria Plan - renal function worse - pt fluid overloaded - discuss GOC with family - pt now DNR - family do not want hd - cont to monitor output - prognosis is poor Dr Lira
[2018-05-09 13:31] LABS: MACROCYTOSIS 0; PLATELET ESTIMATE NORMAL
--- NOTE | 2018-05-09 13:34 | PN ---
Progress Note, Physician History of Present Illness: PULMONARY ALERT,NO DISTRESS ON VENT SUPPORT AC MODE - Current Medication List Current Medications: Active Medications Acetaminophen (Ofirmev Injection -) 1,000 mg IVPB Q6H PRN PRN Reason: PAIN SCALE 6-10 Last Admin: 05/06/18 23:41 Dose: 1,000 mg Acetylcysteine (Mucomyst 20 Oral / Inh Use Only*) 200 mg NEB RQID [facility] Last Admin: 05/09/18 11:28 Dose: 200 mg Albuterol Sulfate (Ventolin 0.083% Nebulizer Soln -) 1 amp NEB RQID [facility] Last Admin: 05/09/18 11:29 Dose: 1 amp Amino Acids (Prosource No Carb Liquid Pkt) 30 ml PEG BID [facility] Last Admin: 05/09/18 09:40 Dose: 30 ml Digoxin (Lanoxin -) 0.125 mg PEG MoWeFr [facility] Last Admin: 05/09/18 11:58 Dose: 0.125 mg Fentanyl (Duragesic 25mcg Patch -) 1 patch TD Q72H [facility] Stop: 05/14/18 09:49 Last Admin: 05/07/18 11:14 Dose: 1 patch Ertapenem 0.5 gm/ Sodium (Chloride) 50 mls @ 100 mls/hr IVPB DAILY [facility] Last Admin: 05/09/18 11:59 Dose: 100 mls/hr Insulin Aspart (Novolog Vial Sliding Scale -) 1 vial SQ TIDAC [facility]; Protocol Last Admin: 05/09/18 12:00 Dose: 2 units Lidocaine HCl (Xylocaine 5% Top. Ointment) 1 applic TP BID [facility] Last Admin: 05/09/18 11:59 Dose: 1 applic Lorazepam (Ativan Injection -) 1 mg IVPUSH HS [facility] Last Admin: 05/08/18 23:28 Dose: 1 mg Metoprolol Tartrate (Lopressor -) 50 mg PEG TID [facility] Last Admin: 05/09/18 07:02 Dose: Not Given Miscellaneous (Duragesic Patch Waste) 1 each TD PRN PRN PRN Reason: PAIN Morphine Sulfate (Morphine Sulfate) 2 mg IVPUSH Q4H PRN PRN Reason: PAIN LEVEL 4 - 6 Last Admin: 05/09/18 11:58 Dose: 2 mg Nystatin/Triamcinolone Acetonide (Mycolog Ii Ointment -) 1 applic TP BID [facility] Last Admin: 05/09/18 12:00 Dose: 1 applic Ranitidine HCl (Zantac Oral Solution -) 150 mg PEG BID [facility] Last Admin: 05/09/18 09:40 Dose: 150 mg - Objective Vital Signs: Vital Signs Temperature 99.5 F 05/09/18 06:00 Pulse Rate 79 05/09/18 11:58 Respiratory Rate 15 05/09/18 10:00 Blood Pressure 98/50 L 05/09/18 06:00 O2 Sat by Pulse Oximetry (%) 97 05/09/18 10:00 Constitutional: Yes: Well Nourished, Calm Eyes: Yes: WNL HENT: Yes: WNL Neck: Yes: Supple (TRACH) Cardiovascular: Yes: Regular Rate and Rhythm, S1, S2 Respiratory: Yes: Rhonchi (SCATTERED RHONCHI) Gastrointestinal: Yes: Normal Bowel Sounds, Soft Extremities: Yes: Other (GANGRENE TOES) Edema: No Labs: CBC, BMP 05/09/18 06:00 05/09/18 06:00 INR, PTT INR 1.33 (0.83-1.09) H 04/29/18 17:30 Problem List - Problems (1) CKD (chronic kidney disease) Code(s): N18.9 - CHRONIC KIDNEY DISEASE, UNSPECIFIED (2) Diabetes mellitus Code(s): E11.9 - TYPE 2 DIABETES MELLITUS WITHOUT COMPLICATIONS (3) Hypertension Code(s): I10 - ESSENTIAL (PRIMARY) HYPERTENSION (4) Respiratory failure, acute and chronic Code(s): J96.20 - ACUTE AND CHR RESP FAILURE, UNSP W HYPOXIA OR HYPERCAPNIA (5) COPD (chronic obstructive pulmonary disease) Code(s): J44.9 - CHRONIC OBSTRUCTIVE PULMONARY DISEASE, UNSPECIFIED Qualifiers: Assessment/Plan A/P Chronic Respiratory Failure s/p Tracheostomy Atelectasis improving Pneumonia Staph Bacteremia Sacral Ulcers Sepsis CKD Hyponatremia Volume Overload Acute on chronic kidney disease - antibiotics per ID - chest PT, pulmonary toilet - continue mucomyst and inhaled bronchodilators - monitor CXR - enteral feeds - DVT prophylaxis - monitor lytes,renal function DR ARROYO
[2018-05-09 13:49] LABS: ANISOCYTOSIS 0; TEAR DROP CELLS 1+
--- NOTE | 2018-05-09 15:06 | PN ---
Progress Note (short form) - Note Progress Note: lethargic s/p transfusion Vital Signs Period Temp Pulse Resp BP Sys/Corrigan Pulse Ox Last 24 Hr 97.1 F-99.5 F 64-80 14-20 85-109/42-55 78-100 cor-rrr lungs decreased bs at bases abd soft, ext +edema +gangrene CBC, BMP 05/09/18 06:00 05/09/18 06:00 a/p sepsis [id number] blood cultures negative pneumonia/atelectasis--esbl ecoli- will switch to ertapenam sacral ulcer and urine represent colonization s/p drew change samuel/gzz-rdbaihpkg-qvieju has declined HD ?myeloma overall prognosis poor palliative care evaluation-consider d/c antibiotics contact isolation Problem List - Problems (1) Sepsis Code(s): A41.9 - SEPSIS, UNSPECIFIED ORGANISM Qualifiers: Sepsis type: sepsis due to unspecified organism Qualified Code(s): A41.9 - Sepsis, unspecified organism (2) Bacteremia Code(s): R78.81 - BACTEREMIA (3) Pneumonia Code(s): J18.9 - PNEUMONIA, UNSPECIFIED ORGANISM (4) CKD (chronic kidney disease) Code(s): N18.9 - CHRONIC KIDNEY DISEASE, UNSPECIFIED
[2018-05-09] MEDS ORDERED: INSULIN (NOVOLOG) ASPART 100 UNITS/ML 10ML VIAL ONE (18:27)
[2018-05-09] MEDS ORDERED: PT OWN MED DRAWER 7, Y5N ONE (18:28)
[2018-05-09] MEDS: LORazepam 2 MG/ML SDV VIAL IVPUSH SCH (23:27)
[2018-05-10] MEDS: METOPROLOL TARTRATE 50 MG TABLET (FP) PEG SCH ×2 (06:16→15:03)
[2018-05-10] MEDS: INSULIN SLIDING SCALE (NOVOLOG) 1 VIAL SQ SCH ×2 (06:16→17:53)
[2018-05-10] MEDS: ACETYLCYSTEINE 20% 200MG/ML 4 ML VIAL *FOR ORAL / INH USE ONLY NEB SCH ×3 (09:25→15:50)
[2018-05-10] MEDS: ALBUTEROL SO4 0.083% IH SOL 2.5 MG/3 ML VIAL.NEB. NEB SCH ×3 (09:31→15:50)
[2018-05-10] MEDS ORDERED: PT OWN MED DRAWER 7, Y5N ONE (10:18)
[2018-05-10] MEDS: fentaNYL 25mcg/hr PATCH.TD72 TD SCH (10:37)
[2018-05-10] MEDS: AMINO ACIDS/PROTEIN HYDROLYS 30 ML LIQUID.PKT PEG SCH (10:38)
[2018-05-10] MEDS: RANITIDINE HCL 150 MG/10 ML UNIT-DOSE PEG SCH (10:38)
[2018-05-10] MEDS: ERTAPENEM SODIUM 0.5 GM in SODIUM CHLORIDE 50 ML IVPB SCH (10:38)
--- NOTE | 2018-05-10 11:40 | DS ---
Physical Examination Vital Signs: Vital Signs Temperature 99.5 F 05/10/18 06:00 Pulse Rate 88 05/10/18 06:00 Respiratory Rate 18 05/10/18 09:22 Blood Pressure 91/42 L 05/10/18 06:00 O2 Sat by Pulse Oximetry (%) 97 05/09/18 10:00 Constitutional: Yes: No Distress, Calm Eyes: Yes: Conjunctiva Clear HENT: Yes: Other (Mechanically vented) Neck: Yes: Trachea Midline Cardiovascular: Yes: Regular Rate and Rhythm Respiratory: Yes: Mechanically Ventilated, On Nasal O2 Gastrointestinal: Yes: Normal Bowel Sounds, Soft, Other (PEG) ...Rectal Exam: Yes: Deferred Renal/: Yes: Montoya Present Breast(s): Yes: WNL Musculoskeletal: Yes: Muscle Weakness Extremities: Yes: Other (Edematous. Gangrenous fingers/toes) Edema: LUE: 2+, RUE: 1+, LLE: 2+, RLE: 2+ Peripheral Pulses WNL: No Integumentary: Yes: Pressure Ulcer Wound/Incision: Yes: Reddened Neurological: Yes: Alert ...Motor Strength: LUE, LLE, RUE, RLE (Bedbound) Psychiatric: Yes: Alert Labs: CBC, BMP 05/09/18 06:00 05/09/18 06:00 Discharge Summary Reason For Visit: HISTORY OF GASTRIC BYPASS, SHORTNESS OF BREATH Current Active Problems [id number] renal failure (Acute) Altered mental status (Acute) Atrial fibrillation (Acute) CAD (coronary artery disease) (Acute) CKD (chronic kidney disease) (Acute) Diabetes mellitus (Acute) Hypertension (Acute) PVD (peripheral vascular disease) (Acute) Respiratory failure, acute and chronic (Acute) Sepsis (Acute) Sepsis (Acute) Sepsis (Acute) Shortness of breath (Acute) Hospital Course: Followed by ID, pulm and Renal. Prognosis is poor. Discussed case with sw. Unable to transfer to [place] due to need for vent. Plan to DC back [facility] with Palliative care. Condition: Poor - Instructions Disposition: NURSING HOME FACILITY - Home Medications Comprehensive Discharge Medication List: Ambulatory Orders Acetaminophen 650 mg PO Q6H PRN 05/18/17 Diphenhydramine HCl 50 mg PO Q6H PRN 05/18/17 Metoclopramide HCl 5 mg PO TID 05/18/17 Montelukast Sodium [Singulair] 10 mg PO DAILY 05/18/17 Multivit-Min/Iron/Folic/Vit K1 [Centrum Chewables Adults Tab] 1 each PO DAILY Omeprazole 20 mg PO DAILY 05/18/17 Acetaminophen [Tylenol .Regular Strength -] 650 mg PO Q4H PRN tablet 05/27/17 Albuterol 2.5/Ipratropium 0.5 [Duoneb -] 1 amp NEB Q4H PRN amp 05/27/17 Amino Acids/Protein Hydrolys [Prosource No Carb Liquid Pkt] 30 ml PO BID@0800, 1730 packet 05/27/17 Budesonide [Pulmicort 0.5 mg Nebulizer -] 1 amp NEB RBID amp 05/27/17 Folic Acid - 1 mg PO DAILY 30 Days #30 tablet 05/27/17 Megestrol Acetate Oral Susp [Megace Oral Suspension -] 400 mg PO DAILY 30 Days # 300 ml 05/27/17 Montelukast Na [Singulair -] 10 mg PO HS tablet 05/27/17 Omeprazole 20 mg PO BID #60 capsule. 05/27/17 Polyethylene Glycol 3350 [Miralax 119 gm Btl -] 17 gm PO DAILY bottle 05/27/17 Sucralfate Oral Suspension [Carafate Oral Suspension -] 1 gm PO QID #0 ml Sucralfate [Carafate -] 1 gm PO QID 30 Days #120 tablet 05/27/17 Vitamin B Comp W-C [Total B with C -] 1 each PO DAILY tablet 05/27/17 Fentanyl 12 patch TD Q3D 04/30/18 Aspirin 81 mg PO DAILY 05/01/18 Clopidogrel 75 mg PEG DAILY 05/01/18 Collagenase Clostridium Hist. [Santyl -] 250 unit TP DAILY 05/01/18 Famotidine 20 tab PEG BID 05/01/18 Heparin - 5,000 unit SQ Q8H 05/01/18 Insulin Aspart [Novolog] 100 unit SQ BID 05/01/18 Metoprolol Tartrate [Lopressor] 100 mg PEG Q8H 05/01/18 Nitroglycerin Patch [Nitro-Dur] 0.4 mg TD DAILY 05/01/18 Silver Sulfadiazine 1% Top Cr [Silvadene -] 1 applic TP DAILY 05/01/18
[2018-05-10] MEDS: LIDOCAINE HCL 5% TOP OINTMENT 50 GM TUBE TP SCH (12:09)
[2018-05-10] MEDS: NYSTATIN/TRIAMCINOLONE TOPICAL OINTMENT 15 GM TUBE TP SCH (12:10)
--- NOTE | 2018-05-10 13:24 | PN ---
Progress Note, Physician History of Present Illness: pulmonary sleepy on vent support,ac mode,-resp distress - Current Medication List Current Medications: Active Medications Acetaminophen (Ofirmev Injection -) 1,000 mg IVPB Q6H PRN PRN Reason: PAIN SCALE 6-10 Last Admin: 05/06/18 23:41 Dose: 1,000 mg Acetylcysteine (Mucomyst 20 Oral / Inh Use Only*) 200 mg NEB RQID [facility] Last Admin: 05/10/18 12:09 Dose: 200 mg Albuterol Sulfate (Ventolin 0.083% Nebulizer Soln -) 1 amp NEB RQID [facility] Last Admin: 05/10/18 09:31 Dose: 1 amp Amino Acids (Prosource No Carb Liquid Pkt) 30 ml PEG BID [facility] Last Admin: 05/10/18 10:38 Dose: 30 ml Digoxin (Lanoxin -) 0.125 mg PEG MoWeFr [facility] Last Admin: 05/09/18 11:58 Dose: 0.125 mg Fentanyl (Duragesic 25mcg Patch -) 1 patch TD Q72H [facility] Stop: 05/14/18 09:49 Last Admin: 05/10/18 10:37 Dose: 1 patch Ertapenem 0.5 gm/ Sodium (Chloride) 50 mls @ 100 mls/hr IVPB DAILY [facility] Last Admin: 05/10/18 10:38 Dose: 100 mls/hr Insulin Aspart (Novolog Vial Sliding Scale -) 1 vial SQ BIDAC [facility]; Protocol Last Admin: 05/10/18 06:16 Dose: Not Given Lidocaine HCl (Xylocaine 5% Top. Ointment) 1 applic TP BID [facility] Last Admin: 05/10/18 12:09 Dose: 1 applic Lorazepam (Ativan Injection -) 1 mg IVPUSH HS [facility] Last Admin: 05/09/18 23:27 Dose: 1 mg Metoprolol Tartrate (Lopressor -) 50 mg PEG TID [facility] Last Admin: 05/10/18 06:16 Dose: Not Given Miscellaneous (Duragesic Patch Waste) 1 each TD PRN PRN PRN Reason: PAIN Last Admin: 05/10/18 10:45 Dose: 1 each Morphine Sulfate (Morphine Sulfate) 2 mg IVPUSH Q4H PRN PRN Reason: PAIN LEVEL 4 - 6 Last Admin: 05/09/18 18:02 Dose: 2 mg Nystatin/Triamcinolone Acetonide (Mycolog Ii Ointment -) 1 applic TP BID [facility] Last Admin: 05/10/18 12:10 Dose: 1 applic Ranitidine HCl (Zantac Oral Solution -) 150 mg PEG BID [facility] Last Admin: 05/10/18 10:38 Dose: 150 mg - Objective Vital Signs: Vital Signs Temperature 99.2 F 05/10/18 09:00 Pulse Rate 89 05/10/18 09:00 Respiratory Rate 21 H 05/10/18 12:12 Blood Pressure 101/42 L 05/10/18 09:00 O2 Sat by Pulse Oximetry (%) 97 05/09/18 10:00 Constitutional: Yes: Well Nourished, Other (sleepy) Eyes: Yes: WNL HENT: Yes: WNL Neck: Yes: Supple (trach) Cardiovascular: Yes: Regular Rate and Rhythm, S1, S2 Respiratory: Yes: Rhonchi (few scattered rhonchi) Gastrointestinal: Yes: Normal Bowel Sounds, Soft Extremities: Yes: Other (gangrene toes) Edema: Yes Labs: CBC, BMP 05/09/18 06:00 05/09/18 06:00 INR, PTT INR 1.33 (0.83-1.09) H 04/29/18 17:30 Problem List - Problems (1) CKD (chronic kidney disease) Code(s): N18.9 - CHRONIC KIDNEY DISEASE, UNSPECIFIED (2) Diabetes mellitus Code(s): E11.9 - TYPE 2 DIABETES MELLITUS WITHOUT COMPLICATIONS (3) Hypertension Code(s): I10 - ESSENTIAL (PRIMARY) HYPERTENSION (4) Respiratory failure, acute and chronic Code(s): J96.20 - ACUTE AND CHR RESP FAILURE, UNSP W HYPOXIA OR HYPERCAPNIA (5) COPD (chronic obstructive pulmonary disease) Code(s): J44.9 - CHRONIC OBSTRUCTIVE PULMONARY DISEASE, UNSPECIFIED Qualifiers: Assessment/Plan A/P Chronic Respiratory Failure s/p Tracheostomy Atelectasis improving Pneumonia Staph Bacteremia Sacral Ulcers Sepsis CKD Hyponatremia Volume Overload Acute on chronic kidney disease - chest PT, pulmonary toilet - continue mucomyst and inhaled bronchodilators - enteral feeds - DVT prophylaxis - monitor lytes,renal function DR ARROYO
--- NOTE | 2018-05-10 16:48 | PN ---
Progress Note, Physician History of Present Illness: Pt seen and examined at bedside. She is lethargic today. Pt is clinically doing poorly. - Current Medication List Current Medications: Active Medications Acetaminophen (Ofirmev Injection -) 1,000 mg IVPB Q6H PRN PRN Reason: PAIN SCALE 6-10 Last Admin: 05/06/18 23:41 Dose: 1,000 mg Acetylcysteine (Mucomyst 20 Oral / Inh Use Only*) 200 mg NEB RQID [facility] Last Admin: 05/10/18 15:50 Dose: 200 mg Albuterol Sulfate (Ventolin 0.083% Nebulizer Soln -) 1 amp NEB RQID [facility] Last Admin: 05/10/18 15:50 Dose: 1 amp Amino Acids (Prosource No Carb Liquid Pkt) 30 ml PEG BID [facility] Last Admin: 05/10/18 10:38 Dose: 30 ml Digoxin (Lanoxin -) 0.125 mg PEG MoWeFr [facility] Last Admin: 05/09/18 11:58 Dose: 0.125 mg Fentanyl (Duragesic 25mcg Patch -) 1 patch TD Q72H [facility] Stop: 05/14/18 09:49 Last Admin: 05/10/18 10:37 Dose: 1 patch Ertapenem 0.5 gm/ Sodium (Chloride) 50 mls @ 100 mls/hr IVPB DAILY [facility] Last Admin: 05/10/18 10:38 Dose: 100 mls/hr Insulin Aspart (Novolog Vial Sliding Scale -) 1 vial SQ BIDAC [facility]; Protocol Last Admin: 05/10/18 06:16 Dose: Not Given Lidocaine HCl (Xylocaine 5% Top. Ointment) 1 applic TP BID [facility] Last Admin: 05/10/18 12:09 Dose: 1 applic Lorazepam (Ativan Injection -) 1 mg IVPUSH HS [facility] Last Admin: 05/09/18 23:27 Dose: 1 mg Metoprolol Tartrate (Lopressor -) 50 mg PEG TID [facility] Last Admin: 05/10/18 15:03 Dose: Not Given Miscellaneous (Duragesic Patch Waste) 1 each TD PRN PRN PRN Reason: PAIN Last Admin: 05/10/18 10:45 Dose: 1 each Morphine Sulfate (Morphine Sulfate) 2 mg IVPUSH Q4H PRN PRN Reason: PAIN LEVEL 4 - 6 Last Admin: 05/09/18 18:02 Dose: 2 mg Nystatin/Triamcinolone Acetonide (Mycolog Ii Ointment -) 1 applic TP BID [facility] Last Admin: 05/10/18 12:10 Dose: 1 applic Ranitidine HCl (Zantac Oral Solution -) 150 mg PEG BID [facility] Last Admin: 05/10/18 10:38 Dose: 150 mg - Objective Vital Signs: Vital Signs Temperature 98.6 F 05/10/18 14:51 Pulse Rate 93 H 05/10/18 14:51 Respiratory Rate 23 H 05/10/18 16:00 Blood Pressure 109/46 L 05/10/18 14:51 O2 Sat by Pulse Oximetry (%) 97 05/09/18 10:00 Constitutional: Yes: Calm Eyes: Yes: Conjunctiva Clear HENT: Yes: Atraumatic Cardiovascular: Yes: S1, S2 Respiratory: Yes: Mechanically Ventilated Gastrointestinal: Yes: Soft Genitourinary: Yes: Oliguria Musculoskeletal: Yes: Muscle Weakness Edema: Yes Edema: LUE: 3+, RUE: 3+, LLE: 3+, RLE: 3+ Neurological: Yes: Lethargy Labs: CBC, BMP 05/09/18 06:00 05/09/18 06:00 INR, PTT INR 1.33 (0.83-1.09) H 04/29/18 17:30 Problem List - Problems (1) Altered mental status Code(s): R41.82 - ALTERED MENTAL STATUS, UNSPECIFIED (2) Atrial fibrillation Code(s): I48.91 - UNSPECIFIED ATRIAL FIBRILLATION (3) CAD (coronary artery disease) Code(s): I25.10 - ATHSCL HEART DISEASE OF [place] CORONARY ARTERY W/O ANG PCTRS (4) CKD (chronic kidney disease) Code(s): N18.9 - CHRONIC KIDNEY DISEASE, UNSPECIFIED (5) Diabetes mellitus Code(s): E11.9 - TYPE 2 DIABETES MELLITUS WITHOUT COMPLICATIONS (6) PVD (peripheral vascular disease) Code(s): I73.9 - PERIPHERAL VASCULAR DISEASE, UNSPECIFIED (7) Respiratory failure, acute and chronic Code(s): J96.20 - ACUTE AND CHR RESP FAILURE, UNSP W HYPOXIA OR HYPERCAPNIA (8) COPD (chronic obstructive pulmonary disease) Code(s): J44.9 - CHRONIC OBSTRUCTIVE PULMONARY DISEASE, UNSPECIFIED Qualifiers: Assessment/Plan Current Medications Generic Name Dose Route Start Last Admin Trade Name Freq PRN Reason Stop Dose Admin Acetaminophen 1,000 mg 05/01/18 15:14 05/06/18 23:41 Ofirmev Injection - IVPB 1,000 mg Q6H PRN Administration PAIN SCALE 6-10 Acetylcysteine 200 mg 05/01/18 16:00 05/10/18 15:50 Mucomyst 20 Oral / Inh Use Only* NEB 200 mg RQID [facility] Administration Albuterol Sulfate 1 amp 05/07/18 12:30 05/10/18 15:50 Ventolin 0.083% Nebulizer Soln - NEB 1 amp RQID [facility] Administration Amino Acids 30 ml 05/01/18 22:00 05/10/18 10:38 Prosource No Carb Liquid Pkt PEG 30 ml BID [facility] Administration Digoxin 0.125 mg 05/02/18 10:00 05/09/18 11:58 Lanoxin - PEG 0.125 mg MoWeFr [facility] Administration Fentanyl 1 patch 05/07/18 10:00 05/10/18 10:37 Duragesic 25mcg Patch - TD 05/14/18 09:49 1 patch Q72H [facility] Administration Ertapenem 0.5 gm/ Sodium 50 mls @ 100 mls/hr 05/04/18 12:45 05/10/18 10:38 Chloride IVPB 100 mls/hr DAILY [facility] Administration Insulin Aspart 1 vial 05/10/18 07:00 05/10/18 06:16 Novolog Vial Sliding Scale - SQ Not Given BIDAC [facility] Protocol Lidocaine HCl 1 applic 05/01/18 22:00 05/10/18 12:09 Xylocaine 5% Top. Ointment TP 1 applic BID [facility] Administration Lorazepam 1 mg 05/01/18 22:00 05/09/18 23:27 Ativan Injection - IVPUSH 1 mg HS [facility] Administration Metoprolol Tartrate 50 mg 05/01/18 15:15 05/10/18 15:03 Lopressor - PEG Not Given TID [facility] Miscellaneous 1 each 05/07/18 09:49 05/10/18 10:45 Duragesic Patch Waste TD 1 each PRN PRN Administration PAIN Morphine Sulfate 2 mg 05/05/18 16:33 05/09/18 18:02 Morphine Sulfate IVPUSH 2 mg Q4H PRN Administration PAIN LEVEL 4 - 6 Nystatin/Triamcinolone Acetonide 1 applic 05/04/18 11:15 05/10/18 12:10 Mycolog Ii Ointment - TP 1 applic BID [facility] Administration Ranitidine HCl 150 mg 05/01/18 22:00 05/10/18 10:38 Zantac Oral Solution - PEG 150 mg BID [facility] Administration Impression 1. HOPE 2. CKD with unclear baseline 3. sepsis 4. chronic respiratory failure 5. peripheral vascular disease 6. 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 pt with peg tube 8. PNA 9. altered mental status 10. htn 11. DM 12. a-fib 13. hematuria 14. hyponatremia 15. hypoglycemia 16. severe malnutrition 17. hyperkalemia 18. nephrotic range proteinuria Plan - pt with oliguric renal failure - family do not want aggressive measures - family did not want HD - cont current care - vent support - prognosis poor Dr Lira
[2018-05-10 20:18] VITALS: BP 102/40; PULSE 91; TEMP 99.5
== END 2018-05-10 19:15 | DRG 720 ==
LOC: JER 16:40 → JERBED 19:03 → J5S 04-30 17:53
PROVIDERS: ADMIT Family Medicine; ATTEND Family Medicine
PROC: 5A1955Z Respiratory Ventilation, Greater than 96 Consecutive Hours (ICD-10-PCS; 2018-04-30)
PROC: 05HQ33Z Insertion of Infusion Device into Left External Jugular Vein, Percutaneous Approach (ICD-10-PCS; principal; 2018-05-02)
DX: A41.01 Sepsis due to Methicillin susceptible Staphylococcus aureus (principal); I25.10 Atherosclerotic heart disease of native coronary artery without angina pectoris; E78.5 Hyperlipidemia, unspecified; D64.9 Anemia, unspecified; I48.91 Unspecified atrial fibrillation; I12.9 Hypertensive chronic kidney disease with stage 1 through stage 4 chronic kidney disease, or unspecified chronic kidney disease; N18.9 Chronic kidney disease, unspecified; E11.22 Type 2 diabetes mellitus with diabetic chronic kidney disease; E11.51 Type 2 diabetes mellitus with diabetic peripheral angiopathy without gangrene; N17.9 Acute kidney failure, unspecified; J18.9 Pneumonia, unspecified organism; E43 Unspecified severe protein-calorie malnutrition; L89.153 Pressure ulcer of sacral region, stage 3; E66.9 Obesity, unspecified; Z68.35 Body mass index [BMI] 35.0-35.9, adult; J96.20 Acute and chronic respiratory failure, unspecified whether with hypoxia or hypercapnia; R06.02 Shortness of breath; R31.9 Hematuria, unspecified; E87.5 Hyperkalemia; E87.1 Hypo-osmolality and hyponatremia; J98.11 Atelectasis; R10.84 Generalized abdominal pain; J44.9 Chronic obstructive pulmonary disease, unspecified; E11.52 Type 2 diabetes mellitus with diabetic peripheral angiopathy with gangrene; I96 Gangrene, not elsewhere classified; Z98.84 Bariatric surgery status; Z93.1 Gastrostomy status; Z99.2 Dependence on renal dialysis; Z93.0 Tracheostomy status; Z66 Do not resuscitate
CPT/HCPCS: 36415; 36430; 36600; 70450-TC; 71045-TC-FY; 71250-TC; 74176-TC; 76775-TC; 76856-TC; 80048; 80053; 80162; 81003; 81015; 82150; 82375; 82436; 82533; 82550; 82553; 82570; 82803; 82962; 83050; 83516; 83520; 83605; 83690; 83735; 83880; 83883; 83930; 83935; 84100; 84133; 84155; 84156; 84165; 84300; 84443; 84484; 85025; 85027; 85610; 85730; 86038; 86225; 86256; 86704; 86706; 86708; 86850; 86900; 86901; 86922; 87040; 87070; 87086; 87186; 87205; 87340; 87522; 87899; 93005; 93010; 93306-TC; 94002; 94640; 99285-25; G0480; J0131; J7030; P9038; P9047; P9058